=== PATIENT | male | born 1945 | race Caucasian/White ===

== ENCOUNTER 2024-05-14 18:15 | Inpatient (IN) | payer MEDICARE, SELFPAY ==
[2024-05-14] VITALS (8 sets, daily range): BP systolic 105–145; BP diastolic 55–82; BMI 28.9
--- NOTE | 2024-05-14 12:04 | ED.PDOC.TRB ---
ED Provider Triage
-
Patient seen by provider in Triage?: Seen in Triage
Attestation: A medical screening examination has been initiated by a qualified medical provider. Based on the assessment performed at this time, it has been determined that an emergent medical condition may exist and the patient has been informed
that further medical evaluation and possible additional diagnostic testing may be needed.
HPI: 79-year-old male presents to the emergency department for evaluation of diffuse leg swelling and fatigue. He attributes the fatigue to not eating or drinking as again he is concerned that anything he drinks will go to his legs. Swelling is
been ongoing for the past 1 to 2 weeks. No history of cardiac or liver disease. Admits that he does not routinely seek medical care.
GENERAL: Alert , in no apparent distress, appears generally pale versus jaundiced
EYE: No visual abnormalities.
NECK: Trachea midline
ENT: No visible abnormalities.
LUNGS: No acute respiratory distress
NEUROLOGICAL: Alert and oriented
SKIN: Skin intact. No visible changes.
MUSCULOSKELETAL: Moving extremities normally, diffuse edema bilateral lower extremities
PSYCH: Normal and appropriate interaction.
Suspect hepatic versus cardiogenic edema, higher index of suspicion for hepatic due to either jaundice or severe pallor that is noted. Check EKG, cardiac labs, will add direct bilirubin and CPK.
This is a medical evaluation conducted in person to initiate diagnostic evaluation and provide initial therapeutics. Please see further documentation by the treating clinician.
[2024-05-14 12:17] LABS: % Basophils 0.2 % (0-2); % Immature Granulocytes 0.3 % (0-0.5); % Lymphocytes 5.8 % (20.5-51.1); % Monocytes 9.3 % (1.7-9.3); % Neutrophils 84.4 % (42.2-75.2); Absolute Lymphocytes 0.7 10^3/uL (1.2-3.4); Absolute Monocytes 1.2 10^3/uL (0.1-0.6); Absolute Neutrophils 10.9 10^3/uL (1.4-6.5); Hematocrit 40.8 % (39.0-52.0); Hemoglobin 13.5 g/dL (13.0-18.0); Mean Corp Hgb Conc. 33.1 g/dL (33.0-37.0); Mean Corpuscular Hgb 28.2 pg (27.0-31.0); Mean Corpuscular Volume 85.2 fL (80.0-94.0); Mean Platelet Volume 9.8 fL (7.4-10.4); Nucleated Red Blood Cells % 0.2 % (-); Platelet Count 246 10^3/uL (130-400); Red Blood Cell Count 4.79 10^6/uL (4.70-6.10); Red Cell Dist. Width 14.4 % (11.5-14.5); White Blood Cell Count 12.9 10^3/uL (4.8-10.8)
[2024-05-14 12:29] LABS: ALT (SGPT) 289 U/L (0-50); AST (SGOT) 232 U/L (17-59); Albumin 3.9 g/dl (3.5-5.0); Alkaline Phosphatase 78 U/L (38-126); Blood Urea Nitrogen 56 mg/dl (9-20); Calcium 9.9 mg/dl (8.4-10.2); Carbon Dioxide 23 mmol/L (22-30); Chloride 98 mmol/L (98-107); Glucose 114 mg/dl (70-99); Potassium 5.6 mmol/L (3.5-5.1); Sodium 135 mmol/L (135-145); Total Bilirubin 2.6 mg/dl (0.2-1.3); Total Protein 6.7 g/dl (6.3-8.2); eGFR > 60.00
[2024-05-14 12:41] LABS: NT-proBNP > 27000 pg/ml; Troponin I < 0.012 ng/ml
[2024-05-14 13:15] LABS: Creatine Phosphokinase 73 U/L (55-170); Direct Bilirubin 0.9 mg/dl (0.0-0.4)
[2024-05-14 14:28] LABS: INR 1.77; PT 20.5 Sec (11.4-14.6)
--- NOTE | 2024-05-14 15:33 | ED.GENMED ---
History of Present Illness
General
Chief Complaint: Swelling
Source: patient
Exam Limitations: none
Time Seen by Provider: 05/14/24 15:08
Nursing documentation reviewed up to this point in time: agreed with
History of Present Illness
History of Present Illness:
79-year-old male presents emergency room complaining of leg swelling, bug bites. He has noticed he cannot put his shoes on. He also does get somewhat short of breath when talking. He denies seeing the bugs biting him.
Past History
Past History
ED Past Medical History: None (Has not seen a physician in 17 years)
ED Past Surgical History: Other (Cataracts)
Social History
Tobacco: Non-smoker
Alcohol: None
Drug: None
Living: alone
Review of Systems
Review of Systems
Allergies reviewed?: Yes
All Other Systems: Not applicable
Constitutional: Reports weight gain and fatigue
EENT: Reports no symptoms
Respiratory: Reports trouble breathing
Cardiac: Reports no symptoms; Denies chest pain
ABD/GI: Reports no symptoms
: Reports no symptoms
Musculoskeletal: Reports edema
Skin: Reports rash
Neurological: Reports no symptoms
Endocrine: Reports no symptoms
Hematologic/Lymphatic: Reports no symptoms
Psychiatric: Reports no symptoms
Phy Exam
Physical Exam
Physical Exam:
Physical Exam
General: Afebrile
Neck: supple. no meningeal signs. normal posterior pharynx
Heart: s1/s2 regular rate and rhythm, no murmur. equal radial
pulses.
HEENT: Pupils equal round reactive to light, EOMI
Lungs: Mild rales bilaterally
Abdomen: normal bowel sounds. not tender. no CVAT
Neuro: alert and oriented. no focal neurological deficits cranial nerves II through XII intact
Skin: Papular rash on all 4 extremities and trunk
Psychiatric: well kept. interactive and cooperative
Extremities: Bilateral lower extremity edema to thighs. no calf tenderness. negative homans. good distal pulses
Scores
Heart Failure Risk
Heart Failure Risk Score: Yes
History of Stroke or TIA: No
History of intubation for respiratory distress: No
Heart rate on ED arrival >/= 110: No
SaO2 <90% on arrival on room air: No
HR >/=110 during 3min walk test (or too ill to perform test): Yes
ECG has acute ischemic changes: No
Urea >/=12mmol/L (BUN 33.6mg/dL): Yes
Serum CO2>/=35mmol/L: No
Troponin I or T elevated to MS Level (0.4mg/dL): No
NT-proBNP >/=5,000ng/L (5,000pg/ml): Yes
HF Risk Score: 4
Admission Status: HIGH RISK 26.1% Consider SNF treatment or admission to hospital
Course
Orders/Labs/Results
Orders:
Orders
05/14/24 11:57
ECG [Electrocardiogram (*1)] Urgent
Reason for Study: Other
Other Reason for Exam: swelling
EKG- Treatment ONCE
05/14/24 12:02
Complete Blood Count/With Diff Urgent
Comprehensive Metabolic Panel Urgent
Creatine Phosphokinase Urgent
Comment: ADD ON
Direct Bilirubin Urgent
Comment: ADD ON
NT-proBNP Urgent
Troponin I Urgent
CR Chest - 2 Views Urgent
Comment:
Reason For Exam: leg edema
05/14/24 12:07
Add On- LAB Urgent
Tests Added?: direct bilirubin, CPK
05/14/24 13:59
Prothrombin Time Urgent
05/14/24 15:37
Furosemide [Lasix] 40 mg IV NOW STA
Abnormal Lab Results
05/14/24 05/14/24
12:02 13:59
WBC 12.9 H 10^3/uL
(4.8-10.8)
Absolute Neuts (auto) 10.9 H 10^3/uL
(1.4-6.5)
Absolute Lymphs (auto) 0.7 L 10^3/uL
(1.2-3.4)
Absolute Monos (auto) 1.2 H 10^3/uL
(0.1-0.6)
Neutrophils % 84.4 H %
(42.2-75.2)
Lymphocytes % 5.8 L %
(20.5-51.1)
PT 20.5 H Sec
(11.4-14.6)
Potassium 5.6 H mmol/L
(3.5-5.1)
BUN 56 H mg/dl
(9-20)
Glucose 114 H mg/dl
(70-99)
Total Bilirubin 2.6 H mg/dl
(0.2-1.3)
Direct Bilirubin 0.9 H mg/dl
(0.0-0.4)
AST 232 H U/L
(17-59)
ALT 289 H U/L
(0-50)
05/14/24 12:02
05/14/24 12:02
Vital Signs
Initial and Last Documented VS:
Initial Vital Signs
Temp Pulse Resp BP Pulse Ox
98.0 F 107 18 144/82 95
05/14/24 11:49 05/14/24 11:49 05/14/24 11:49 05/14/24 11:49 05/14/24 11:49
Last Documented Vital Signs
Temp Pulse Resp BP Pulse Ox
98.0 F 94 22 144/82 95
05/14/24 11:49 05/14/24 14:45 05/14/24 14:45 05/14/24 11:49 05/14/24 11:49
MDM/Problems Addressed
Differential Diagnosis Includes:
Bedbugs, CHF, hyperkalemia, pneumonia., Cellulitis
MDM/Problems Addressed:
79-year-old male with new onset CHF exacerbation. Hyperkalemia. Papular rash suspicious for bedbugs.
Chronic conditions affecting care: Other (Has not seen primary care in over 17 years)
*Radiology
Radiology exam reviewed: radiology read reviewed (Chest x-ray shows CHF)
*Pulse Oximetry
Patient hypoxic: no
*EKG
Interpreted by ED Provider?: Yes
EKG Intrepretation Date: 05/14/24
EKG Intrepretation Time: 12:06
Interpretation: abnormal
Comparison EKG: no comparison EKG present
Heart Rate: 105
Rate: tachycardiac
Rhythm: sinus tachycardia
Ottosen: normal axis
Interval: normal interval
QRS Pattern: right bundle branch block and other (LAFB)
Ischemia: non-specific ST changes
*Scout Leaser Interpretation
Rate: tachycardiac
Interpretation: abnormal
Heart Rate: 105
Rhythm: sinus tachycardia
*Critical Care Note
Total Time (30-74mins, 75-104mins- exclusive of procedures): Not Applicable
Data Reviewed
Further Testing Considered But Not Given:
CT chest not indicated
Patient Management
Social determinants of health affecting care: Living situation and Poor outpatient follow-up
Discussion with other providers: Hospitalist
Escalation/DeEscalation of care consider admission/obs:
Admit indicated
ED Attending Note
-
Portions of this chart may have been created with voice recognition software.� Occasional wrong word or��sound alike� substitutions may have occurred due to the inherent limitations of voice recognition software.
Discharge Plan
Departure
Patient Disposition: Admit
Date of Disposition: 05/14/24
Time of Disposition: 15:37
Admit to: Telemetry
Presentation/result/management discussed w/ accepting MD/DO: Hospitalist
Patient with high blood pressure during this ER visit?: Yes
Condition: Fair
Discharge Problem:
Acute exacerbation of CHF (congestive heart failure), Acute hyperkalemia, Bug bites
Referrals:
NONE,* [Family Provider] -
Interventions
Interventions:
*Risk Screen - Suicide Last Done: 05/14/24 14:09
*General Assessment Last Done: 05/14/24 14:09
*Neglect/Abuse Screening Last Done: 05/14/24 14:09
ED- Cardiac Assessment Last Done: 05/14/24 14:09
ED- Pulmonary Assessment Last Done: 05/14/24 14:09
ED-Skin Assessment Last Done: 05/14/24 14:09
Discharge Date and Time
Print Language: CHINESE
[2024-05-14] MEDS: LASIX 40 MG IV (15:51)
--- NOTE | 2024-05-14 16:44 | HPS.HSE ---
Addendum entered and electronically signed by Felix Gaytan MD 05/14/24 21:49:
I saw and examined the patient.
The EXERCISE PLANNER or PA's note was reviewed and I agree with the note.
Comment:
79M�Former ETOH use disorder, no significant PMHX a/w�
new onset�acute CHF, acute transaminitis/hyperbilirubinemia, Rash to trunk, back, arms, legs on Rt side of the body and Rt Extremities while he was cutting a yellow coker flower he believes he was scraped up. Noted Hyperkalemia.
- IV Lasix. and f/u repeat K.
- ECHO in AM.
[facility] card onsult. ID consult.
IP TLM.
Original Note:
Family Physician
-
Family Physician: * NONE
Chief Complaint
-
Leg edema extending to abdomen with fatigue, also rash to trunk abdomen back arms and legs
History of Present Illness
79-year-old male who lives alone complaining of diffuse leg swelling along with fatigue for the past 2 weeks. He is afraid to eat and drink as he feels his legs will swell worse. He reports swelling to his abdomen. He states approximate 2 weeks
ago he was outside trimming a yellow flower coker where he became scraped on his arms, legs, trunk, abdomen and back. He also reports he has been picking at these scabbed areas he denies fever, chills, tick bites, headache, sore throat, chest pain,
palpitations, shortness of breath, cough, nausea, vomiting, diarrhea, urinary symptoms. He states he used to drink daily 2-3 beers or several cocktails for approximate 10 to 15 years. At age 33 he denies any history of hepatitis. He denies any
NSAID use, Aleve, rare aspirin.
He reports he does not routinely seek medical care and the last time needed was age 61 for bilateral cataract extraction.
Medical History
Past Medical History
Past Medical History: Reports Other
Additional Past Medical History:
Former alcohol abuse drink 2-3 beers or 2-3 cocktails daily x 10 to 15 years started age 33
Past Surgical History: Reports Other (Bilateral cataract extraction age 61)
Social History
Tobacco: Non-smoker
Alcohol: Former (Former alcohol abuse drink 2-3 beers or 2-3 cocktails daily x 10 to 15 years started age 33)
Drug: Marijuana, Cocaine, Narcotics and IVDA
Personal: Single
Living: Alone
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
Family History
Family History: Other (Mother history CHF, HTN 92 father age 91 unsure patient has 2 brothers 1 sister living unsure medical problems)
Allergies / Home Medications
Allergies reflects when Allergies were last updated in [employer].
Home Medications with original date entered in [employer]
Allergy/Medication List:
Allergies
Allergy/AdvReac Type Severity Reaction Status Date / Time
No Known Allergies Allergy Unverified 05/14/24 11:56
Home Medications
No Meds [No Current Medications] 05/14/24
Review of Systems
-
History Source: Patient
A 12 point ROS was completed and negative except as noted: Yes
Constitutional: Reports Weight Gain; Denies Fever or Chills
EENT: Denies Sore Throat or Runny Nose
Respiratory: Reports Trouble Breathing (DELUCA, orthopnea); Denies Cough
Cardiac: Denies Chest Pain, Diaphoresis, Palpitations or Syncope
Abdomen/GI: Reports Abdominal Pain (Generalized distention); Denies Nausea, Vomiting, Diarrhea, Constipated, Bloody Stools or Black Stools
: Denies Dysuria, Frequency, Flank Pain, Incontinence, Difficulty Voiding, Urgency or Bleeding
Musculoskeletal: Reports Edema (+2-3 edema from legs up to abdomen); Denies Joint Pain
Skin: Reports Rash (Linear scratches along with macular scarred areas to trunk, abdomen, arms and legs patient reports from scratching and picking); Denies Itching
Neurological: Denies Dizzy, Headache or Weakness
Endocrine: Reports No Symptoms
Hematologic/Lymphatic: Reports No Symptoms
Psych: Reports Calm
Physical Exam
Vital Signs
Vital Signs
Temp Pulse Resp BP Pulse Ox
98.0 F 94 22 138/72 95
05/14/24 11:49 05/14/24 14:45 05/14/24 14:45 05/14/24 15:51 05/14/24 11:49
Physical Exam
General: Conversant; No Pain, Fever or Chills
HEENT: NormoCephalic, Anicteric, Moist mucous membranes, PERRLA, [place] Conjunctivae, No Ptosis, Pharyngeal Erythema and Neck Nontender
Respiratory: Other (Diminished at bases); No Wheezes or Rales
Cardiac: S1/S2, Regular Rhythm, Peripheral Edema (+2-3 edema from legs to thighs to abdomen) and JVD; No Murmur, Rub or Gallop
Breast: Deferred by me
GI: Soft, Non Distended, Normal Bowel Sounds, Distended (Secondary to CHF) and Other (Hepatomegaly on exam negative splenomegaly)
Genito-urinary: Deferred by me
Musculoskeletal: No Clubbing, No Cyanosis, Edema, Left Lower Extremity (+2 to 3 feet to abdomen) and Edema, Right Lower Extremity (+2 to 3 feet to abdomen); No Edema, Left Upper Extremity or Edema, Right Upper Extremity
Skin: Warm, Dry, Rash (Linear scratches along with macular scarred areas to trunk, abdomen, arms and legs patient reports from scratching and picking) and Jaundice (Mild to upper face, neck, upper arms)
Neuro: AO x 3, No Motor Deficits, Nonfocal/grossly intact, Cranial Nerves Intact and No Sensory Deficits; No Slurred Speech, Facial Droop or Tremors
Psych: Calm
Laboratory Results
-
05/14/24 12:02
05/14/24 12:02
Laboratory Results
PT 20.5 Sec (11.4-14.6) H 05/14/24 13:59
INR 1.77 05/14/24 13:59
Total Bilirubin 2.6 mg/dl (0.2-1.3) H 05/14/24 12:02
AST 232 U/L (17-59) H 05/14/24 12:02
ALT 289 U/L (0-50) H 05/14/24 12:02
Alkaline Phosphatase 78 U/L (38-126) 05/14/24 12:02
Troponin I < 0.012 ng/ml 05/14/24 12:02
Impression/Plan
-
Impression/plan:
Admit to telemetry
#Acute CHF
BNP greater than 27,000
I/O, daily weights
-IV Lasix 40 mg given in ER
-Continue IV Lasix 40 mg twice daily
-Consult [facility] cardiology
-2D echo
CXR: Mild CHF
#Acute transaminitis/hyperbilirubinemia/jaundice
AST 232, ALT 289, alk phos 78
T. bili 2.6/direct bili 0.9, INR 1.77
-Check ultrasound abdomen/liver
#Rash to trunk, back, arms, legs
-Patient reports was cutting a yellow coker flower he believes he was scraped up from this 2 weeks ago
-Consult ID
DVT prophylaxis
Subcu heparin
Full code
[2024-05-14] MEDS: HEPARIN 5000 UNITS SC (20:58)
[2024-05-14 22:10] LABS: Blood Urea Nitrogen 57 mg/dl (9-20); Calcium 9.6 mg/dl (8.4-10.2); Carbon Dioxide 22 mmol/L (22-30); Chloride 98 mmol/L (98-107); Estimated Creatinine Clearance 49 ml/min; Glucose 98 mg/dl (70-99); Potassium 5.3 mmol/L (3.5-5.1); Sodium 132 mmol/L (135-145); eGFR > 60.00
--- NOTE | 2024-05-14 22:42 | PTCARENOTE ---
Patient arrived on unit, ambulated to bed w/o assistance. Admission completed, nursing shift assessment completed, see for details. Patient with rash over b/l arms and legs and on trunk (anterior and posterior), stated from trimming [place]izabeth
bushes. Does not bother him at this time. Medications given as per OCT. Plan of care discussed, patient's questions answered. Patient resting in bed, call todd in reach.
[2024-05-14] MEDS: LASIX IV (23:05)
[2024-05-15] VITALS (8 sets, daily range): BP systolic 100–120; BP diastolic 46–65; PULSE 51; O2SAT 94; BMI 28.8
--- NOTE | 2024-05-15 03:04 | DOWNTIME ---
There was a [employer] Client [employer] Downtime on 05/15/2024 from 0100 to 05/15/2024 at 0300. Downtime documentation of patient's care, including medication administrations, has been reconciled in the electronic record per guidelines. Refer to the
patient's paper chart under the miscellaneous tab to see printed paper medication records and downtime forms.
[2024-05-15 07:33] LABS: % Basophils 0.1 % (0-2); % Immature Granulocytes 0.3 % (0-0.5); % Lymphocytes 9.5 % (20.5-51.1); % Monocytes 10.7 % (1.7-9.3); % Neutrophils 79.4 % (42.2-75.2); Absolute Lymphocytes 1.1 10^3/uL (1.2-3.4); Absolute Monocytes 1.3 10^3/uL (0.1-0.6); Absolute Neutrophils 9.5 10^3/uL (1.4-6.5); Hematocrit 39.5 % (39.0-52.0); Hemoglobin 12.9 g/dL (13.0-18.0); Mean Corp Hgb Conc. 32.7 g/dL (33.0-37.0); Mean Corpuscular Hgb 28.5 pg (27.0-31.0); Mean Corpuscular Volume 87.4 fL (80.0-94.0); Mean Platelet Volume 10.4 fL (7.4-10.4); Nucleated Red Blood Cells % 0.2 % (-); Platelet Count 201 10^3/uL (130-400); Red Blood Cell Count 4.52 10^6/uL (4.70-6.10); Red Cell Dist. Width 14.5 % (11.5-14.5); White Blood Cell Count 11.9 10^3/uL (4.8-10.8)
[2024-05-15] MEDS: LASIX 40 MG IV ×2 (08:12→15:52)
[2024-05-15] MEDS: FLUSH (NSS) 1 FLUSH IV ×2 (08:12→15:53)
[2024-05-15] MEDS: HEPARIN 5000 UNITS SC ×2 (08:12→19:48)
[2024-05-15 08:22] LABS: ALT (SGPT) 272 U/L (0-50); AST (SGOT) 207 U/L (17-59); Albumin 3.8 g/dl (3.5-5.0); Alkaline Phosphatase 72 U/L (38-126); Blood Urea Nitrogen 60 mg/dl (9-20); Calcium 9.7 mg/dl (8.4-10.2); Carbon Dioxide 25 mmol/L (22-30); Chloride 97 mmol/L (98-107); Estimated Creatinine Clearance 42 ml/min; Glucose 77 mg/dl (70-99); HDL Cholesterol 18 mg/dl; LDL Cholesterol, Calculated 88 mg/dl; Magnesium 2.3 mg/dl (1.6-2.3); Potassium 5.4 mmol/L (3.5-5.1); Sodium 136 mmol/L (135-145); Total Bilirubin 2.7 mg/dl (0.2-1.3); Total Cholesterol 123 mg/dl (50-199); Total Protein 6.7 g/dl (6.3-8.2); Triglyceride 89 mg/dl (10-149); Very Low Density Lipoprotein 17 mg/dl (0-30); eGFR 55.19
--- NOTE | 2024-05-15 09:24 | CON.CAR ---
Consultation
Consultation Request
Date/Time Consultation Requested: 05/15/24, 7am
Date/Time Consultation Performed: 05/15/24, 8am
Requesting Provider: Segundo
Performing Provider: Andrew
Reason for Consultation: SOB
Medical History
-
Chief Complaint: SOB, edema
History of Present Illness:
79 yo male with no significant medical history, but also no recent medical care (approx 16yrs) is admitted with progressive SOB and edema. There is no chest pain, dizziness, syncope, palps. He thinks has been going on for weeks, maybe more.
Past Medical History
Past Medical History: None
Past Surgical History: None
Social History
Tobacco: Non-Smoker
Family History
Family History: Other (mother with h/o HF, details unknown)
Allergies / Home Medications
Allergy/AdvReac Type Severity Reaction Status Date / Time
No Known Allergies Allergy Unverified 05/14/24 11:56
�Medication �Instructions �Recorded �Confirmed �Type
No Meds [No Current Medications] 05/14/24 05/14/24 History
Review of Systems
-
All other systems: Negative unless noted
Respiratory: Trouble Breathing
Musculoskeletal: Edema
Skin: Rash
Physical Exam
Vital Signs
Temp Pulse Resp BP Pulse Ox
97.3 F 90 18 115/52 99
05/15/24 06:57 05/15/24 08:12 05/15/24 06:57 05/15/24 08:12 05/15/24 08:10
Lab Results
05/15/24 06:20
05/15/24 06:20
Troponin I < 0.012 ng/ml 05/14/24 12:02
Vbs-J-Xihynbbjlzb Pept > 04231 pg/ml 05/14/24 12:02
Physical Exam
General: Well Developed, Well Nourished and No Apparent Distress
HEENT: Normocephalic and Anicteric
Respiratory: Clear and Non Labored Respirations
Cardiac: S1/S2 (normal), Regular Rhythm, Murmur (III/ systolic at RUSB), Peripheral Edema (2+ LE edema) and JVD (present)
GI: Soft, Non Tender and Non Distended
Musculoskeletal: No Clubbing, No Cyanosis and Edema (2+ LE edema)
Skin: Rash
Neuro: AO x 3
Psych: Calm
Impression / Plan
-
79 yo male with no significant medical history, but also no recent medical care (approx 16yrs) is admitted with progressive SOB and edema.
# SOB and edema: suspect acute HF, type unknown
-severe, requiring hospitalization and close monitoring of labs and tele for IV diuresis
-given murmur on exam, may be in setting of aortic stenosis
-echo today
-continue IV lasix
# Heart murmur
-suspect
-echo
# Rhythm
-sinus with frequent PVC's, bigeminy
-echo
# Bifascicular block
-noted on EKG
-echo
# Abnl LFT
-per hospitalist team
Data Reviewed
-
EKG: Tracing Personally Visualized and interpreted (ST, bifascicular block) and Other (Tele: SR, PVC's, bigeminy)
Labs: Labs Reviewed by me
--- NOTE | 2024-05-15 10:01 | CON.ID ---
Consultation
-
Date/Time Consultation Requested: 05/14/24 22:40
Date/Time Consultation Performed: 05/15/24 10:01
Requesting Provider: Grady glover
Performing Provider: shledon sanders
Reason for Consultation: rash
Chief Complaint / Past History
Chief Complaint
Leg edema extending to abdomen with fatigue, also rash to trunk abdomen back arms and legs
History of Present Illness
Mr Roach is an 79 year old male without significant past medical history also not routinely seeking medical care who presented here 05/14 for fatigue and diffuse swelling x2 weeks. Patient relates onset of symptoms to trimming a coker outside and
scrapping his arms/legs/trunk;reports he was physically pushing himself into the [employer] coker in order to trim it and get scrapped up. He subsequently picked at these areas. No known tick bites. No fevers, chills, headache, sore throat, chest
pain, palpitaions, shortnes of breath, cough, nausea, vomiting, diarrhea or dysuria. Denies any history of hepatitis to me
Since arrival here he has been afebrile, bp stable, wbc 12.9, hgb 13.5 (now 12.9), plt 246, L shift is noted, eos were not present, cr 1.1, t bili on arrival 2.6 with 0.9 d bili, ast 232, alt 289, alk phos 78, ck 73, [place]np [id number], lyme serology sent,
lyme pcr was ordered, abd US: ascites, no cirrhosis, CXR: chf. Currently not on antibiotics, ID is consulted for assistance with management.
Past History
Additional Past Medical History:
not seeking medical care
Additional Past Surgical History:
cataract extraction
Allergy History:
No Known Allergies Allergy (Unverified 05/14/24 11:56)
Medications Reviewed: Yes
Social History
Tobacco: Non-Smoker
Alcohol: Former (remote history of etoh use)
Drug: Former User (Marijuana, Cocaine, Narcotics and IVDA)
Personal: Single
Family History
Family History: Other (CHF mom)
Review of Systems
Review of Systems
General: Negative Fever or Chills
All systems: All other systems were reviewed and were negative
Vital Signs
Temp Pulse Resp BP Pulse Ox
97.3 F 90 18 115/52 99
05/15/24 06:57 05/15/24 08:12 05/15/24 06:57 05/15/24 08:12 05/15/24 08:10
Physical Exam
Physical Exam
Constitutional: No Acute Distress and Chronically Ill
Cardiovascular: Regular Rate and S1/S2; Negative Murmur or Rub
Pulmonary: Clear and Symmetric; Negative Wheezes, Rales or Rhonchi
Gastrointestinal: Soft, Non Tender, Non Distended and Normal Bowel Sounds
Skin: Warm and Dry; Negative Rash or Jaundice
Lab / Diagnostic Study Results
05/15/24 06:20
05/15/24 06:20
Abs Immat Gran (auto) 0.0 10^3/uL (0-0.05) 05/15/24 06:20
Absolute Neuts (auto) 9.5 10^3/uL (1.4-6.5) H 05/15/24 06:20
Absolute Lymphs (auto) 1.1 10^3/uL (1.2-3.4) L 05/15/24 06:20
Absolute Monos (auto) 1.3 10^3/uL (0.1-0.6) H 05/15/24 06:20
Absolute Basos (auto) 0.0 10^3/uL (0-0.2) 05/15/24 06:20
Immature Gran % 0.3 % (0-0.5) 05/15/24 06:20
Neutrophils % 79.4 % (42.2-75.2) H 05/15/24 06:20
Lymphocytes % 9.5 % (20.5-51.1) L 05/15/24 06:20
Monocytes % 10.7 % (1.7-9.3) H 05/15/24 06:20
Eosinophils % 0.0 % (0-6) 05/15/24 06:20
Basophils % 0.1 % (0-2) 05/15/24 06:20
PT 20.5 Sec (11.4-14.6) H 05/14/24 13:59
INR 1.77 05/14/24 13:59
Assessment / Plan
Acute Transaminitis
Elevated Tbili
- abd US without obstruction or cirrhosis, anasarca is noted
- check for viral hepatitis: A/B/C
- minimal, transient hyponatremia and plt normal
- acute lyme serologies sent, history is somewhat suggestive of a tick born infection
- lyme PCR should only be done on joint fluid, has very low sensitivity on the serum - discontinued
- babesia smear is ordered - reasonable consideration though no documented fevers and not anemic
- trial of doxycycline
[2024-05-15] MEDS: VIBRAMYCIN 100 MG PO ×2 (12:42→19:49)
--- NOTE | 2024-05-15 12:44 | W.PN.HOSP.TC ---
Today's Communication/Plan
-
Continue IV diuretics and follow-up echo
Continue on telemetry
Start empiric doxycycline, follow-up Lyme and Babesia testing
Trend daily CBC and temperature curve
Trend BMP and daily LFTs
Assessment / Plan
Assessment / Plan
#Acute decompensated CHF, unspecified EF
#Cardiac murmur, likely aortic stenosis
-Suspect NICM and valvular etiology per exam, negative troponin on arrival
-On exam he does have a crescendo decrescendo murmur across precordium
-Valve examines fairly well with audible S2, nondelayed carotid upstroke
-He does have significant pitting edema and bibasilar crackles on exam
-Was started on IV Lasix regimen, echocardiogram pending
-Cardiology is following, warm and wet phenotype
Plan
-Continue with IV Lasix 40 mg twice daily, monitor I's/O's and weight, trend BMP
-Start dietary restrictions with 4 g sodium, no added salt and 60 ounce fluid restriction
-Follow-up echocardiogram and plan for GDMT accordingly
-Monitor on telemetry
#Cardiac ectopy
-monitoring engineer showed significant PVC burden
-No evidence of underlying malignant arrhythmias at this time
-Consider starting low-dose beta-deion regardless of EF
#Rash -- right sided extremities and torso, no pruritus; no target lesions
#Acute transaminitis
#Elevated T. bili
-Differential diagnoses include viral hepatitis, tickborne illness, parasitic disease
-He does have history of IV drug use and documentation, viral serologies sent
-Was recently outdoors trimming a coker when he noticed rash afterwards, Lyme serology and Babesia blood smear pending
-Liver ultrasound yesterday showed mild liver ascites, normal contour without evidence of cirrhosis or fatty infiltration
-ID following, starting doxycycline empirically
Plan
-Continue with doxycycline regimen
-Follow-up on hepatitis viral serology
-Follow-up on Lyme and Babesia testing
-Monitor LFTs daily
-Monitor rash clinically
-Consider GI consult
DVT prophylaxis: Heparin
Diet: Sodium and fluid restricted
CODE STATUS: Full code
Anticipated Discharge: > 48 hours
Subjective/Interval History
-
Date of Service: May 15, 2024
Seen and examined at the bedside. No acute events overnight. AFVSS this morning.
States he has not seen a physician in 16 to 20 years. Was cutting branches in a coker near his home, yellow in color, afterwards he noticed a rash that is mostly over the right extremities and torso.
He denies any chest pain, shortness of breath, fevers or chills, GI complaints, urinary issues, abnormal bleeding or bruising, paresthesias or weakness.
Objective Data
-
Labs:
Laboratory Results
05/15/24
06:20
WBC 11.9 H
Hgb 12.9 L
Hct 39.5
Plt Count 201
Sodium 136
Potassium 5.4 H
Chloride 97 L
Carbon Dioxide 25
BUN 60 H
Creatinine 1.3
Glucose 77
Calcium 9.7
Total Bilirubin 2.7 H
AST 207 H
ALT 272 H
Alkaline Phosphatase 72
Vital Signs:
Vital Signs
Temp Pulse Resp BP Pulse Ox
97.8 F 51 22 107/51 94
05/15/24 12:13 05/15/24 12:13 05/15/24 12:13 05/15/24 12:13 05/15/24 12:13
I&O
05/14/24 05/15/24 05/16/24
06:59 06:59 06:59
Output Total 700 / 700
Balance -700 / -700
Review of Systems
-
History Source: Patient
All other systems: Reviewed and negative
Physical Exam
-
General: Well Nourished, No Apparent Distress and Comfortable
HEENT: Normocephalic, Atraumatic, Moist Mucous Membranes and Anicteric
Respiratory: Rales (Bibasilar) and Non Labored Respirations; Negative Wheezes, Rhonchi or Accessory Resp Muscle Use
Cardiac: Regular Rhythm (Extra beats/PVCs), S1/S2, Murmur (3/6 crescendo decrescendo ANTONIA across precordium), JVD and Gallop (S4 positive); Negative Rub
GI: Soft, Nontender, Nondistended and Normal Bowel Sounds
Musculoskeletal: No Clubbing, No Cyanosis and Other (3+ bilateral pitting edema to the lower extremity)
Skin: Warm, Dry, Normal Turgor and Other (Peripheral extremities are warm and well-perfused); Negative Rash or Jaundice
Neuro: AO x 3, Nonfocal/Grossly Intact and Central Nerve's Intact
Data Reviewed
-
Medical Tests (Nuc Med, Echo etc): Discussed with Physician and Discussed with Patient
Labs: Labs Reviewed by me, Discussed with Physician and Discussed with Patient
[2024-05-15] MEDS: TOPROL XL 25 MG PO ×2 (15:04→19:49)
[2024-05-15] MEDS: LOW STRENGTH ASPIRIN 324 MG PO (15:04)
--- NOTE | 2024-05-15 15:12 | PTCARENOTE ---
Pt AAO x3, sl anxious/forgetful at times. COLLIER well, ambulatory in room/to BR; no /o weakness/dizziness. VSS. Telemetry:NSR with PVC's. On room air- pulseox 96%, no c/o SOB. Abd large, soft, javier PO; takes mostly liquids on meal trays. Pt aware
of NPO past midnight 05/16 for cardiac cath. Voids large amts clear deepika urine in urinal. Resting in chair at present, no c/o. Will continue to monitor.
--- NOTE | 2024-05-15 16:41 | CM ---
Alert awake oriented patient who lives alone in a 2 story home with 3 step to enter and 12 steps to bed and bathroom. He is independent in all activities of daily living.
No VN hx /No SNF hx
No adaptive devices
Pharmacy [facility]ene[facility]
PCP pt has none . PCP list given [facility] and [facility] [phone]
PLAN Home no anticipated needs
[2024-05-16] VITALS (13 sets, daily range): BP systolic 93–120; BP diastolic 53–82; BMI 28.7
[2024-05-16 06:50] LABS: % Basophils 0.2 % (0-2); % Immature Granulocytes 0.4 % (0-0.5); % Monocytes 9.9 % (1.7-9.3); % Neutrophils 80.5 % (42.2-75.2); Absolute Immature Granulocytes 0.1 10^3/uL (0-0.05); Absolute Lymphocytes 1.1 10^3/uL (1.2-3.4); Absolute Monocytes 1.2 10^3/uL (0.1-0.6); Absolute Neutrophils 9.6 10^3/uL (1.4-6.5); Hematocrit 40.5 % (39.0-52.0); Hemoglobin 13.4 g/dL (13.0-18.0); Mean Corp Hgb Conc. 33.1 g/dL (33.0-37.0); Mean Corpuscular Hgb 28.9 pg (27.0-31.0); Mean Corpuscular Volume 87.3 fL (80.0-94.0); Mean Platelet Volume 10.2 fL (7.4-10.4); Nucleated Red Blood Cells % 0.6 % (-); Platelet Count 201 10^3/uL (130-400); Red Blood Cell Count 4.64 10^6/uL (4.70-6.10); Red Cell Dist. Width 14.5 % (11.5-14.5); White Blood Cell Count 11.9 10^3/uL (4.8-10.8)
[2024-05-16 07:02] LABS: INR 1.97; PT 22.6 Sec (11.4-14.6)
[2024-05-16 07:39] LABS: ALT (SGPT) 288 U/L (0-50); AST (SGOT) 253 U/L (17-59); Albumin 3.6 g/dl (3.5-5.0); Alkaline Phosphatase 72 U/L (38-126); Blood Urea Nitrogen 70 mg/dl (9-20); Calcium 9.6 mg/dl (8.4-10.2); Carbon Dioxide 22 mmol/L (22-30); Chloride 97 mmol/L (98-107); Direct Bilirubin 1.1 mg/dl (0.0-0.4); Estimated Creatinine Clearance 39 ml/min; Glucose 84 mg/dl (70-99); Magnesium 2.2 mg/dl (1.6-2.3); Potassium 5.3 mmol/L (3.5-5.1); Sodium 136 mmol/L (135-145); Total Bilirubin 2.8 mg/dl (0.2-1.3); Total Protein 6.5 g/dl (6.3-8.2); eGFR 50.49
[2024-05-16] MEDS: HEPARIN 5000 UNITS SC ×2 (08:08→20:31)
[2024-05-16] MEDS: TOPROL XL 25 MG PO (08:09)
[2024-05-16] MEDS: LASIX 40 MG IV ×2 (08:09→18:38)
[2024-05-16] MEDS: VIBRAMYCIN 100 MG PO ×2 (08:09→20:33)
[2024-05-16] MEDS: LOW STRENGTH ASPIRIN 81 MG PO (08:09)
--- NOTE | 2024-05-16 11:32 | W.PN.HOSP.TC ---
Today's Communication/Plan
-
Continue with IV Lasix
Coronary angiography today
Titrate GDMT as hemodynamics allow
Plan for TAVR
Continue doxycycline and trend LFTs
Follow-up Lyme serology
Assessment / Plan
Assessment / Plan
#Acute decompensated HFrEF
#Severe aortic stenosis
#Severe pulmonary hypertension with TR
#PVCs
-TTE yesterday showed EF 30% with global hypokinesis, severe aortic stenosis with high gradient and JUDSON 0.8
-Suspect NICM with degree of valvular stenosis though cannot rule out ischemic disease, limited history
-Will start on onto IV Lasix 40 mg twice daily regiment upon arrival to the hospital
-Volume status is improving, leg edema better than yesterday; suspect I's/O's not accurate
-Started on beta-deion for GDMT and reduction of PVC burden
-Cardiology is following, warm and wet phenotype
Plan
-Continue with IV Lasix 40 mg twice daily, monitor I's/O's and weight, trend BMP
-Continue with metoprolol succinate 25 mg daily with goal HR <75
-Will add additional GDMT such as ARB as hemodynamics allow
-Start dietary restrictions with 4 g sodium, no added salt and 60 ounce fluid restriction
-Plan for TAVR
-Monitor on telemetry
#Rash -- right sided extremities and torso, no pruritus; no target lesions
#Acute transaminitis
#Elevated T. bili
-Differential diagnoses include viral hepatitis, tickborne illness, parasitic disease; also possible LFTs elevated from congestive hepatopathy
-He does have history of IV drug use and documentation, viral hepatitis serologies sent though results are still pending
-Was recently outdoors trimming a coker when he noticed rash afterwards, Lyme serology and Babesia blood smear pending
-Liver ultrasound yesterday showed mild liver ascites, normal contour without evidence of cirrhosis or fatty infiltration
-Peripheral smear without signs of Babesia; LFTs are relatively stable and mildly elevated as of now
-ID following, starting doxycycline empirically
Plan
-Continue with doxycycline regimen
-Follow-up on hepatitis viral serology
-Follow-up on Lyme serology
-Monitor LFTs daily
-Monitor rash clinically
#Hyperkalemia
-Mild, stable with potassium near 5.4
-Currently on IV diuretics, expect this will improve
-Trend daily BMP as above
#Elevated serum creatinine
-No previous records, difficult to ascertain if this is an HUE versus CKD
-Suspect that he does have a degree of chronic disease, has not seen doctors in years
-Will continue to trend BMP and avoid unnecessary nephrotoxins as possible
DVT prophylaxis: Heparin
Diet: Sodium and fluid restricted
CODE STATUS: Full code
Anticipated Discharge: > 48 hours
Subjective/Interval History
-
Date of Service: May 16, 2024
Seen and examined while sitting in the chair this morning. No acute events overnight. AFVSS this morning
He states he feels fairly well, swelling in legs is better. Rash not significantly changed from yesterday. Scheduled for heart catheterization
He denies any chest pain, shortness of breath, fevers or chills, nausea, vomiting, diarrhea, constipation, urinary issues, abnormal bleeding or bruising, paresthesias or weakness.
Objective Data
-
Labs:
Laboratory Results
05/16/24
06:17
WBC 11.9 H
Hgb 13.4
Hct 40.5
Plt Count 201
PT 22.6 H
INR 1.97
Sodium 136
Potassium 5.3 H
Chloride 97 L
Carbon Dioxide 22
BUN 70 H
Creatinine 1.4 H
Glucose 84
Calcium 9.6
Total Bilirubin 2.8 H
AST 253 H
ALT 288 H
Alkaline Phosphatase 72
Vital Signs:
Vital Signs
Temp Pulse Resp BP Pulse Ox
97.5 F 79 16 94/56 100
05/16/24 11:05 05/16/24 11:05 05/16/24 11:05 05/16/24 11:05 05/16/24 11:05
I&O
05/15/24 05/16/24 05/17/24
06:59 06:59 06:59
Intake Total 660 / 660
Output Total 700 / 700 900 / 900
Balance -700 / -700 -240 / -240
Review of Systems
-
History Source: Patient
All other systems: Reviewed and negative
Physical Exam
-
General: Well Nourished, No Apparent Distress, Comfortable and Other (Very pleasant)
HEENT: Normocephalic, Atraumatic, Moist Mucous Membranes and Anicteric
Respiratory: Non Labored Respirations and Decreased Breath Sounds (Bases); Negative Wheezes, Rales, Rhonchi or Accessory Resp Muscle Use
Cardiac: Regular Rhythm, S1/S2, Murmur and JVD; Negative Rub or Gallop
GI: Soft, Nontender, Nondistended and Normal Bowel Sounds
Musculoskeletal: No Clubbing, No Cyanosis and Other (2+ bilateral lower extremity edema)
Skin: Warm, Dry and Normal Turgor; Negative Rash or Jaundice
Neuro: AO x 3, Nonfocal/Grossly Intact and Central Nerve's Intact
Data Reviewed
-
Medical Tests (Nuc Med, Echo etc): Report Reviewed by me and Discussed with Patient
Labs: Labs Reviewed by me and Discussed with Patient
[2024-05-16 14:09] LABS: Hepatitis B Surface Antigen Negative (Negative)
[2024-05-16 14:28] LABS: Hepatitis B Core Ab, Total Negative (Negative); Hepatitis B Surface Antibody Negative; Hepatitis C Antibody Negative (Negative)
[2024-05-16 15:16] LABS: Hepatitis A Antibody, Total Negative (Negative)
--- NOTE | 2024-05-16 16:41 | W.PN.ID1 ---
Date of Service
Date of Service: May 16, 2024
Today's Communication
- trial of doxycycline
- agree with moving forward with cardiac cath, no further optimization needed from ID perspective
Assessment / Plan
Acute Transaminitis
Elevated Tbili
- abd US without obstruction or cirrhosis, anasarca is noted
- check for viral hepatitis: A/B/C negative
- minimal, transient hyponatremia and plt normal
- acute lyme serologies sent, history is somewhat suggestive of a tick born infection
- babesia smear negative
- trial of doxycycline
- agree with moving forward with cardiac cath, no further optimization needed from ID perspective
Chief Complaint
-: Other (rash, transaminitis)
Subjective / Review of Systems
afebrile
no new complaints
Vital Signs / Physical Exam
Vital Signs
Vital Signs
Temp Pulse Resp BP Pulse Ox
97.4 F 68 16 115/57 98
05/16/24 15:25 05/16/24 15:25 05/16/24 15:25 05/16/24 15:25 05/16/24 15:25
Physical Exam
Constitutional: No Acute Distress
Cardiovascular: Regular Rate and S1/S2; Negative Murmur or Rub
Pulmonary: Clear and Symmetric; Negative Wheezes or Rales
Gastrointestinal: Soft, Non Tender, Non Distended and Normal Bowel Sounds
Skin: Warm, Dry and Rash (generalized excoriations, no erythema, warmth or swelling); Negative Jaundice
Objective Data
Lab Data
Lab Results
05/16/24 06:17
05/16/24 06:17
PT 22.6 Sec (11.4-14.6) H 05/16/24 06:17
INR 1.97 05/16/24 06:17
Estimated Creat Clear 39 ml/min 05/16/24 06:17
Total Bilirubin 2.8 mg/dl (0.2-1.3) H 05/16/24 06:17
AST 253 U/L (17-59) H 05/16/24 06:17
ALT 288 U/L (0-50) H 05/16/24 06:17
Alkaline Phosphatase 72 U/L (38-126) 05/16/24 06:17
Most recent labs reviewed.
Micro Results:
05/15/24 13:37 Blood Parasites Smear - Final
Blood/Venous
--- NOTE | 2024-05-16 18:31 | ITS.CL.CATH ---
[employer] - Catheterization
Cardiac Catheterization
Procedure Report:
CARDIAC CATHETERIZATION REPORT
Date of Procedure: 05/16/24
Referring: Dr. Chato Morales
Indication: severe aortic stenosis, acute systolic heart failure
PROCEDURE:
1. Right heart catheterization.
2. Left heart catheterization
3. Coronary angiography
ACCESS:
6 [place] right radial artery
5 [place] right antecubital vein
CATHETERS:
1. 5 [place] balloon wedge
2. 6 [place] Lv dual lumen catheter
3. 6 [place] JL3.5
4. 6 [place] JR4
HEMODYNAMIC DATA
RA 23 mmHg
RV 73/15 (EDP 23) mmHg
PA 72/39 (mean 51) mmHg
PCWP 33 mmHg
CO/CI 3.3/1.7 L/min/m2
SVR 1619 dsc*-5
PVR 5.5 Wood units
LV 208/21 (EDP 40) mmHg
AO 124/63 (mean 89) mmHg
CORONARY ANGIOGRAPHY
Dominance: right
LM: normal
LAD: gives rise to a moderate caliber high rising D1, large D2, and small D3 before wrapping around the apex. There are mild luminal irregularities.
LCx: gives rise to a large OM1 and small OM2. There are mild luminal irregularities.
RCA: gives rise to a large RDPA and two large RPL branches. There are mild luminal irregularities.
Closure Device: TR band
Radiation dose (mGy): 370.71
DAP (cm2.Gy): 36.4101
Fluoroscopy time (minutes): 5.9
CONCLUSIONS:
1. 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
2. Non-obstructive coronary artery disease in a right dominant system.
RECOMMENDATIONS:
1. Expectant management after cardiac catheterization via right approach
2. Guideline directed medical therapy for non-ischemic cardiomyopathy
3. Work for aortic valve replacement (TAVR vs. SAVR) noting concomitant severe TR
Signed: Amadeo Clement MD, PhD
--- NOTE | 2024-05-16 19:42 | PTCARENOTE ---
Patient received from [employer]orer [employer] at approximately 638pm. Right radial arterial site with air compression band device intact. No active bleeding. Bruising noted under radial device. 8 mls of air remaining in device as per laborer [employer] handoff. Hand
slightly cool to touch. Radial pulse present. Right brachial site with dressing intact and clean/no bleeding noted. Patient instructed to not push off bed with right arm/hand. Patient verbalizes understanding of teaching. Vital signs stable.
[2024-05-16] MEDS: TOPROL XL PO (20:31)
[2024-05-17 03:05] VITALS: BP 95/64
[2024-05-17 06:00] VITALS: BMI 28.3
[2024-05-17 07:22] VITALS: BP 108/62
[2024-05-17 07:29] LABS: % Basophils 0.1 % (0-2); % Immature Granulocytes 0.4 % (0-0.5); % Lymphocytes 8.3 % (20.5-51.1); % Monocytes 12.1 % (1.7-9.3); % Neutrophils 79.1 % (42.2-75.2); Absolute Immature Granulocytes 0.1 10^3/uL (0-0.05); Absolute Monocytes 1.4 10^3/uL (0.1-0.6); Absolute Neutrophils 9.3 10^3/uL (1.4-6.5); Hematocrit 40.1 % (39.0-52.0); Hemoglobin 12.7 g/dL (13.0-18.0); Mean Corp Hgb Conc. 31.7 g/dL (33.0-37.0); Mean Corpuscular Hgb 27.2 pg (27.0-31.0); Mean Corpuscular Volume 85.9 fL (80.0-94.0); Mean Platelet Volume 10.8 fL (7.4-10.4); Nucleated Red Blood Cells % 0.5 % (-); Platelet Count 203 10^3/uL (130-400); Red Blood Cell Count 4.67 10^6/uL (4.70-6.10); Red Cell Dist. Width 14.6 % (11.5-14.5); White Blood Cell Count 11.8 10^3/uL (4.8-10.8)
--- NOTE | 2024-05-17 07:54 | W.PN.CD ---
Today's Communication / Plan
-
continue diuresis
le nyasia wraps
Impression / Plan
-
79 yo male with no significant medical history, but also no recent medical care (approx 16yrs) is admitted with progressive SOB and edema.
# Acute HF,reduced EF and dilated RV:
-NICMY, ? due to severe
-normal coronaries
-Continue IV lasix and diuresis as tolerated, may be limited by low CI in the setting of structural obstruction of severe as, will need intensive monitoring of labs and bp
-GDMT limited by bp now, will focus on diuresis, continue bb
#Severe :
-will need TAVR evaluation--Team aware
#Severe TR:
-RV enlargement
-reassess with diuresis
#PVC's, bigeminy
-continue bb
# Bifascicular block
# Abnl LFT
-Suspect congestion given degree of volume overload, improving with diuresis, continue to monitor
Subjective:
he is just bothered by his le swelling, no sob, lh or cp.
Cath: 05/16/24
HEMODYNAMIC DATA
RA 23 mmHg
RV 73/15 (EDP 23) mmHg
PA 72/39 (mean 51) mmHg
PCWP 33 mmHg
CO/CI 3.3/1.7 L/min/m2
SVR 1619 dsc*-5
PVR 5.5 Wood units
LV 208/21 (EDP 40) mmHg
AO 124/63 (mean 89) mmHg
CORONARY ANGIOGRAPHY
Dominance: right
LM: normal
LAD: gives rise to a moderate caliber high rising D1, large D2, and small D3 before wrapping around the apex. There are mild luminal irregularities.
LCx: gives rise to a large OM1 and small OM2. There are mild luminal irregularities.
RCA: gives rise to a large RDPA and two large RPL branches. There are mild luminal irregularities.
CONCLUSIONS:
1. 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
2. Non-obstructive coronary artery disease in a right dominant system.
TTE 05/15/24: CONCLUSIONS
Moderately reduced left ventricular systolic function. Left ventricular
ejection fraction is 30%.
Global hypokinesis.
Mild/moderate mitral regurgitation. Mild mitral stenosis.
Severe aortic stenosis. Peak/mean gradients across the aortic valve are 60/38
mmHg, and increase to 172/102 mmHg post PVC.
Using an LVOT diameter of 2.0 cm the aortic valve by the Continuity equation is
calculated at 0.8 cm2. Mild/moderate eccentric aortic regurgitation.
Mildly enlarged right ventricular size. Normal right ventricular systolic
function.
Severe tricuspid regurgitation. Severely elevated PASP. Estimated pulmonary
artery pressure of 77 mmHg assuming a right atrial pressure of 15 mmHg.
Ectatic proximal ascending aorta measures 3.9 cm.
Physical Exam
Vital Signs/Labs
Vital Signs
Temp Pulse Resp BP Pulse Ox
97.5 F 79 19 95/64 96
05/17/24 03:05 05/17/24 03:05 05/17/24 03:05 05/17/24 03:05 05/17/24 03:05
05/16/24 05/17/24 05/18/24
06:59 06:59 06:59
Actual Weight 83.036 kg 81.817 kg
05/17/24 06:21
PT 22.6 Sec (11.4-14.6) H 05/16/24 06:17
INR 1.97 05/16/24 06:17
Magnesium 2.2 mg/dl (1.6-2.3) 05/16/24 06:17
Triglycerides 89 mg/dl (10-149) 05/15/24 06:20
LDL Cholesterol, Calc 88 mg/dl 05/15/24 06:20
VLDL Cholesterol, Calc 17 mg/dl (0-30) 05/15/24 06:20
HDL Cholesterol 18 mg/dl 05/15/24 06:20
05/14/24
12:02
Ihc-M-Znafnqyzlhu Pept > 27630
LAB Results
05/14/24
12:02
Troponin I < 0.012
Physical Exam
Constitutional: No acute distress
Cardiovascular: Rhythm & rate is regular, Pedal edema present (3+ pitting in the legs up to abdomen b/l), JVD present (prominant v wave) and Systolic murmur present (harsh systolic murmur in RUSB, 2/6. )
Respiratory: Respiratory effort normal, Lungs clear to auscul., Wheeze Absent, Crackles Absent and Rhonchi Absent
Neuro/Psych: AO x 3
Data Reviewed
-
Date of Service: May 17, 2024
Medical Decision Making: Review of Case with other Provider (Dr Raymond continue diuresis)
EKG: Other (sinus with pvcs in bigeminy)
[2024-05-17 07:56] LABS: ALT (SGPT) 272 U/L (0-50); AST (SGOT) 175 U/L (17-59); Albumin 3.7 g/dl (3.5-5.0); Alkaline Phosphatase 69 U/L (38-126); Blood Urea Nitrogen 78 mg/dl (9-20); Calcium 9.3 mg/dl (8.4-10.2); Carbon Dioxide 24 mmol/L (22-30); Chloride 97 mmol/L (98-107); Estimated Creatinine Clearance 36 ml/min; Glucose 97 mg/dl (70-99); Potassium 5.8 mmol/L (3.5-5.1); Sodium 139 mmol/L (135-145); Total Bilirubin 2.2 mg/dl (0.2-1.3); Total Protein 6.7 g/dl (6.3-8.2); eGFR 46.48
[2024-05-17] MEDS: LASIX 40 MG IV ×2 (08:40→15:52)
[2024-05-17] MEDS: LOW STRENGTH ASPIRIN 81 MG PO (08:41)
[2024-05-17] MEDS: HEPARIN 5000 UNITS SC ×2 (08:41→20:51)
[2024-05-17] MEDS: TOPROL XL 25 MG PO (08:41)
[2024-05-17] MEDS: VIBRAMYCIN 100 MG PO ×2 (08:45→20:51)
--- NOTE | 2024-05-17 11:19 | PN.CDI ---
CDI
- -
CDI:
Physician Documentation Request
Admit Date: 05/14/24 18:15
Dear Doctor Segundo,
Please review the following and provide your response in the progress notes.
Clinical Indicators:
- 05/16 PN 'difficult to ascertain if this is an HUE versus CKD'
Laboratory Tests
05/14/24 05/16/24 05/17/24
21:48 06:17 06:21
Creatinine 1.1 1.4 H 1.5 H
eGFR > 60.00 50.49 46.48
Please clarify which of the following accurately represents the patient's renal status:
HUE on CKD 2
HUE on CKD - unknown stage
Other
Criteria for HUE*
1 Increase in serum creatinine by > or = to 0.3 mg/dL (> or = to 26.5 micromol/L) within 48 hours, OR
2 Increase in serum creatinine to > or = to 1.5 times baseline, which is known or presumed to have occurred within 7 days, OR
3 Urine volume < 0.5 nL/kg/hour for six hours
Stages of Chronic Kidney Disease*
Level Description GFR
G1 Normal or High >90
G2 Mildly decreased 60-89
G3a Mildly to moderately decreased 45-59
G3b Moderately to severely decreased 30-44
G4 Severely decreased 15-29
G5 Kidney failure <15
Use of terms such as suspected, likely, concern for, or probable (associated with a specific diagnosis that is being evaluated, monitored, or treated as if it exists) are acceptable and can be coded in the inpatient setting, when documented at the
time of discharge.
Thank you,
Nicole Lam RN
CDI Specialist
Please use your independent medical judgment in providing your response.
*Source: Kidney Disease: Improving Global Outcomes (KDIGO) 2012
[2024-05-17 11:27] VITALS: BP 116/53
--- NOTE | 2024-05-17 11:40 | W.PN.HOSP.TC ---
Today's Communication/Plan
-
Continue with IV Lasix, trend BMP and I's and O's
Fluid, potassium, sodium restricted diet
Repeat BMP in the afternoon consider temporizing potassium
Plan for TAVR
Continue doxycycline, trend LFTs
Assessment / Plan
Assessment / Plan
#Acute decompensated HFrEF
#Severe aortic stenosis
#Severe pulmonary hypertension with TR
#PVCs
-TTE yesterday showed EF 30% with global hypokinesis, severe aortic stenosis with high gradient and JUDSON 0.8
-Suspect NICM with degree of valvular stenosis though cannot rule out ischemic disease, limited history
-Volume status is improving on Lasix regimen, leg edema better than yesterday; suspect I's/O's not accurate
-Started on beta-deion for GDMT and reduction of PVC burden
-Cardiology is following, warm and wet phenotype
Plan
-Continue with IV Lasix 40 mg twice daily, monitor I's/O's and weight, trend BMP
-Continue with metoprolol succinate 25 mg daily with goal HR <75; additional GDMT as possible
-Start dietary restrictions with 4 g sodium, no added salt and 60 ounce fluid restriction
-Plan for TAVR likely as outpatient
-Monitor on telemetry
#Rash -- right sided extremities and torso, no pruritus; no target lesions
#Acute transaminitis
#Elevated T. bili
-Differential diagnoses include tickborne illness versus congestive hepatopathy
-He does have history of IV drug use and documentation, viral hepatitis serologies sent though results are still pending
-Was recently outdoors trimming a coker when he noticed rash afterwards, Lyme serology and Babesia blood smear pending
-Liver ultrasound yesterday showed mild liver ascites, normal contour without evidence of cirrhosis or fatty infiltration
-Peripheral smear without signs of Babesia; LFTs are relatively improving with IV diuresis and
-ID following, rash seems to be improving
Plan
-Continue with doxycycline regimen
-Follow-up on Lyme serology
-Monitor LFTs daily
-Monitor rash clinically
#Hyperkalemia
-Mild, stable with potassium near 5.8 this morning
-No ECG changes, no symptoms; has been consistently >5
-Trend daily BMP as above
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
-No previous records, unclear what his true creatinine baseline is
-Suspect this is type I cardiorenal syndrome with acute heart failure; on diuretics as above
-Will continue to trend BMP and avoid unnecessary nephrotoxins as possible
DVT prophylaxis: Heparin
Diet: Sodium and fluid restricted
CODE STATUS: Full code
Anticipated Discharge: > 48 hours
Subjective/Interval History
-
Date of Service: May 17, 2024
Seen and examined at the bedside. No acute events overnight. AFVSS this morning, SBP in the low 100s at time of my evaluation
Yesterday he had left and right heart catheter that showed no clinically significant coronary obstructions. Did show evidence of biventricular heart failure, significant pulmonary hypertension related to severe tricuspid regurgitation.
He denies any acute complaints. Leg swelling and rash seem to be improving. Denies chest pain, shortness of breath, fevers or chills, abdomen pain, GI upset, urinary issue, abnormal bleeding or bruising, paresthesias or weakness.
Objective Data
-
Labs:
Laboratory Results
05/17/24 05/17/24
06:21 14:27
WBC 11.8 H
Hgb 12.7 L
Hct 40.1
Plt Count 203
Sodium 139 Pending
Potassium 5.8 H Pending
Chloride 97 L Pending
Carbon Dioxide 24 Pending
BUN 78 H Pending
Creatinine 1.5 H Pending
Glucose 97 Pending
Calcium 9.3 Pending
Total Bilirubin 2.2 H
AST 175 H
ALT 272 H
Alkaline Phosphatase 69
Vital Signs:
Vital Signs
Temp Pulse Resp BP Pulse Ox
98 F 79 20 116/53 93
05/17/24 11:27 05/17/24 11:27 05/17/24 11:27 05/17/24 11:27 05/17/24 11:27
I&O
05/16/24 05/17/24 05/18/24
06:59 06:59 06:59
Intake Total 660 / 660 240 / 240
Output Total 900 / 900 1800 / 1800
Balance -240 / -240 -1560 / -1560
Review of Systems
-
History Source: Patient
All other systems: Reviewed and negative
Physical Exam
-
General: Well Nourished, No Apparent Distress, Comfortable and Conversant
HEENT: Normocephalic, Atraumatic, Moist Mucous Membranes and Anicteric; Negative Good Dentition
Respiratory: Clear to Auscultation and Non Labored Respirations; Negative Wheezes, Rales or Rhonchi
Cardiac: Regular Rhythm, S1/S2, Murmur (3/6 late peaking crescendo decrescendo ANTONIA), JVD and Other (PVCs); Negative Rub or Gallop
GI: Soft, Nontender, Nondistended and Normal Bowel Sounds
Musculoskeletal: No Clubbing, No Cyanosis and Other (2+ bilateral lower extremity)
Skin: Warm, Dry, Rash (Erythematous, excoriated rash over extremities and torso, improving slightly) and Normal Turgor; Negative Jaundice
Neuro: AO x 3, Nonfocal/Grossly Intact and Central Nerve's Intact
Data Reviewed
-
Labs: Labs Reviewed by me, Discussed with Physician and Discussed with Patient
--- NOTE | 2024-05-17 13:21 | CONSULT.STRU ---
Addendum entered and electronically signed by KWAN Victor 05/22/24 13:37:
Procedure Type:�Isolated AVR
PERIOPERATIVE OUTCOME ESTIMATE %
Operative Mortality 5.75%
Morbidity & Mortality 18.8%
Stroke 1.64%
Renal Failure 3.17%
Reoperation 6.32%
Prolonged Ventilation 11.4%
Deep Sternal Wound Infection 0.058%
Long Hospital Stay (>14 days) 7.63%
Short Hospital Stay (<6 days)* 25.2%
Original Note:
Consultation
-
Date/Time Consultation Requested: 05/17/2024
Date/Time Consultation Performed: 05/17/2024
Requesting Provider: Dr. Amadeo Clement
Performing Provider: KWAN Victor
Reason for Consultation: Aortic Stenosis/ TAVR evaluation
Patient History
Physicians
Family Physician: none
Outpatient Machinist Class B: none
Primary Machinist Class B: Dr. Clement
History of Present Illness
Patient is a 79yo male who denies any past medical history but also has not been to a doctor in over 16 years. He states he was trimming some bushes and then noticed some bites on his chest followed by significant LE edema. At the recommendation of
his neighbor he presented to the emergency room. He denies chest pain, palpitations, PND, orthopnea. He takes no medications or OTC supplements. He lives alone and feels overall he has been in good health. He denies fatigue or
lightheadness/dizziness. If is relatively active. He has not received dental care in years and have several teeth that have broken off with roots still in place. His echocardiogram is notable for EF of 30%, AV PG/M/38 but noted to rise to
172/102 post PVC. Patient is noted to be having frequent PVCs. Mild-moderate AI, Mild to moderate MR, mild mitral stenosis, severe TR with PAP 77mmHg. Cardiac cath done yesterday. Severely elevated biventricular filling pressures, severe mixed
pre- and post-capillary pulmonary hypertension, and severely reduced cardiac output. Non-obstructive coronary artery disease in a right dominant system.
,
Reviewed the pathophysiology of aortic stenosis with the patient and his sister. Explained the treatment options of SAVR and TAVR. Explained the TAVR evaluation process including follow up BMP, CT TAVR scan, CT surgery consult and Heart Team
discussion. Provided with script for BMP next week, script and appointment for CT TAVR, Consult appointment with Dr. Hardwick and a copy of the TAVR education booklet with contact information. Allowed for and answered questions.
Past Medical History
Denies any past medical history, has not seen a doctor in at least 16 years.
Past Surgical History
Past Surgical History: Other (Bilateral Cataract Surgery at 62yo)
Dental History
No recent dental care, multiple broken teeth and roots per patient. Made aware he needs to see a dentist as soon as possible to be evaluated.
Family History
Mother: at Age (92)
Father: at Age (90)
Social History
Alcohol: None
Drug: None
Tobacco: Non-Smoker
Personal: Single
Living: Alone
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
Allergies
Allergy/AdvReac Type Severity Reaction Status Date / Time
No Known Allergies Allergy Unverified 05/14/24 11:56
Home Medications
�Medication �Instructions �Recorded �Confirmed �Type
No Meds [No Current Medications] 05/14/24 05/14/24 History
Review of Systems
-
History Source: Patient and Family
General: Reports No Symptoms; Denies Weight Gain, Weight Loss or Fatigue
HEENT: Reports No Symptoms
Respiratory: Reports No Symptoms; Denies DELUCA or Cough
Cardiac: Reports Edema (only recently, prior to this admission)
Abdomen/GI: Reports No Symptoms; Denies Abdominal Pain, Reflux, Indigestion, Nausea or Vomiting
: Reports No Symptoms; Denies Dysuria, Urgency or Hematuria
Musculoskeletal: Reports No Symptoms
Skin: Reports No Symptoms
Neurological: Reports No Symptoms; Denies CVA, TIA, Headaches, Syncope or Dizzy
Vascular: Reports No Symptoms
Physical Exam
Vital Signs
Temp 98 F 05/17/24 11:27
Temp route: Oral 05/17/24 11:27
Pulse 79 05/17/24 11:27
Rhythm: Normal sinus rhythm 05/16/24 19:55
With- Bundle Branch Block Confi, PVC's Monomorphic, PVC's Bigeminy 05/17/24 07:35
Resp Rate 20 05/17/24 11:27
Blood pressure 116/53 05/17/24 11:27
Blood pressure extremity used: Left upper arm 05/17/24 11:27
Position: Sitting 05/17/24 11:27
MAP (cuff-Sukh Monitor) 84 05/14/24 19:04
SaO2 93 05/17/24 11:27
Oxygen Mode of Delivery Room air 05/17/24 11:27
Pulse Ox at Rest 94 05/15/24 14:14
Acceptable pain level during hospitalization? 0 05/14/24 11:54
Can the patient verbally communicate their pain? Yes 05/17/24 07:35
Pain scale ratin 05/17/24 07:35
Actual Weight 81.817 kg 05/17/24 06:00
Body Mass Index (BMI) 28.3 05/17/24 06:00
Sitting- Blood Pressure 107/64 05/15/24 14:14
Sitting- Pulse 51 05/15/24 14:14
Labs
05/17/24 06:21
PT 22.6 Sec (11.4-14.6) H 05/16/24 06:17
Troponin I < 0.012 ng/ml 05/14/24 12:02
Ccm-D-Zznmeilxwhn Pept > 13778 pg/ml 05/14/24 12:02
Diagnostic Studies
Cardiac Catheterization 05/16/2024:
HEMODYNAMIC DATA
RA 23 mmHg
RV 73/15 (EDP 23) mmHg
PA 72/39 (mean 51) mmHg
PCWP 33 mmHg
CO/CI 3.3/1.7 L/min/m2
SVR 1619 dsc*-5
PVR 5.5 Wood units
LV 208/21 (EDP 40) mmHg
AO 124/63 (mean 89) mmHg
CORONARY ANGIOGRAPHY
Dominance: right
LM: normal
LAD: gives rise to a moderate caliber high rising D1, large D2, and small D3 before wrapping around the apex. There are mild luminal irregularities.
LCx: gives rise to a large OM1 and small OM2. There are mild luminal irregularities.
RCA: gives rise to a large RDPA and two large RPL branches. There are mild luminal irregularities.
Closure Device: TR band
Radiation dose (mGy): 370.71
DAP (cm2.Gy): 36.4101
Fluoroscopy time (minutes): 5.9
CONCLUSIONS:
1. 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
2. Non-obstructive coronary artery disease in a right dominant system.
Echocardiogram 05/15/2024:
CONCLUSIONS
Rhythm is sinus with PVC's in bigeminy.
Moderately reduced left ventricular systolic function. Left ventricular
ejection fraction is 30%.
Global hypokinesis.
Mild/moderate mitral regurgitation. Mild mitral stenosis.
Severe aortic stenosis. Peak/mean gradients across the aortic valve are 60/38
mmHg, and increase to 172/102 mmHg post PVC.
Using an LVOT diameter of 2.0 cm the aortic valve by the Continuity equation is
calculated at 0.8 cm2. Mild/moderate eccentric aortic regurgitation.
Mildly enlarged right ventricular size. Normal right ventricular systolic
function.
Severe tricuspid regurgitation. Severely elevated PASP. Estimated pulmonary
artery pressure of 77 mmHg assuming a right atrial pressure of 15 mmHg.
Ectatic proximal ascending aorta measures 3.9 cm.
No prior study available for comparison.
Indications:
CHF
Rhythm: PVCs
Portable Study:
Technical Quality: Fair
Contrast:
BP: 113 / 55
PROCEDURE
A complete Transthoracic Echocardiogram was performed utilizing two-dimensional
evaluation with color flow and spectral Doppler analysis.
FINDINGS
Left Ventricle
Left ventricle is mildly dilated. Mild concentric left ventricular hypertrophy.
Moderately reduced left ventricular systolic function. Left ventricular
ejection fraction is 30%. Global hypokinesis. Diastolic function indeterminate.
Right Ventricle
Mildly enlarged right ventricular size. Normal right ventricular systolic
function.
Left Atrium
Moderately dilated left atrium. Indexed LA volume is moderately abnormal (42-48
mL/m2).
Right Atrium
Severely dilated right atrium.
Mitral Valve
Thickened mitral valve leaflets. Mitral annular calcification. Mild/moderate
mitral regurgitation. Mild mitral stenosis. Mean gradient 4 mmHg,
Aortic Valve
Severely calcified aortic valve with restricted leaflet motion. Severe aortic
stenosis. Peak/mean gradients across the aortic valve are 60/38 mmHg, and
increase to 172/102 mmHg post PVC. Using an LVOT diameter of 2.0 cm the aortic
valve by the Continuity equation is calculated at 0.8 cm2. Mild/moderate
eccentric aortic regurgitation.
Tricuspid Valve
Tricuspid valve normal. Severe tricuspid regurgitation. Estimated pulmonary
artery pressure of 77 mmHg assuming a right atrial pressure of 15 mmHg.
Severely elevated PASP.
Pulmonic Valve
Pulmonic valve normal. Moderate pulmonic regurgitation.
Pericardium\\Pleura
Trivial pericardial effusion.
Aorta
The aortic root is normal in caliber. Ectatic proximal ascending aorta measures
3.9 cm. The aortic arch is normal in caliber.
Other Finding
The IVC is dilated and does not collapse. Interatrial septum is intact with no
evidence of shunting by color flow Doppler.
MEASUREMENTS (Male / Female) Normal Values
2D ECHO
LV Diastolic Diameter PLAX 6.2 cm 4.2 - 5.9 / 3.9 - 5.3 cm
LV Systolic Diameter PLAX 5.0 cm
IVS Diastolic Thickness 1.4 cm 0.6 - 1.0 / 0.6 - 0.9 cm
LVPW Diastolic Thickness 1.4 cm 0.6 - 1.0 / 0.6 - 0.9 cm
LV Relative Wall Thickness 0.5
LVOT Diameter 2.0 cm
LA Systolic Diameter LX 5.0 cm 3.0 - 4.0 / 2.7 - 3.8 cm
LV Ejection Fraction MOD BP 34.9 % >= 55 %
LV Stroke Volume MOD BP 52.4 cm3
LV Cardiac Index MOD BP 1780.1 cm3/min
LV Stroke Volume MOD 4C 72.2 cm3
LV Stroke Volume 4C AL 76.4 cm3
LV Stroke Volume MOD 2C 27.0 cm3
LV Stroke Volume 2C AL 32.9 cm3
LA Area 4C View 26.7 cm2 <= 20 cm2
LA Length 4C 6.9 cm
LA Volume 89.8 cm3 18 - 58 / 22 - 52 cm3
LA Volume Index 42.5 cm3/m2 16 - 34 cm3/m2
RV Diastolic Basal Diameter 2.5 cm 2.0 - 2.8 cm
RV Diastolic Mid Diameter 4.0 cm 2.7 - 3.3 cm
Ascending Aorta Diameter 3.9 cm
Aorta at Sinuses Diameter 3.3 cm
M-MODE
AV Cusp Separation MM 0.3 cm
DOPPLER
AV Peak Velocity 656.0 cm/s
AV Peak Gradient 172.1 mmHg
AV Mean Gradient 102.0 mmHg
AV Velocity Time Integral 89.4 cm
AI Peak Velocity 341.0 cm/s
AI Peak Gradient 46.5 mmHg
AI Pressure Half Time 234.0 ms
LVOT Peak Velocity 68.0 cm/s
LVOT Peak Gradient 1.8 mmHg
LVOT Velocity Time Integral 15.9 cm
LVOT Stroke Volume 50.0 cm3
LVOT Stroke Volume Index 25.0 ml/m2 empty
LVOT Cardiac Index 1696.9 cm3/min\\m2
AV Area Cont Eq vti 0.6 cm2
AV Area Cont Eq pk 0.3 cm2
MV Peak Velocity 136.0 cm/s
MV Peak Gradient 7.4 mmHg
MV Mean Velocity 93.1 cm/s
MV Mean Gradient 4.0 mmHg
MV Area PHT 5.2 cm2
Mitral E Point Velocity 133.0 cm/s
LV E' Lateral Velocity 5.4 cm/s
Mitral E to LV E' Lateral Ratio 24.4
LV E' Septal Velocity 4.3 cm/s
Mitral E to LV E' Septal Ratio 30.6
TR Peak Velocity 393.0 cm/s
TR Peak Gradient 61.8 mmHg
Exam
General: Well Developed, No Apparent Distress and Comfortable
HEENT: Normocephalic and Moist Mucous Membranes
Neck: Trachea Midline
Respiratory: Clear; Negative Wheezes, Crackles, Rhonchi or Accessory Muscle Use
Cardiac: S1/S2, Regular Rhythm and Murmur (Grade III/ systolic)
GI: Soft, Non Tender, Non Distended and Normal Bowel Sounds
Rectal: Deferred by Provider
Skin: Warm and Dry
Neuro: AO x 3 and Nonfocal/Grossly Intact
Extremities: Lower Level Edema (+3-4 pitting edema bilateral lower extremities up to groin)
Psych: Calm
Assessment / Plan
-
Severe Aortic stenosis:
����������� Continue evaluation for TAVR. For now scheduled for OP evaluation but will re-evaluate as needed
����������� BMP 05/24 at [facility] if discharged
����������� CT TAVR scan 06/03/2024 at 0930 at - pending labs
����������� CT surgery consult with Dr. Hardwick 06/11/2024
����������� Heart team discussion at [facility]
Needs dental clearance and expect extensive dental work given broken teeth and lack of dental care
Acute HF,reduced EF and dilated RV:
Possibly due to severe
normal coronaries
Continue IV lasix and diuresis as tolerated - directed by cardiology
Daily weights
Low sodium diet
Data Reviewed
-
EKG: Report Reviewed by me (bifascicular block, High risk for need PPM s/p TAVR)
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
Echo: Report Reviewed by me and Discussed with Physician
Labs: Labs Reviewed by me
Old Records: Reviewed (hospital notes prior to today's consult)
Total Time Spent with Patient (in minutes): 40
[2024-05-17 15:21] VITALS: BP 107/54
--- NOTE | 2024-05-17 17:00 | CM ---
Cardiology involved . Pt for a TAVR.
Remains on IV Lasix.
PCP information given to pt.He has no PCP at this time .
PLAN Home with possible out pt cardiac follow up
[2024-05-17 17:34] LABS: Blood Urea Nitrogen 71 mg/dl (9-20); Calcium 9.4 mg/dl (8.4-10.2); Carbon Dioxide 26 mmol/L (22-30); Chloride 96 mmol/L (98-107); Estimated Creatinine Clearance 39 ml/min; Glucose 114 mg/dl (70-99); Potassium 3.9 mmol/L (3.5-5.1); Sodium 138 mmol/L (135-145); eGFR 50.49
[2024-05-17 19:24] VITALS: BP 101/61
[2024-05-17] MEDS: TOPROL XL PO (22:14)
[2024-05-17 23:31] VITALS: BP 96/61
[2024-05-18 03:19] VITALS: BP 97/64
[2024-05-18 05:49] LABS: % Basophils 0.1 % (0-2); % Immature Granulocytes 0.4 % (0-0.5); % Lymphocytes 6.2 % (20.5-51.1); % Monocytes 9.6 % (1.7-9.3); % Neutrophils 83.7 % (42.2-75.2); Absolute Immature Granulocytes 0.1 10^3/uL (0-0.05); Absolute Lymphocytes 0.7 10^3/uL (1.2-3.4); Absolute Monocytes 1.1 10^3/uL (0.1-0.6); Absolute Neutrophils 9.6 10^3/uL (1.4-6.5); Hematocrit 35.3 % (39.0-52.0); Hemoglobin 11.6 g/dL (13.0-18.0); Mean Corp Hgb Conc. 32.9 g/dL (33.0-37.0); Mean Corpuscular Hgb 27.1 pg (27.0-31.0); Mean Corpuscular Volume 82.5 fL (80.0-94.0); Mean Platelet Volume 10.1 fL (7.4-10.4); Nucleated Red Blood Cells % 0 % (-); Platelet Count 173 10^3/uL (130-400); Red Blood Cell Count 4.28 10^6/uL (4.70-6.10); Red Cell Dist. Width 14.5 % (11.5-14.5); White Blood Cell Count 11.4 10^3/uL (4.8-10.8)
[2024-05-18 06:13] VITALS: BMI 27.7
[2024-05-18 06:16] LABS: ALT (SGPT) 212 U/L (0-50); AST (SGOT) 109 U/L (17-59); Albumin 3.5 g/dl (3.5-5.0); Alkaline Phosphatase 68 U/L (38-126); Blood Urea Nitrogen 70 mg/dl (9-20); Calcium 8.8 mg/dl (8.4-10.2); Carbon Dioxide 33 mmol/L (22-30); Chloride 93 mmol/L (98-107); Estimated Creatinine Clearance 42 ml/min; Glucose 82 mg/dl (70-99); Magnesium 1.9 mg/dl (1.6-2.3); Potassium 3.3 mmol/L (3.5-5.1); Sodium 139 mmol/L (135-145); Total Bilirubin 2.2 mg/dl (0.2-1.3); Total Protein 6.4 g/dl (6.3-8.2); eGFR 55.19
[2024-05-18 08:21] VITALS: BP 97/65
[2024-05-18] MEDS: VIBRAMYCIN 100 MG PO ×2 (08:48→20:59)
[2024-05-18] MEDS: TOPROL XL 25 MG PO (08:48)
[2024-05-18] MEDS: LOW STRENGTH ASPIRIN 81 MG PO (08:48)
[2024-05-18] MEDS: LASIX 40 MG IV ×2 (08:49→17:42)
[2024-05-18] MEDS: HEPARIN 5000 UNITS SC ×2 (08:50→20:59)
[2024-05-18] MEDS: KCL ELIXIR 40 MEQ PO ×2 (09:28→20:59)
--- NOTE | 2024-05-18 10:55 | W.PN.HOSP.TC ---
Today's Communication/Plan
-
Continue IV Lasix and trend BMP/I's and O's
TAVR planning
GDMT as hemodynamics allow
Assessment / Plan
Assessment / Plan
#Acute decompensated HFrEF
#Severe aortic stenosis
#Severe pulmonary hypertension with TR
#PVCs
-TTE yesterday showed EF 30% with global hypokinesis, severe aortic stenosis with high gradient and JUDSON 0.8
-Suspect NICM with degree of valvular stenosis though cannot rule out ischemic disease, limited history
-Volume status is improving on Lasix regimen, leg edema better than yesterday; suspect I's/O's not accurate
-Started on beta-deion for GDMT and reduction of PVC burden; limited by borderline hypotension
-Outpatient TAVR workup: BMP 05/24, CT TAVR 06/03, CT surgery eval 06/11, dental clearance prior to TAVR
-Renal function starting to improve after multiple days of IV Lasix
-Cardiology is following, warm and wet phenotype
Plan
-Continue with IV Lasix 40 mg twice daily, monitor I's/O's and weight, trend BMP
-Continue with metoprolol succinate 25 mg daily with goal HR <75; additional GDMT as possible
-Start dietary restrictions with 4 g sodium, no added salt and 60 ounce fluid restriction
-Plan for TAVR as outpatient with further workup as above
-Monitor on telemetry
#Rash -- right sided extremities and torso, no pruritus; no target lesions
#Acute transaminitis
#Elevated T. bili
-Differential diagnoses include tickborne illness versus congestive hepatopathy
-He does have history of IV drug use and documentation, viral hepatitis serologies sent though results are still pending
-Was recently outdoors trimming a coker when he noticed rash afterwards, Lyme serology and Babesia blood smear pending
-Liver ultrasound yesterday showed mild liver ascites, normal contour without evidence of cirrhosis or fatty infiltration
-Peripheral smear without signs of Babesia; LFTs are relatively improving with IV diuresis and
-ID following, rash seems to be improving, Lyme serology still pending
Plan
-Continue with doxycycline regimen
-Follow-up on Lyme serology
-Monitor LFTs daily
-Monitor rash clinically
#Hypokalemia
-Secondary to aggressive IV diuresis, potassium this morning was 3.3
-Ordered potassium chloride elixir 40 mill equivalents x 2 for
-Continue to monitor repeat BMP
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
-No previous records, unclear what his true creatinine baseline is
-Suspect this is type I cardiorenal syndrome with acute heart failure; on diuretics as above
-Renal function starting to improve now with IV diuresis
-Trend daily BMP as above
DVT prophylaxis: Heparin
Diet: Sodium and fluid restricted
CODE STATUS: Full code
Anticipated Discharge: > 48 hours
Subjective/Interval History
-
Date of Service: May 18, 2024
Seen and examined at the bedside. No acute events overnight. AFVSS this morning.
Renal function started to improve following multiple days of IV Lasix, suspect further improvement with more Lasix. Per CT surgery has additional TAVR workup as an outpatient will require the following:
-Repeat BMP on 05/24
-CT TAVR study 06/03 at 9:30 AM at [facility]
-CT surgery consult with Dr. Hardwick on 06/11/2024
-Will need dental clearance prior to TAVR
He denies any acute complaints including chest pain, shortness of breath, fevers or chills, GI upset, urinary issues, abnormal bleeding or bruising, paresthesias or weakness.
Objective Data
-
Labs:
Laboratory Results
05/18/24
05:15
WBC 11.4 H
Hgb 11.6 L
Hct 35.3 L
Plt Count 173
Sodium 139
Potassium 3.3 L
Chloride 93 L
Carbon Dioxide 33 H
BUN 70 H
Creatinine 1.3
Glucose 82
Calcium 8.8
Total Bilirubin 2.2 H
AST 109 H
ALT 212 H
Alkaline Phosphatase 68
Vital Signs:
Vital Signs
Temp Pulse Resp BP Pulse Ox
97.5 F 80 18 97/65 96
05/18/24 08:21 05/18/24 08:49 05/18/24 08:21 05/18/24 08:49 05/18/24 08:21
I&O
05/17/24 05/18/24 05/19/24
06:59 06:59 06:59
Intake Total 240 / 240 360 / 360
Output Total 1800 / 1800 2675 / 2675
Balance -1560 / -1560 -2315 / -2315
Review of Systems
-
History Source: Patient
All other systems: Reviewed and negative
Physical Exam
-
General: Well Nourished, No Apparent Distress and Comfortable
HEENT: Normocephalic, Atraumatic, Moist Mucous Membranes and Anicteric; Negative Good Dentition (Poor dentition)
Respiratory: Clear to Auscultation and Non Labored Respirations; Negative Wheezes, Rales, Rhonchi or Accessory Resp Muscle Use
Cardiac: Regular Rhythm, S1/S2, Murmur (3/6, late peaking crescendo decrescendo ANTONIA), JVD and Other (Nondelayed carotid upstroke); Negative Rub or Gallop
GI: Soft, Nontender, Nondistended and Normal Bowel Sounds
Musculoskeletal: No Clubbing, No Cyanosis, Normal Gait & Station and Other (2+ pitting edema to lower extremities)
Skin: Warm, Dry, Rash (Excoriated, erythematous punctate lesions over extremities and torso; improving) and Normal Turgor; Negative Jaundice
Neuro: AO x 3, Nonfocal/Grossly Intact and Central Nerve's Intact
Data Reviewed
-
Labs: Labs Reviewed by me and Discussed with Patient
[2024-05-18 11:28] VITALS: BP 100/59
--- NOTE | 2024-05-18 11:45 | W.PN.ID1 ---
Date of Service
Date of Service: May 18, 2024
Today's Communication
See below
Assessment / Plan
Acute Transaminitis -suspect hepatic congestion from severe CHF
Elevated Tbili
- abd US without obstruction or cirrhosis, anasarca is noted
- check for viral hepatitis: A/B/C negative
- minimal, transient hyponatremia and plt normal
- acute lyme serologies sent, history is somewhat suggestive of a tick born infection
- babesia smear negative
- trial of doxycycline (d4)
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
Severe and TR: AVR evaluation in progress
Chief Complaint
-: Other (rash, transaminitis)
Subjective / Review of Systems
No acute complaints today.
Vital Signs / Physical Exam
Vital Signs
Vital Signs
Temp Pulse Resp BP Pulse Ox
99.1 F 85 18 100/59 95
05/18/24 11:28 05/18/24 11:28 05/18/24 11:28 05/18/24 11:28 05/18/24 11:28
Physical Exam
Constitutional: No Acute Distress and Comfortable
Cardiovascular: Regular Rate and S1/S2; Negative Murmur or Rub
Pulmonary: Clear and Symmetric; Negative Wheezes or Rales
Gastrointestinal: Soft, Non Tender and Non Distended
Extremities: Edema (BLE 3+)
Skin: Rash (generalized excoriations, no erythema, warmth or swelling); Negative Jaundice
Neurological: AO x 3
Objective Data
Lab Data
Lab Results
05/18/24 05:15
05/18/24 05:15
PT 22.6 Sec (11.4-14.6) H 05/16/24 06:17
INR 1.97 05/16/24 06:17
Estimated Creat Clear 42 ml/min 05/18/24 05:15
Total Bilirubin 2.2 mg/dl (0.2-1.3) H 05/18/24 05:15
AST 109 U/L (17-59) H 05/18/24 05:15
ALT 212 U/L (0-50) H 05/18/24 05:15
Alkaline Phosphatase 68 U/L (38-126) 05/18/24 05:15
Most recent labs reviewed.
Micro Results:
05/15/24 13:37 Blood Parasites Smear - Final
Blood/Venous
--- NOTE | 2024-05-18 15:00 | W.PN.CD ---
Today's Communication / Plan
-
continue IV lasix
increase Toprol XL to 50mg bid
Impression / Plan
-
79 yo male with no significant medical history, but also no recent medical care (approx 16yrs) is admitted with progressive SOB and edema.
# Acute HF, reduced EF and dilated RV:
-NICMY, ? due to severe
-normal coronaries
-Continue IV lasix and diuresis as tolerated, may be limited by low CI in the setting of structural obstruction of severe as, will need intensive monitoring of labs and bp
-GDMT limited by BP now, will focus on diuresis
-Toprol XL 50mg bid may be max tolerated
#Severe :
-undergoing TAVR evaluation
#Severe TR:
-RV enlargement
-reassess with diuresis
#PVC's, bigeminy, brief SVT
-continue Toprol XL
# Bifascicular block
-stable
# Abnl LFT
-Suspect congestion given degree of volume overload, improving with diuresis, continue to monitor
Subjective:
SOB better. Edema slowly improving
Cath: 05/16/24
HEMODYNAMIC DATA
RA 23 mmHg
RV 73/15 (EDP 23) mmHg
PA 72/39 (mean 51) mmHg
PCWP 33 mmHg
CO/CI 3.3/1.7 L/min/m2
SVR 1619 dsc*-5
PVR 5.5 Wood units
LV 208/21 (EDP 40) mmHg
AO 124/63 (mean 89) mmHg
CORONARY ANGIOGRAPHY
Dominance: right
LM: normal
LAD: gives rise to a moderate caliber high rising D1, large D2, and small D3 before wrapping around the apex. There are mild luminal irregularities.
LCx: gives rise to a large OM1 and small OM2. There are mild luminal irregularities.
RCA: gives rise to a large RDPA and two large RPL branches. There are mild luminal irregularities.
CONCLUSIONS:
1. 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
2. Non-obstructive coronary artery disease in a right dominant system.
TTE 05/15/24: CONCLUSIONS
Moderately reduced left ventricular systolic function. Left ventricular
ejection fraction is 30%.
Global hypokinesis.
Mild/moderate mitral regurgitation. Mild mitral stenosis.
Severe aortic stenosis. Peak/mean gradients across the aortic valve are 60/38
mmHg, and increase to 172/102 mmHg post PVC.
Using an LVOT diameter of 2.0 cm the aortic valve by the Continuity equation is
calculated at 0.8 cm2. Mild/moderate eccentric aortic regurgitation.
Mildly enlarged right ventricular size. Normal right ventricular systolic
function.
Severe tricuspid regurgitation. Severely elevated PASP. Estimated pulmonary
artery pressure of 77 mmHg assuming a right atrial pressure of 15 mmHg.
Ectatic proximal ascending aorta measures 3.9 cm.
Physical Exam
Vital Signs/Labs
Vital Signs
Temp Pulse Resp BP Pulse Ox
99.1 F 85 18 100/59 95
05/18/24 11:28 05/18/24 11:28 05/18/24 11:28 05/18/24 11:28 05/18/24 14:33
05/17/24 05/18/24 05/19/24
06:59 06:59 06:59
Actual Weight 81.817 kg 80.087 kg
05/18/24 05:15
05/18/24 05:15
PT 22.6 Sec (11.4-14.6) H 05/16/24 06:17
INR 1.97 05/16/24 06:17
Magnesium 1.9 mg/dl (1.6-2.3) 05/18/24 05:15
Triglycerides 89 mg/dl (10-149) 05/15/24 06:20
LDL Cholesterol, Calc 88 mg/dl 05/15/24 06:20
VLDL Cholesterol, Calc 17 mg/dl (0-30) 05/15/24 06:20
HDL Cholesterol 18 mg/dl 05/15/24 06:20
05/14/24
12:02
Obj-Q-Oibuditxllv Pept > 14212
Physical Exam
Constitutional: No acute distress
EENT: Moist mucous membranes
Cardiovascular: Rhythm & rate is regular, Pedal edema present, JVD present and Systolic murmur present
Respiratory: Respiratory effort normal and Lungs clear to auscul.
Neuro/Psych: AO x 3
Data Reviewed
-
Date of Service: May 18, 2024
EKG: Other (Tele: NSR 80s-90s, PVC's, brief SVT)
Labs: Labs Reviewed by me
[2024-05-18 16:42] VITALS: BP 98/64
[2024-05-18 19:32] VITALS: BP 116/65
[2024-05-18] MEDS: TOPROL XL 50 MG PO (20:59)
[2024-05-18 23:30] VITALS: BP 109/58
[2024-05-19 04:44] VITALS: BMI 27.6
[2024-05-19 05:27] LABS: % Basophils 0.1 % (0-2); % Immature Granulocytes 0.5 % (0-0.5); % Lymphocytes 2.6 % (20.5-51.1); % Neutrophils 84.8 % (42.2-75.2); Absolute Immature Granulocytes 0.1 10^3/uL (0-0.05); Absolute Lymphocytes 0.2 10^3/uL (1.2-3.4); Absolute Monocytes 1.1 10^3/uL (0.1-0.6); Absolute Neutrophils 7.8 10^3/uL (1.4-6.5); Hematocrit 35.5 % (39.0-52.0); Hemoglobin 12.1 g/dL (13.0-18.0); Mean Corp Hgb Conc. 34.1 g/dL (33.0-37.0); Mean Corpuscular Hgb 28.5 pg (27.0-31.0); Mean Corpuscular Volume 83.5 fL (80.0-94.0); Mean Platelet Volume 9.5 fL (7.4-10.4); Nucleated Red Blood Cells % 0 % (-); Platelet Count 131 10^3/uL (130-400); Red Blood Cell Count 4.25 10^6/uL (4.70-6.10); Red Cell Dist. Width 14.5 % (11.5-14.5); White Blood Cell Count 9.2 10^3/uL (4.8-10.8)
[2024-05-19 05:56] LABS: ALT (SGPT) 170 U/L (0-50); AST (SGOT) 114 U/L (17-59); Albumin 3.6 g/dl (3.5-5.0); Alkaline Phosphatase 65 U/L (38-126); Blood Urea Nitrogen 57 mg/dl (9-20); Calcium 8.9 mg/dl (8.4-10.2); Carbon Dioxide 32 mmol/L (22-30); Chloride 96 mmol/L (98-107); Direct Bilirubin 1.1 mg/dl (0.0-0.4); Estimated Creatinine Clearance 54 ml/min; Glucose 109 mg/dl (70-99); Magnesium 1.7 mg/dl (1.6-2.3); Potassium 4.3 mmol/L (3.5-5.1); Sodium 138 mmol/L (135-145); Total Bilirubin 2.2 mg/dl (0.2-1.3); Total Protein 6.4 g/dl (6.3-8.2); eGFR > 60.00
[2024-05-19 07:00] VITALS: BP 99/68
[2024-05-19] MEDS: VIBRAMYCIN 100 MG PO ×2 (08:18→21:13)
[2024-05-19] MEDS: HEPARIN 5000 UNITS SC ×2 (08:19→21:12)
[2024-05-19] MEDS: LASIX 40 MG IV ×2 (08:19→15:34)
[2024-05-19] MEDS: TOPROL XL 50 MG PO ×2 (08:19→21:12)
[2024-05-19] MEDS: LOW STRENGTH ASPIRIN 81 MG PO (08:19)
[2024-05-19 11:00] VITALS: BP 84/53
--- NOTE | 2024-05-19 11:06 | W.PN.HOSP.TC ---
Today's Communication/Plan
-
Continue IV Lasix 40 mg twice daily, I's/O's, dietary restrictions
Continue with empiric doxycycline, day 5
Trend daily BMP and LFTs
Assessment / Plan
Assessment / Plan
#Acute decompensated HFrEF
#Severe aortic stenosis
#Severe pulmonary hypertension with TR
#PVCs
-TTE yesterday showed EF 30% with global hypokinesis, severe aortic stenosis with high gradient and JUDSON 0.8
-Suspect NICM with degree of valvular stenosis though cannot rule out ischemic disease, limited history
-Volume status is improving on Lasix regimen, leg edema better than yesterday; suspect I's/O's not accurate
-Started on beta-deion for GDMT and reduction of PVC burden; limited by borderline hypotension
-Outpatient TAVR workup: BMP 05/24, CT TAVR 06/03, CT surgery eval 06/11, dental clearance prior to TAVR
-Renal function starting to improve after multiple days of IV Lasix
-Cardiology is following, warm and wet phenotype
Plan
-Continue with IV Lasix 40 mg twice daily, monitor I's/O's and weight, trend BMP
-Continue with metoprolol succinate 50 mg daily with goal HR <75; additional GDMT as possible
-Start dietary restrictions with 4 g sodium, no added salt and 60 ounce fluid restriction
-Plan for TAVR as outpatient with further workup as above
-Monitor on telemetry
#Rash -- right sided extremities and torso, no pruritus; no target lesions
#Acute transaminitis
#Elevated T. bili
-Differential diagnoses include tickborne illness versus congestive hepatopathy
-He does have history of IV drug use and documentation, viral hepatitis serologies sent though results are still pending
-Was recently outdoors trimming a coker when he noticed rash afterwards, Lyme serology and Babesia blood smear pending
-Liver ultrasound yesterday showed mild liver ascites, normal contour without evidence of cirrhosis or fatty infiltration
-Peripheral smear without signs of Babesia; LFTs are relatively improving with IV diuresis and
-ID following, rash seems to be improving, Lyme serology still pending
Plan
-Continue with doxycycline regimen
-Follow-up on Lyme serology
-Monitor LFTs daily
-Monitor rash clinically
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
-No previous records, unclear what his true creatinine baseline is
-Suspect this is type I cardiorenal syndrome with acute heart failure; on diuretics as above
-Renal function starting to improve now with IV diuresis
-Trend daily BMP as above
DVT prophylaxis: Heparin
Diet: Sodium and fluid restricted
CODE STATUS: Full code
Anticipated Discharge: > 48 hours
Subjective/Interval History
-
Date of Service: May 19, 2024
Seen and examined at the bedside. No acute events overnight. AFVSS this morning.
He was ambulating around the room upon my evaluation. States he is feeling well. Renal function continued to improve on IV diuretics. Rash is stable to improving
He denies new acute complaints including chest pain, shortness of breath, lightheadedness, GI upset, urinary issue, abnormal bleeding or bruising, paresthesias or weakness.
Objective Data
-
Labs:
Laboratory Results
05/19/24
05:11
WBC 9.2
Hgb 12.1 L
Hct 35.5 L
Plt Count 131 D
Sodium 138
Potassium 4.3 D
Chloride 96 L
Carbon Dioxide 32 H
BUN 57 H
Creatinine 1.0
Glucose 109 H
Calcium 8.9
Total Bilirubin 2.2 H
AST 114 H
ALT 170 H
Alkaline Phosphatase 65
Vital Signs:
Vital Signs
Temp Pulse Resp BP Pulse Ox
98.1 F 74 16 99/68 97
05/19/24 07:00 05/19/24 07:00 05/19/24 07:00 05/19/24 07:00 05/19/24 08:10
I&O
05/18/24 05/19/24 05/20/24
06:59 06:59 06:59
Intake Total 360 / 360 900 / 900
Output Total 2675 / 2675 1000 / 1000
Balance -2315 / -2315 -100 / -100
Review of Systems
-
History Source: Patient
All other systems: Reviewed and negative
Physical Exam
-
General: Well Nourished, No Apparent Distress and Comfortable
HEENT: Normocephalic, Atraumatic, Moist Mucous Membranes and Anicteric
Respiratory: Clear to Auscultation and Non Labored Respirations; Negative Wheezes, Rales or Rhonchi
Cardiac: Regular Rhythm, S1/S2, Murmur and JVD; Negative Rub or Gallop
GI: Soft, Nontender, Nondistended and Normal Bowel Sounds
Musculoskeletal: No Clubbing, No Cyanosis and Other (2+ lower extremity edema bilaterally)
Skin: Warm, Dry and Normal Turgor; Negative Rash or Jaundice
Neuro: AO x 3, Nonfocal/Grossly Intact and Central Nerve's Intact
Psych: Calm
Data Reviewed
-
Labs: Labs Reviewed by me and Discussed with Patient
--- NOTE | 2024-05-19 11:23 | CM ---
Patient seen at bedside, patient stated he does not want VN and plan is for him to go home. Patient with no concerns at this time. CM will continue to follow for discharge planning needs.
Plan; home with no needs vs home with VN pending patient acceptance
--- NOTE | 2024-05-19 12:31 | PTCARENOTE ---
Noon BP 84/53. Patient sitting on side of bed, asymptomatic. Dr Morales and Dr Raymond made aware. No new orders given. Will continue to monitor.
[2024-05-19 13:48] VITALS: BP 83/55
[2024-05-19 15:00] VITALS: BP 99/57
--- NOTE | 2024-05-19 17:21 | W.PN.CD ---
Today's Communication / Plan
-
continue IV lasix, and assess to transition to PO lasix tomorrow
Impression / Plan
-
79 yo male with no significant medical history, but also no recent medical care (approx 16yrs) is admitted with progressive SOB and edema.
# Acute HF, reduced EF and dilated RV:
-NICMY, ? due to severe
-normal coronaries
-Continue IV lasix and diuresis as tolerated, may be limited by low CI in the setting of structural obstruction of severe , will need intensive monitoring of labs and bp
-GDMT limited by BP now, will focus on diuresis
-Toprol XL 50mg bid may be max tolerated
#Severe :
-undergoing TAVR evaluation
#Severe TR:
-RV enlargement
-reassess with diuresis
#PVC's, bigeminy, brief SVT
-continue Toprol XL
# Bifascicular block
-stable
# Abnl LFT
-Suspect congestion given degree of volume overload, improving with diuresis, continue to monitor
Subjective:
SOB better. Edema slowly improving
Cath: 05/16/24
HEMODYNAMIC DATA
RA 23 mmHg
RV 73/15 (EDP 23) mmHg
PA 72/39 (mean 51) mmHg
PCWP 33 mmHg
CO/CI 3.3/1.7 L/min/m2
SVR 1619 dsc*-5
PVR 5.5 Wood units
LV 208/21 (EDP 40) mmHg
AO 124/63 (mean 89) mmHg
CORONARY ANGIOGRAPHY
Dominance: right
LM: normal
LAD: gives rise to a moderate caliber high rising D1, large D2, and small D3 before wrapping around the apex. There are mild luminal irregularities.
LCx: gives rise to a large OM1 and small OM2. There are mild luminal irregularities.
RCA: gives rise to a large RDPA and two large RPL branches. There are mild luminal irregularities.
CONCLUSIONS:
1. 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
2. Non-obstructive coronary artery disease in a right dominant system.
TTE 05/15/24: CONCLUSIONS
Moderately reduced left ventricular systolic function. Left ventricular
ejection fraction is 30%.
Global hypokinesis.
Mild/moderate mitral regurgitation. Mild mitral stenosis.
Severe aortic stenosis. Peak/mean gradients across the aortic valve are 60/38
mmHg, and increase to 172/102 mmHg post PVC.
Using an LVOT diameter of 2.0 cm the aortic valve by the Continuity equation is
calculated at 0.8 cm2. Mild/moderate eccentric aortic regurgitation.
Mildly enlarged right ventricular size. Normal right ventricular systolic
function.
Severe tricuspid regurgitation. Severely elevated PASP. Estimated pulmonary
artery pressure of 77 mmHg assuming a right atrial pressure of 15 mmHg.
Ectatic proximal ascending aorta measures 3.9 cm.
Physical Exam
Vital Signs/Labs
Vital Signs
Temp Pulse Resp BP Pulse Ox
98.6 F 62 16 99/57 96
05/19/24 15:00 05/19/24 15:00 05/19/24 15:00 05/19/24 15:00 05/19/24 15:00
05/18/24 05/19/24 05/20/24
06:59 06:59 06:59
Actual Weight 80.087 kg 79.889 kg
05/19/24 05:11
05/19/24 05:11
PT 22.6 Sec (11.4-14.6) H 05/16/24 06:17
INR 1.97 05/16/24 06:17
Magnesium 1.7 mg/dl (1.6-2.3) 05/19/24 05:11
Triglycerides 89 mg/dl (10-149) 05/15/24 06:20
LDL Cholesterol, Calc 88 mg/dl 05/15/24 06:20
VLDL Cholesterol, Calc 17 mg/dl (0-30) 05/15/24 06:20
HDL Cholesterol 18 mg/dl 05/15/24 06:20
05/14/24
12:02
[id number] Pept > [id number]
Physical Exam
Constitutional: No acute distress and Comfortable
EENT: Moist mucous membranes
Cardiovascular: Rhythm & rate is regular, Pedal edema present, JVD present and Systolic murmur present
Respiratory: Respiratory effort normal and Lungs clear to auscul.
Neuro/Psych: AO x 3
Data Reviewed
-
Date of Service: May 19, 2024
EKG: Other (Tele: NSR 60s-70s, PVC's)
Labs: Labs Reviewed by me
[2024-05-19 19:17] VITALS: BP 99/53
[2024-05-19 23:30] VITALS: BP 77/51
[2024-05-20] VITALS (8 sets, daily range): BP systolic 85–101; BP diastolic 49–79; PULSE 71; O2SAT 95; BMI 27.5
--- NOTE | 2024-05-20 08:03 | W.PN.CD ---
Today's Communication / Plan
-
Hold metoprolol this morning.
Reduce daily metoprolol to 25 mg.
Give furosemide this morning and monitor response.
Continue TAVR evaluation.
Impression / Plan
-
Impression/Plan: 79 yo male with no recent medical care (approx 16yrs) is admitted with HFrEF and rash/transaminitis concerning for a tick-borne illness.
#Acute, non-ischemic biventricular HFrEF
-Improving but relative hypotension. Likely due to severe/critical aortic valve stenosis.
-Hold morning metoprolol and decrease daily metoprolol to 25 mg.
-Continue IV lasix and diuresis as tolerated, may be limited by low CI in the setting of fixed structural obstruction of severe , will need intensive monitoring of labs and bp.
-GDMT limited by BP. Still visibly volume overloaded. Will focus on diuresis. We will give furosemide this morning and monitor.
#Severe :
-New diagnosis but chronic.
-Undergoing TAVR evaluation.
-Ideally, this will be concluded as an outpatient after he is compensated from HFrEF.
-Consider inpatient evaluation/TAVR if compensation is simply not possible due to hypotension.
#Severe TR:
-New diagnosis.
-RV enlargement likely leading to functional TR.
-Reassess with diuresis.
#PVC's, bigeminy, brief SVT
-New diagnosis.
-Continue metoprolol as above.
#Bifascicular block
-New diagnosis, but stable.
#Transaminitis
-New diagnosis.
-Hep A/B/C negative.
-Suspect congestion given degree of volume overload.
-Improving with diuresis.
-ID involved. Tick borne titers pending (lyme, babesia smear negative). Empiric course of doxycycline.
Subjective/Interval History:
Metoprolol increased yesterday to 50 mg BID.
Mildly hypotensive yesterday around noon (84/53), again overnight (77/51 @ 23:30) which continued this morning, now stabilized.
Weight down to 79.65 kg (from 83.66 kg).
SaO2 92% on room air.
WBC has normalized.
INR 1.97 (in the absence of VKA).
BUN/Cr falling with diuresis.
DATA:
Cath: 05/16/24
HEMODYNAMIC DATA
RA 23 mmHg
RV 73/15 (EDP 23) mmHg
PA 72/39 (mean 51) mmHg
PCWP 33 mmHg
CO/CI 3.3/1.7 L/min/m2
SVR 1619 dsc*-5
PVR 5.5 Wood units
LV 208/21 (EDP 40) mmHg
AO 124/63 (mean 89) mmHg
CORONARY ANGIOGRAPHY
Dominance: right
LM: normal
LAD: gives rise to a moderate caliber high rising D1, large D2, and small D3 before wrapping around the apex. There are mild luminal irregularities.
LCx: gives rise to a large OM1 and small OM2. There are mild luminal irregularities.
RCA: gives rise to a large RDPA and two large RPL branches. There are mild luminal irregularities.
CONCLUSIONS:
1. 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
2. Non-obstructive coronary artery disease in a right dominant system.
TTE, 05/15/24:
CONCLUSIONS
Moderately reduced left ventricular systolic function. Left ventricular
ejection fraction is 30%.
Global hypokinesis.
Mild/moderate mitral regurgitation. Mild mitral stenosis.
Severe aortic stenosis. Peak/mean gradients across the aortic valve are 60/38
mmHg, and increase to 172/102 mmHg post PVC.
Using an LVOT diameter of 2.0 cm the aortic valve by the Continuity equation is
calculated at 0.8 cm2. Mild/moderate eccentric aortic regurgitation.
Mildly enlarged right ventricular size. Normal right ventricular systolic
function.
Severe tricuspid regurgitation. Severely elevated PASP. Estimated pulmonary
artery pressure of 77 mmHg assuming a right atrial pressure of 15 mmHg.
Ectatic proximal ascending aorta measures 3.9 cm.
Physical Exam
Vital Signs/Labs
Vital Signs
Temp Pulse Resp BP Pulse Ox
37.1 C 67 22 87/49 92
05/20/24 03:00 05/20/24 03:00 05/20/24 03:00 05/20/24 03:00 05/20/24 03:00
05/18/24 05/19/24 05/20/24
11:59 11:59 11:59
Actual Weight 80.087 kg 79.889 kg 79.651 kg
PT 22.6 Sec (11.4-14.6) H 05/16/24 06:17
INR 1.97 05/16/24 06:17
Magnesium 1.7 mg/dl (1.6-2.3) 05/19/24 05:11
Triglycerides 89 mg/dl (10-149) 05/15/24 06:20
LDL Cholesterol, Calc 88 mg/dl 05/15/24 06:20
VLDL Cholesterol, Calc 17 mg/dl (0-30) 05/15/24 06:20
HDL Cholesterol 18 mg/dl 05/15/24 06:20
05/14/24
12:02
[id number] Pept > [id number]
Physical Exam
Constitutional: No acute distress and Comfortable
EENT: Anicteric and Moist mucous membranes
Cardiovascular: Rhythm & rate is regular, Diastolic murmur absent, Pedal edema present, JVD present and Systolic murmur present
Respiratory: Respiratory effort normal, Lungs clear to auscul., Wheeze Absent, Crackles Absent and Rhonchi Absent
GI: Soft, Distention absent, Flat, Non tender and Normal bowel sounds
Neuro/Psych: AO x 3
Other: Cath Site (Right radial access site is C/D/I.)
Data Reviewed
-
Date of Service: May 20, 2024
Medical Decision Making: Reviewed Test Results, Independent Historian Assessment and Test Interpretation
EKG: Tracing Personally Visualized and interpreted and Report Reviewed by me
Echo: Tracing Personally Visualized and interpreted and Report Reviewed by me
X-Ray/CT/US/MRI/NUC/PET: Image Personally Visualized and interpreted and Report Reviewed by me
Medical Tests (PFT, Pathology etc): Image Personally Visualized and interpreted and Report Reviewed by me
Labs: Labs Reviewed by me
Old Records: Reviewed
[2024-05-20] MEDS: TOPROL XL PO (08:36)
[2024-05-20] MEDS: LASIX IV (08:36)
--- NOTE | 2024-05-20 08:37 | PTCARENOTE ---
BP 92/51 with hypotension noted previously as well. D/W Dr. Mills. Hold BB and Diuretic this AM
[2024-05-20] MEDS: LOW STRENGTH ASPIRIN 81 MG PO (08:39)
[2024-05-20] MEDS: VIBRAMYCIN 100 MG PO (08:39)
[2024-05-20] MEDS: HEPARIN 5000 UNITS SC (08:39)
--- NOTE | 2024-05-20 09:20 | PTCARENOTE ---
clarification from Dr. Mills: only hold toprolol this AM
[2024-05-20] MEDS: LASIX 40 MG IV ×2 (09:21→16:24)
[2024-05-20 09:33] LABS: ALT (SGPT) 149 U/L (0-50); AST (SGOT) 117 U/L (17-59); Albumin 3.4 g/dl (3.5-5.0); Alkaline Phosphatase 65 U/L (38-126); Blood Urea Nitrogen 64 mg/dl (9-20); Calcium 9.2 mg/dl (8.4-10.2); Carbon Dioxide 22 mmol/L (22-30); Chloride 94 mmol/L (98-107); Estimated Creatinine Clearance 45 ml/min; Glucose 98 mg/dl (70-99); Magnesium 1.8 mg/dl (1.6-2.3); Potassium 3.9 mmol/L (3.5-5.1); Sodium 135 mmol/L (135-145); Total Bilirubin 1.8 mg/dl (0.2-1.3); Total Protein 6.2 g/dl (6.3-8.2); eGFR > 60.00
[2024-05-20 09:43] LABS: Hematocrit 37.8 % (39.0-52.0); Hemoglobin 12.2 g/dL (13.0-18.0); Mean Corp Hgb Conc. 32.3 g/dL (33.0-37.0); Mean Corpuscular Hgb 27.1 pg (27.0-31.0); Mean Corpuscular Volume 83.8 fL (80.0-94.0); Mean Platelet Volume 11.1 fL (7.4-10.4); Platelet Count 157 10^3/uL (130-400); Red Blood Cell Count 4.51 10^6/uL (4.70-6.10); White Blood Cell Count 7.9 10^3/uL (4.8-10.8)
[2024-05-20 09:47] LABS: Lymphocytes 7 % (20-51); Monocytes 13 % (2-9); Normal RBC Morphology No; Nucleated Red Blood Cells 2 (-); Platelets Checked Yes; Segmented Neutrophils 80 % (42-75); Total Cells Counted 100
--- NOTE | 2024-05-20 10:06 | W.PN.ID1 ---
Date of Service
Date of Service: May 20, 2024
Today's Communication
- doxycycline stopped
- if lyme serologies were positive would interpret as likely previous infection
ID service will no longer actively follow this patient please recall for further questions
Assessment / Plan
Acute Transaminitis -suspect hepatic congestion from severe CHF
Elevated Tbili
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
Severe and TR: AVR evaluation in progress
- alternative diagnosis (hepatic congestion) more likely than tick born infection
- doxycycline stopped
- if lyme serologies were positive would interpret as likely previous infection
ID service will no longer actively follow this patient please recall for further questions
Chief Complaint
-: Other (rash, transaminitis)
Subjective / Review of Systems
remains afebrile
mildly hypotensive today
Vital Signs / Physical Exam
Vital Signs
Vital Signs
Temp Pulse Resp BP Pulse Ox
98.6 F 65 18 92/51 97
05/20/24 07:35 05/20/24 07:35 05/20/24 07:35 05/20/24 07:35 05/20/24 08:29
Physical Exam
Constitutional: No Acute Distress and Chronically Ill
Cardiovascular: Regular Rate and S1/S2; Negative Murmur or Rub
Pulmonary: Clear and Symmetric; Negative Wheezes or Rales
Gastrointestinal: Soft, Non Tender, Non Distended and Normal Bowel Sounds
Skin: Warm and Dry; Negative Jaundice
Neurological: Awake
Objective Data
Lab Data
Lab Results
05/20/24 06:10
05/20/24 06:10
PT 22.6 Sec (11.4-14.6) H 05/16/24 06:17
INR 1.97 05/16/24 06:17
Estimated Creat Clear 45 ml/min 05/20/24 06:10
Total Bilirubin 1.8 mg/dl (0.2-1.3) H 05/20/24 06:10
AST 117 U/L (17-59) H 05/20/24 06:10
ALT 149 U/L (0-50) H 05/20/24 06:10
Alkaline Phosphatase 65 U/L (38-126) 05/20/24 06:10
Most recent labs reviewed.
Micro Results:
05/15/24 13:37 Blood Parasites Smear - Final
Blood/Venous
--- NOTE | 2024-05-20 11:01 | CM ---
Cardiology involved evaluating pt for TAVR.
Lasix IV maintained.
Given PCP list and Wellness MD in [place].
PLAN Home with possible out pt Cardiac rehab
--- NOTE | 2024-05-20 14:23 | W.PN.HOSP.TC ---
Today's Communication/Plan
-
iv diuresis
monitor daily weights, Is&Os, bmp
DC doxy
TAVR planning depending on fluid status with diuresis
Assessment / Plan
Assessment / Plan
#Acute decompensated HFrEF
#Severe aortic stenosis
#Severe pulmonary hypertension with TR
#PVCs
-TTE yesterday showed EF 30% with global hypokinesis, severe aortic stenosis with high gradient and JUDSON 0.8
-Suspect NICM with degree of valvular stenosis though cannot rule out ischemic disease, limited history
-Volume status is improving on Lasix regimen; Cont iv Lasix
-Started on beta-deion for GDMT, holding today due to bradycardia; reduce to 25mg daily
-Outpatient TAVR workup: BMP 05/24, CT TAVR 06/03, CT surgery eval 06/11, dental clearance prior to TAVR
-Cardiology is following
-Start dietary restrictions with 2 g sodium, no added salt and 60 ounce fluid restriction
-Plan for TAVR as outpatient with further workup as above
-Monitor on telemetry
#Severe TR
#Severe
-undergoing TAVR evaluation
--Consider inpatient evaluation/TAVR if compensation is simply not possible due to hypotension.
-Monitor with diureis
#PVC's, bigeminy, brief SVT
#Bifascicular block
-Continue metoprolol as above.
#Ascites around the liver
##Acute transaminitis
#Elevated T. bili
-suspect 2/2 to hepatic congestion
-monitor with diuresis
#Rash -- right sided extremities and torso, no pruritus; no target lesions
-less likely tick borne illness
-dc doxy
-if lyme serologies were positive would interpret as likely previous infection
#CKD 2
--monitor with diuresis
DVT prophylaxis: Heparin
Diet: Sodium and fluid restricted
CODE STATUS: Full code
Anticipated Discharge: 24 - 48 hours
Subjective/Interval History
-
Date of Service: May 20, 2024
No acute events overnight, close to euvolemia
Objective Data
-
Labs:
Laboratory Results
05/20/24
06:10
WBC 7.9
Hgb 12.2 L
Hct 37.8 L
Plt Count 157
Sodium 135
Potassium 3.9
Chloride 94 L
Carbon Dioxide 22
BUN 64 H
Creatinine 1.2
Glucose 98
Calcium 9.2
Total Bilirubin 1.8 H
AST 117 H
ALT 149 H
Alkaline Phosphatase 65
Vital Signs:
Vital Signs
Temp Pulse Resp BP Pulse Ox
97.7 F 63 18 96/50 95
05/20/24 11:27 05/20/24 11:27 05/20/24 11:27 05/20/24 11:27 05/20/24 11:27
I&O
05/19/24 05/20/24 05/21/24
06:59 06:59 06:59
Intake Total 900 / 900 2250 / 2250
Output Total 1000 / 1000 300 / 300
Balance -100 / -100 1950 / 1950
Review of Systems
-
History Source: Patient
All other systems: Not reviewed unless documented
Data Reviewed
-
Diagnostic Radiology: Image personally visualized and interpreted and Report Reviewed by me
Ultrasound: Image personally visualized and interpreted
Labs: Labs Reviewed by me and Discussed with Patient
[2024-05-20 15:35] LABS: Lyme Antibody Screen, EIA Negative (Negative)
[2024-05-20] MEDS: HEPARIN SC ×2 (20:02→20:12)
[2024-05-21] VITALS (7 sets, daily range): BP systolic 88–124; BP diastolic 52–70; PULSE 81; BMI 27.4
--- NOTE | 2024-05-21 07:59 | W.PN.CD ---
Today's Communication / Plan
-
continue diuresis
may need to reconsider timing of TAVR
Impression / Plan
-
Impression/Plan: 79 yo male with no recent medical care (approx 16yrs) is admitted with HFrEF and rash/transaminitis concerning for a tick-borne illness.
#Acute, non-ischemic biventricular HFrEF
-Improving but relative hypotension. Likely due to severe/critical aortic valve stenosis.
-stopped metoprolol
-Continue IV lasix and diuresis as tolerated, may be limited by low CI in the setting of fixed structural obstruction of severe , will need intensive monitoring of labs and bp.
-GDMT limited by BP. Still visibly volume overloaded. Will focus on diuresis. We will give furosemide this morning and monitor.
#Severe :
-New diagnosis but chronic.
-Undergoing TAVR evaluation.
-Ideally, this will be concluded as an outpatient after he is compensated from HFrEF.
-This may need to be considered to be done in the op setting---I d/w Dr Mills
#Severe TR:
-New diagnosis.
-RV enlargement likely leading to functional TR.
-Reassess with diuresis.
#PVC's, bigeminy, brief SVT
-New diagnosis.
-asx monitor
#Bifascicular block
-New diagnosis, but stable.
#Transaminitis
-New diagnosis.
-Hep A/B/C negative.
-Suspect congestion given degree of volume overload.
-Improving with diuresis.
-ID involved. Tick borne titers pending (lyme, babesia smear negative). Empiric course of doxycycline.
Subjective/Interval History:
'legs still swollen all the way up' no cp or sob
DATA:
Cath: 05/16/24
HEMODYNAMIC DATA
RA 23 mmHg
RV 73/15 (EDP 23) mmHg
PA 72/39 (mean 51) mmHg
PCWP 33 mmHg
CO/CI 3.3/1.7 L/min/m2
SVR 1619 dsc*-5
PVR 5.5 Wood units
LV 208/21 (EDP 40) mmHg
AO 124/63 (mean 89) mmHg
CORONARY ANGIOGRAPHY
Dominance: right
LM: normal
LAD: gives rise to a moderate caliber high rising D1, large D2, and small D3 before wrapping around the apex. There are mild luminal irregularities.
LCx: gives rise to a large OM1 and small OM2. There are mild luminal irregularities.
RCA: gives rise to a large RDPA and two large RPL branches. There are mild luminal irregularities.
CONCLUSIONS:
1. 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
2. Non-obstructive coronary artery disease in a right dominant system.
TTE, 05/15/24:
CONCLUSIONS
Moderately reduced left ventricular systolic function. Left ventricular
ejection fraction is 30%.
Global hypokinesis.
Mild/moderate mitral regurgitation. Mild mitral stenosis.
Severe aortic stenosis. Peak/mean gradients across the aortic valve are 60/38
mmHg, and increase to 172/102 mmHg post PVC.
Using an LVOT diameter of 2.0 cm the aortic valve by the Continuity equation is
calculated at 0.8 cm2. Mild/moderate eccentric aortic regurgitation.
Mildly enlarged right ventricular size. Normal right ventricular systolic
function.
Severe tricuspid regurgitation. Severely elevated PASP. Estimated pulmonary
artery pressure of 77 mmHg assuming a right atrial pressure of 15 mmHg.
Ectatic proximal ascending aorta measures 3.9 cm.
Physical Exam
Vital Signs/Labs
Vital Signs
Temp Pulse Resp BP Pulse Ox
97.5 F 64 19 88/53 97
05/21/24 03:15 05/21/24 03:15 05/21/24 03:15 05/21/24 03:15 05/21/24 03:15
05/20/24 05/21/24 05/22/24
06:59 06:59 06:59
Actual Weight 79.651 kg 79.18 kg
PT 22.6 Sec (11.4-14.6) H 05/16/24 06:17
INR 1.97 05/16/24 06:17
Magnesium 1.8 mg/dl (1.6-2.3) 05/20/24 06:10
Triglycerides 89 mg/dl (10-149) 05/15/24 06:20
LDL Cholesterol, Calc 88 mg/dl 05/15/24 06:20
VLDL Cholesterol, Calc 17 mg/dl (0-30) 05/15/24 06:20
HDL Cholesterol 18 mg/dl 05/15/24 06:20
05/14/24
12:02
[id number] Pept > [id number]
Physical Exam
Constitutional: No acute distress
Cardiovascular: Rhythm & rate is regular, JVD pressure is normal, Pedal edema present (2+ pitting edema up to the thighs ) and Systolic murmur present (2/6 crescendo decrescendo in all areas)
Respiratory: Respiratory effort normal, Lungs clear to auscul., Wheeze Absent, Crackles Absent and Rhonchi Absent
Neuro/Psych: AO x 3
Data Reviewed
-
Date of Service: May 21, 2024
Medical Decision Making: Review of Case with other Provider (Dr Mills and Dr Borrego re possible reconsideration of timing of tavr)
[2024-05-21] MEDS: HEPARIN 5000 UNITS SC ×2 (08:04→21:17)
[2024-05-21] MEDS: LOW STRENGTH ASPIRIN 81 MG PO (08:05)
[2024-05-21] MEDS: LASIX 40 MG IV ×2 (08:05→15:11)
[2024-05-21 08:54] LABS: Hematocrit 38.9 % (39.0-52.0); Hemoglobin 12.5 g/dL (13.0-18.0); Mean Corp Hgb Conc. 32.1 g/dL (33.0-37.0); Mean Corpuscular Hgb 27.1 pg (27.0-31.0); Mean Corpuscular Volume 84.4 fL (80.0-94.0); Mean Platelet Volume 10.5 fL (7.4-10.4); Platelet Count 146 10^3/uL (130-400); Red Blood Cell Count 4.61 10^6/uL (4.70-6.10); Red Cell Dist. Width 15.1 % (11.5-14.5); White Blood Cell Count 8.7 10^3/uL (4.8-10.8)
[2024-05-21 09:19] LABS: ALT (SGPT) 142 U/L (0-50); AST (SGOT) 106 U/L (17-59); Albumin 3.5 g/dl (3.5-5.0); Alkaline Phosphatase 78 U/L (38-126); Blood Urea Nitrogen 73 mg/dl (9-20); Calcium 9.1 mg/dl (8.4-10.2); Carbon Dioxide 32 mmol/L (22-30); Chloride 93 mmol/L (98-107); Estimated Creatinine Clearance 45 ml/min; Glucose 90 mg/dl (70-99); Potassium 3.3 mmol/L (3.5-5.1); Sodium 139 mmol/L (135-145); Total Bilirubin 1.7 mg/dl (0.2-1.3); Total Protein 6.5 g/dl (6.3-8.2); eGFR > 60.00
[2024-05-21] MEDS: KCL ELIXIR 40 MEQ PO (11:40)
--- NOTE | 2024-05-21 14:12 | W.PN.HOSP.TC ---
Today's Communication/Plan
-
Continue IV diuresis as blood pressure permits
Inpatient planning for TAVR as severe aortic stenosis possibly prohibiting adequate diuresis
Assessment / Plan
Assessment / Plan
#Acute decompensated HFrEF
#Severe aortic stenosis
#Severe pulmonary hypertension with TR
#PVCs
-TTE yesterday showed EF 30% with global hypokinesis, severe aortic stenosis with high gradient and JUDSON 0.8
-Suspect NICM with degree of valvular stenosis though cannot rule out ischemic disease, limited history
-Volume status is improving on Lasix regimen; Cont iv Lasix
-Started on beta-deion for GDMT, stopping due to bradycardia/hypotension;
-Outpatient TAVR workup: BMP 05/24, CT TAVR 06/03, CT surgery eval 06/11, dental clearance prior to TAVR
-Cardiology is following
-Start dietary restrictions with 2 g sodium, no added salt and 60 ounce fluid restriction
-Plan for TAVR as severe aortic stenosis prohibiting adequate diuresis
-Monitor on telemetry
#Severe TR
#Severe
-undergoing TAVR evaluation
--Consider inpatient evaluation/TAVR due to valvular stenosis prohibiting adequate diuresis
-Monitor with diureis
#Hypokalemia
-monitor and replete
#PVC's, bigeminy, brief SVT
#Bifascicular block
-Continue metoprolol as above.
#Ascites around the liver
##Acute transaminitis
#Elevated T. bili
-suspect 2/2 to hepatic congestion
-monitor with diuresis
#Rash -- right sided extremities and torso, no pruritus; no target lesions
-less likely tick borne illness
-dc doxy
-if lyme serologies were positive would interpret as likely previous infection
#CKD 2
--monitor with diuresis
DVT prophylaxis: Heparin
Diet: Sodium and fluid restricted
CODE STATUS: Full code
Total time spent on today's encounter was 50 minutes which included time spent in counseling the patient/family regarding diagnosis and treatment plan as listed above, goals of care, and symptom management. Case was discussed with nursing staff,
specialists, and care coordinators/case management. All labs and imaging personally reviewed by me. Remainder the time spent in detailed review of previous records, lab data, imaging, and other medical provider documentation.
Anticipated Discharge: > 48 hours
Subjective/Interval History
-
Date of Service: May 21, 2024
no acute events
Objective Data
-
Labs:
Laboratory Results
05/21/24
08:14
WBC 8.7
Hgb 12.5 L
Hct 38.9 L
Plt Count 146
Sodium 139
Potassium 3.3 L
Chloride 93 L
Carbon Dioxide 32 H
BUN 73 H
Creatinine 1.2
Glucose 90
Calcium 9.1
Total Bilirubin 1.7 H
AST 106 H
ALT 142 H
Alkaline Phosphatase 78
Vital Signs:
Vital Signs
Temp Pulse Resp BP Pulse Ox
97.5 F 79 16 104/58 96
05/21/24 11:22 05/21/24 11:22 05/21/24 11:22 05/21/24 11:22 05/21/24 11:22
I&O
05/20/24 05/21/24 05/22/24
06:59 06:59 06:59
Intake Total 2250 / 2250 480 / 480
Output Total 300 / 300 1225 / 1225
Balance 1950 / 1950 -745 / -745
Review of Systems
-
History Source: Patient
All other systems: Not reviewed unless documented
Data Reviewed
-
Diagnostic Radiology: Image personally visualized and interpreted and Report Reviewed by me
Ultrasound: Image personally visualized and interpreted
Labs: Labs Reviewed by me and Discussed with Patient
--- NOTE | 2024-05-21 16:06 | CONSULT.CT ---
Consultation
-
Date/Time Consultation Requested: 05/21/24
Date/Time Consultation Performed: 05/21/24 1600
Requesting Provider: KWAN Victor
Performing Provider: Loren Cummins PA-C
Reason for Consultation: SAVR vs. TAVR eval
Patient History
Physicians
Family Physician: None
Outpatient Microsoft Office Instructor: None
Inpatient Microsoft Office Instructor: Dr. Marcos Morales MD.
History of Present Illness
Patient is an extremely pleasant 79-year-old male who denies any past medical history and has not been seen by In over 16 years. He states that the last time he was seen for medical care was at age 61 for cataract clearance.
Patient presents [facility]'s emergency department on 05/14/2024 with chief complaints of significant lower extremity edema. He states he was outside trimming bushes when he noticed a rash on his chest. After further examination the rash
was found to be present on his chest and back as well as his right arm and right leg. Patient went in the house to change his shoes when he noticed his lower extremity edema. After 1 to 2 days with continued lower extremity edema the patient
sought medical attention in the emergency department.
Due to lower extremity edema, cardiology consult was obtained. Further workup with echocardiogram revealed severe aortic valve stenosis, and severe tricuspid regurgitation, please see summary below. Subsequent cardiac catheterization revealed no
significant coronary artery disease. Patient was seen in consultation by the structural heart team and was being evaluated for TAVR workup. TAVR CT scan was completed. Patient is currently being evaluated by Dr. Debby Palm for dental clearance
due to poor dentition and several missing teeth.
CT surgery was consulted.
TTE 05/15/24: Andrew
EF 30% global hypokinesis
MV: mild-moderate MR, mild MS mg 4mmHg
AV: Severe , PG/MG 60/38 mmHg and increase to 172/102 post PVC. JUDSON 0.8, mild-moderate AI
TV: Severe TR, PAP 77 mmHg
PV: Moderate VT
Pericardium: trivial effusion
Cardiac Catheterization 05/16/24: Clement
LM: normal
LAD: mild LI
LCx. mild LI
RCA: Mild LI
CXR 05/14/24:
Elevated right hemidiaphragm
Abdominal US 2/2 transaminitis:
1). Bilateral pleural effusions
2). Small volume ascites around the liver
3). Bilateral renal cysts measuring up to 6 cm
Orthopantogram 05/21/24:
Limited study. Numerous missing mandibular teeth. No gross findings to suggest focal mandibular cortical bony destructive process.
EKG 05/14/24:
ST (105), RBBB, LAFB, Bifascicular block
TAVR CT 05/21/24:
Results pending
Past Medical History
Past Medical History: Other
History of b/l cataract surgery
Past Surgical History
Past Surgical History: Other (Bilateral cataracts 2005)
Dental History
Poor dentition, multiple missing teeth.
Patient has not seen a dentist in over 10 years.
Patient is currently being evaluated by [facility] inpatient dental Dr. Debby Palm for clearance
Family History
Mother: at Age (92) and Cause of (Complications with congestive heart failure)
Father: at Age (91) and Cause of (Unknown)
Social History
Alcohol: None
Drug: None
Tobacco: Non-Smoker
Personal: Single
Living: Alone
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
Allergies
Allergy/AdvReac Type Severity Reaction Status Date / Time
No Known Allergies Allergy Unverified 05/14/24 11:56
Home Medications
�Medication �Instructions �Recorded �Confirmed �Type
No Meds [No Current Medications] 05/14/24 05/14/24 History
Review of Systems
-
History Source: Patient
General: Reports Weight Gain; Denies Fever, Weight Loss, Fatigue, Night Sweats or Chills
HEENT: Denies Visual Changes, Dysphagia, Hoarseness or Sore Throat
Respiratory: Denies SOB, DELCUA, Cough, Asthma or PND
Cardiac: Reports Edema; Denies Chest Pain, CAD, Known Vascular Disease, Palpitations, Nausea, Vomiting or Diaphoresis
Abdomen/GI: Denies Abdominal Pain, Reflux, Indigestion, Nausea, Vomiting, BRBPR or Ulcers
: Denies Dysuria, Frequency, Incontinence or Hematuria
Musculoskeletal: Reports Edema; Denies Myalgias, Arthralgias or Joint Pain
Skin: Reports Rash (Diffuse rash present on right chest, back, and right upper and lower extremities); Denies Itching
Neurological: Denies CVA, TIA, Headaches, Syncope, Dizzy, Weakness or Seizures
Vascular: Denies Claudication
Physical Exam
Vital Signs
Temp 97.8 F 05/21/24 15:17
Temp route: Oral 05/21/24 15:17
Pulse 79 05/21/24 15:17
Rhythm: Normal sinus rhythm 05/21/24 07:30
With- Bundle Branch Block Confi, PVC's Monomorphic 05/21/24 07:30
Resp Rate 18 05/21/24 15:17
Blood pressure 100/58 05/21/24 15:17
Blood pressure extremity used: Right upper arm 05/21/24 15:17
Position: Sitting 05/21/24 15:17
MAP (cuff-Sukh Monitor) 84 05/14/24 19:04
SaO2 96 05/21/24 15:17
Oxygen Mode of Delivery Room air 05/21/24 15:17
Pulse Ox at Rest 95 05/20/24 09:20
Acceptable pain level during hospitalization? 0 05/14/24 11:54
Can the patient verbally communicate their pain? Yes 05/21/24 07:30
Pain scale ratin 05/18/24 07:35
Actual Weight 174 lb 9 oz 05/21/24 06:00
Body Mass Index (BMI) 27.4 05/21/24 06:00
Supine- Pulse 71 05/20/24 09:20
Sitting- Blood Pressure 107/64 05/15/24 14:14
Sitting- Pulse 51 05/15/24 14:14
Heart rate after activity 79 05/20/24 09:20
Blood pressure after activity 85/55 05/20/24 09:20
Oxygen Saturation with Activity 94 05/20/24 09:20
Labs
05/21/24 08:14
05/21/24 08:14
PT 22.6 Sec (11.4-14.6) H 05/16/24 06:17
Troponin I < 0.012 ng/ml 05/14/24 12:02
Obj-C-Nbyidktjuiv Pept > 23968 pg/ml 05/14/24 12:02
Diagnostic Studies
TTE 05/15/24: Andrew
EF 30% global hypokinesis
MV: mild-moderate MR, mild MS mg 4mmHg
AV: Severe , PG/MG 60/38 mmHg and increase to 172/102 post PVC. JUDSON 0.8, mild-moderate AI
TV: Severe TR, PAP 77 mmHg
PV: Moderate VT
Pericardium: trivial effusion
Cardiac Catheterization 05/16/24: Clement
LM: normal
LAD: mild LI
LCx. mild LI
RCA: Mild LI
CXR 05/14/24:
Elevated right hemidiaphragm
Abdominal US 2/2 transaminitis:
1). Bilateral pleural effusions
2). Small volume ascites around the liver
3). Bilateral renal cysts measuring up to 6 cm
Orthopantogram 05/21/24:
Limited study. Numerous missing mandibular teeth. No gross findings to suggest focal mandibular cortical bony destructive process.
EKG 05/14/24:
ST (105), RBBB, LAFB, Bifascicular block
TAVR CT 05/21/24:
Results pending
Exam
General: Well Developed, Well Nourished and No Apparent Distress
HEENT: Normocephalic, Moist Mucous Membranes, Atraumatic, PERRLA and EOMI
Neck: Trachea Midline; Negative Carotid Bruit
Respiratory: Clear; Negative Wheezes, Crackles, Rhonchi or Accessory Muscle Use
Cardiac: S1/S2, Regular Rhythm and Murmur (4-5/6 systolic ejection murmur heard loudest over the right second ICS and LSB); Negative Rub or Gallop
GI: Soft, Non Tender, Non Distended and Normal Bowel Sounds
Rectal: Deferred by Provider
Skin: Warm, Dry and Rash (Rash present over right chest and shoulder, throughout back, and upper and lower extremity. Nonpurulent or painful.)
Neuro: AO x 3, No Motor Deficits and CN X-XII Intact
Extremities: Lower Level Edema (B/L LE edema as well as pedal. at least 2-3+. Difficult to assess secondary to legs are wrapped in Harpal bandages); Negative Upper Level Edema
Psych: Calm
Assessment / Plan
-
Assessment:
79-year-old male with PMH significant for:
B/L cataract surgery
Poor dentition
Now found to have newly diagnosed:
Severe aortic valve stenosis
Severe tricuspid regurgitation
Acute HFrEF (30%, global hypokinesis)
B/L lower extremity edema
Transaminitis (TB:1.7 AST:106 ALT:142)
Plan:
Patient's case to be discussed with attending physician.
Continue TAVR workup.
Timing to be determined.
--- NOTE | 2024-05-21 17:27 | CON.SURG ---
Surgical Consultation
-
79 y.o M examined for dental clearance prior to having valve replacement surgery.
Exam: IOE and EOE WNL
Pt reports no active pain or discomfort in the mouth. He state he has not been to the dentist in about 16-17 years.
Examined SHARP image (reduced quality noted).
Noted the following issues upon clinical exam:
#20 broken tooth at gum line with RL.
# 29 Extensive decay from buccal
# 24 is missing a crown
# 14 extensive decay w PAP RL
#10, #7, #6 , Broken root tips
#8 and #9 have recurrent decay
#5 is severely broken with extensive decay from the buccal
#2/3 both have extensive deep recurrent decay, concerned that decay might affect the pulp in both these teeth.
--- Noted round opacity in pts R sinus, Consult w ENT is advised.
---- Advised ext of #4,6,7,10,14,20,29 prior to getting clearance (none restorable).
--- noted very deep decay on #2/3 concerned with how large decay is in both of these teeth, advise to consider ext prior to surgery.
-----#8/9--- should be addressed as soon as pt healths allows him to be seen in private practice.
---- Pt is advised to improve home care, POIG. Advised finding a dentist in private practice to address remaining dental needs such as restoring cavities, gum care and possibly fabrication of partials.
Debby Palm DDS
[2024-05-22] VITALS (7 sets, daily range): BP systolic 92–121; BP diastolic 53–70; PULSE 84; O2SAT 99; BMI 26.5
--- NOTE | 2024-05-22 07:13 | W.PN.CD ---
Today's Communication / Plan
-
Continue diuresis.
TAVR CTA.
Dentistry recommends extraction of several teeth.
Impression / Plan
-
Impression/Plan: 79 yo male with no recent medical care (approx 16yrs) is admitted with HFrEF and rash/transaminitis concerning for a tick-borne illness.
#Acute, non-ischemic biventricular HFrEF
-Improving but relative hypotension. Likely due to severe/critical aortic valve stenosis.
-Metoprolol stopped.
-Continue IV furosemide and diuresis as tolerated. This may be limited by low CI in the setting of fixed structural obstruction of severe , will need intensive monitoring of labs and bp.
-GDMT limited by BP. Still visibly volume overloaded. Will focus on diuresis. We may have to revisit TAVR timing.
-BP has stabilized off of metoprolol.
#Severe :
-New diagnosis but chronic.
-Undergoing TAVR evaluation.
-This may need to be considered to be done in the inpatient setting.
-Dentistry/ENT consult for tooth extraction.
-Urology consult for renal cyst/obstructive uropathy.
#Severe TR:
-New diagnosis.
-RV enlargement likely leading to functional TR.
-Reassess with diuresis.
#PVC's, bigeminy, brief SVT
-New diagnosis.
-Currently asymptomatic monitor.
#Bifascicular block
-New diagnosis, but stable.
#Transaminitis
-New diagnosis.
-Hep A/B/C negative.
-Suspect congestion given degree of volume overload.
-Improving with diuresis.
-ID involved. Tick borne titers negative. Empiric course of doxycycline has been discontinued.
Subjective/Interval History:
Weight down to 76.7 kg (from 79.18 <--83.7 at admission).
Blood pressures more stable over the course of yesterday and this morning.
SaO2 = 95% on RA.
DATA:
Orthopantogram, 05/21/2024:
FINDINGS and IMPRESSION:
Evaluation is overall limited as a result of some streak artifact.
There are numerous missing mandibular teeth.
There are no gross findings to suggest focal mandibular cortical bony destructive process.
CTA chest/abdomen/pelvis, 05/21/2024:
IMPRESSION:
Small to moderate right pleural effusion and tiny left pleural effusion with accompanying right lower lobe subsegmental atelectasis.
Approximate 2 cm right paratracheal mediastinal lymph node and some additional scattered subcentimeter mediastinal lymph nodes, nonspecific.
Coronary artery calcifications.
Small to moderate volume ascites in the abdomen and true pelvis.
Small bilateral simple renal cysts as well as additional subcentimeter low-attenuation right renal lesion too small to characterize.
No findings to suggest left-sided obstructive uropathy.
FINDINGS SUGGESTING MILD RIGHT-SIDED OBSTRUCTIVE UROPATHY at least in part possibly as a result of a large parapelvic right renal cyst.
Enlarged prostate gland impression upon the urinary bladder base.
Cath: 05/16/24
HEMODYNAMIC DATA
RA 23 mmHg
RV 73/15 (EDP 23) mmHg
PA 72/39 (mean 51) mmHg
PCWP 33 mmHg
CO/CI 3.3/1.7 L/min/m2
SVR 1619 dsc*-5
PVR 5.5 Wood units
LV 208/21 (EDP 40) mmHg
AO 124/63 (mean 89) mmHg
CORONARY ANGIOGRAPHY
Dominance: right
LM: normal
LAD: gives rise to a moderate caliber high rising D1, large D2, and small D3 before wrapping around the apex. There are mild luminal irregularities.
LCx: gives rise to a large OM1 and small OM2. There are mild luminal irregularities.
RCA: gives rise to a large RDPA and two large RPL branches. There are mild luminal irregularities.
CONCLUSIONS:
1. 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
2. Non-obstructive coronary artery disease in a right dominant system.
TTE, 05/15/24:
CONCLUSIONS
Moderately reduced left ventricular systolic function. Left ventricular
ejection fraction is 30%.
Global hypokinesis.
Mild/moderate mitral regurgitation. Mild mitral stenosis.
Severe aortic stenosis. Peak/mean gradients across the aortic valve are 60/38
mmHg, and increase to 172/102 mmHg post PVC.
Using an LVOT diameter of 2.0 cm the aortic valve by the Continuity equation is
calculated at 0.8 cm2. Mild/moderate eccentric aortic regurgitation.
Mildly enlarged right ventricular size. Normal right ventricular systolic
function.
Severe tricuspid regurgitation. Severely elevated PASP. Estimated pulmonary
artery pressure of 77 mmHg assuming a right atrial pressure of 15 mmHg.
Ectatic proximal ascending aorta measures 3.9 cm.
Physical Exam
Vital Signs/Labs
Vital Signs
Temp Pulse Resp BP Pulse Ox
36.6 C 82 20 104/68 97
05/22/24 03:08 05/22/24 03:08 05/22/24 03:08 05/22/24 03:08 05/22/24 03:08
05/20/24 05/21/24 05/22/24
11:59 11:59 11:59
Actual Weight 79.651 kg 79.18 kg 76.657 kg
PT 22.6 Sec (11.4-14.6) H 05/16/24 06:17
INR 1.97 05/16/24 06:17
Magnesium 1.8 mg/dl (1.6-2.3) 05/20/24 06:10
Triglycerides 89 mg/dl (10-149) 05/15/24 06:20
LDL Cholesterol, Calc 88 mg/dl 05/15/24 06:20
VLDL Cholesterol, Calc 17 mg/dl (0-30) 05/15/24 06:20
HDL Cholesterol 18 mg/dl 05/15/24 06:20
05/14/24
12:02
Rbe-K-Zfpugbkljmx Pept > [id number]
Physical Exam
Constitutional: No acute distress and Comfortable
EENT: Anicteric and Moist mucous membranes
Cardiovascular: Rhythm & rate is regular, Pedal edema is absent, JVD pressure is normal, Systolic murmur present and S1S2 is normal
Respiratory: Respiratory effort normal, Lungs clear to auscul., Wheeze Absent, Crackles Absent and Rhonchi Absent
GI: Soft, Distention absent, Flat, Non tender and Normal bowel sounds
Neuro/Psych: AO x 3
Data Reviewed
-
Date of Service: May 22, 2024
Medical Decision Making: Reviewed Test Results, Independent Historian Assessment and Test Interpretation
EKG: Tracing Personally Visualized and interpreted and Report Reviewed by me
Echo: Tracing Personally Visualized and interpreted and Report Reviewed by me
X-Ray/CT/US/MRI/NUC/PET: Image Personally Visualized and interpreted and Report Reviewed by me
Medical Tests (PFT, Pathology etc): Image Personally Visualized and interpreted and Report Reviewed by me
Labs: Labs Reviewed by me
Old Records: Reviewed
[2024-05-22 07:40] LABS: Hematocrit 35.7 % (39.0-52.0); Hemoglobin 11.3 g/dL (13.0-18.0); Mean Corp Hgb Conc. 31.7 g/dL (33.0-37.0); Mean Corpuscular Hgb 27.5 pg (27.0-31.0); Mean Corpuscular Volume 86.9 fL (80.0-94.0); Platelet Count 139 10^3/uL (130-400); Red Blood Cell Count 4.11 10^6/uL (4.70-6.10); Red Cell Dist. Width 15.1 % (11.5-14.5); White Blood Cell Count 9.6 10^3/uL (4.8-10.8)
[2024-05-22 08:21] LABS: ALT (SGPT) 112 U/L (0-50); AST (SGOT) 75 U/L (17-59); Albumin 3.4 g/dl (3.5-5.0); Alkaline Phosphatase 75 U/L (38-126); Blood Urea Nitrogen 67 mg/dl (9-20); Calcium 8.9 mg/dl (8.4-10.2); Carbon Dioxide 39 mmol/L (22-30); Chloride 95 mmol/L (98-107); Estimated Creatinine Clearance 60 ml/min; Glucose 91 mg/dl (70-99); Potassium 3.3 mmol/L (3.5-5.1); Sodium 145 mmol/L (135-145); Total Bilirubin 1.7 mg/dl (0.2-1.3); Total Protein 6.4 g/dl (6.3-8.2); eGFR > 60.00
[2024-05-22] MEDS: HEPARIN 5000 UNITS SC ×2 (09:36→09:38)
[2024-05-22] MEDS: LOW STRENGTH ASPIRIN 81 MG PO (09:36)
[2024-05-22] MEDS: LASIX 40 MG IV ×2 (09:37→16:03)
--- NOTE | 2024-05-22 14:45 | W.PN.HOSP.TC ---
Today's Communication/Plan
-
diuresis
TAVR planning
ENT, Urology consulted for clearance
Assessment / Plan
Assessment / Plan
#Acute decompensated HFrEF
#Severe aortic stenosis
#Severe pulmonary hypertension with TR
#PVCs
-TTE yesterday showed EF 30% with global hypokinesis, severe aortic stenosis with high gradient and JUDSON 0.8
-Suspect NICM with degree of valvular stenosis though cannot rule out ischemic disease, limited history
-Volume status is improving on Lasix regimen; Cont iv Lasix
-Started on beta-deion for GDMT, stopping due to bradycardia/hypotension;
-Outpatient TAVR workup: BMP 05/24, CT TAVR 06/03, CT surgery eval 06/11, dental clearance prior to TAVR
-Cardiology is following
-Start dietary restrictions with 2 g sodium, no added salt and 60 ounce fluid restriction
-Plan for TAVR as severe aortic stenosis prohibiting adequate diuresis
-Monitor on telemetry
-Tooth extraction as per dentistry
-CT surg consulted
#Obstructive uropathy on CT
-not seen on US
- ntd as per urology - can continue surgery planning
#Sinus opacity
-ENT consulted
#Severe TR
#Severe
-undergoing TAVR evaluation
--Consider inpatient evaluation/TAVR due to valvular stenosis prohibiting adequate diuresis
-Monitor with diuresis
#Hypokalemia
-monitor and replete
#PVC's, bigeminy, brief SVT
#Bifascicular block
-Continue metoprolol as above.
#Ascites around the liver
##Acute transaminitis
#Elevated T. bili
-suspect 2/2 to hepatic congestion
-monitor with diuresis
#Rash -- right sided extremities and torso, no pruritus; no target lesions
-less likely tick borne illness
-dc doxy
-if lyme serologies were positive would interpret as likely previous infection
#CKD 2
--monitor with diuresis
DVT prophylaxis: Heparin
Diet: Sodium and fluid restricted
CODE STATUS: Full code
Total time spent on today's encounter was 51 minutes which included time spent in counseling the patient/family regarding diagnosis and treatment plan as listed above, goals of care, and symptom management. Case was discussed with nursing staff,
specialists, and care coordinators/case management. All labs and imaging personally reviewed by me. Remainder the time spent in detailed review of previous records, lab data, imaging, and other medical provider documentation.
Anticipated Discharge: > 48 hours
Subjective/Interval History
-
Date of Service: May 22, 2024
no acute events; will need multiple teeth extraction
Objective Data
-
Labs:
Laboratory Results
05/22/24
07:03
WBC 9.6
Hgb 11.3 L
Hct 35.7 L
Plt Count 139
Sodium 145
Potassium 3.3 L
Chloride 95 L
Carbon Dioxide 39 H
BUN 67 H
Creatinine 0.9
Glucose 91
Calcium 8.9
Total Bilirubin 1.7 H
AST 75 H
ALT 112 H
Alkaline Phosphatase 75
Vital Signs:
Vital Signs
Temp Pulse Resp BP Pulse Ox
97.8 F 88 18 109/55 94
05/22/24 12:04 05/22/24 12:04 05/22/24 12:04 05/22/24 12:04 05/22/24 12:04
I&O
05/21/24 05/22/24 05/23/24
06:59 06:59 06:59
Intake Total 480 / 480 840 / 840
Output Total 1225 / 1225 2975 / 2975 650 / 650
Balance -745 / -745 -2135 / -2135 -650 / -650
Review of Systems
-
History Source: Patient
All other systems: Not reviewed unless documented
Physical Exam
-
General: Well Nourished, No Apparent Distress and Comfortable
HEENT: Normocephalic, Atraumatic, Moist Mucous Membranes and Anicteric
Respiratory: Clear to Auscultation and Non Labored Respirations; Negative Wheezes, Rales or Rhonchi
Cardiac: Regular Rhythm, S1/S2, Murmur and JVD; Negative Rub or Gallop
GI: Soft, Nontender, Nondistended and Normal Bowel Sounds
Musculoskeletal: No Clubbing, No Cyanosis and Other (2+ lower extremity edema bilaterally)
Skin: Warm, Dry and Normal Turgor; Negative Rash or Jaundice
Neuro: AO x 3, Nonfocal/Grossly Intact and Central Nerve's Intact
Psych: Calm
Data Reviewed
-
Diagnostic Radiology: Image personally visualized and interpreted and Report Reviewed by me
Ultrasound: Image personally visualized and interpreted
Labs: Labs Reviewed by me and Discussed with Patient
--- NOTE | 2024-05-22 15:48 | CM ---
Cardiology involved evaluating pt for TAVR.
Pt unsure if he will have TAVR this hospital stay.
Lasix IV maintained.
Given PCP list and Wellness MD in [place].
If TAVR transfer to IVU.
PLAN Home with possible out pt Cardiac rehab
[2024-05-22] MEDS: KCL ELIXIR 40 MEQ PO (16:03)
--- NOTE | 2024-05-22 17:49 | CON.MD ---
Consultation - Medical
-
Chief complaint: Questionable opacity in right maxillary sinus
History of present illness: This 79-year-old gentleman was recently diagnosed with an orthopantogram because of poor dentition. It was thought that the patient had a density in his right maxillary sinus. The patient has a history of nasal trauma
when he was younger. He breathes adequately out of his nose. He does not have any significant purulent drainage. He does not experience significant signs of symptoms. I was asked to see the patient regarding this questionable sinus density.
Past medical history:
Allergies: No known drug allergies
Home medications: No medications
Medical problems: Hepatic congestion, rash, hyperbilirubinemia, hyperkalemia, aortic stenosis, cardiac murmur, bifascicular block, transaminitis, heart failure with reduced ejection fraction, bug bites, acute hyperkalemia, congestive heart failure
Family history: Asked and is noncontributory for this problem
Social history: The patient is a former alcohol user he does not smoke.
Hospitalizations: The patient is currently hospitalized at [facility].
Review of systems: Negative for nasal congestion, negative for purulent drainage from nose, negative for facial pain,
Physical examination:
Head: Atraumatic and normocephalic
Eyes: Extraocular movements are intact, pupils are equal and reactive to light and accommodation
Nose: The patient has a deviated septum. Adequate visualization was not possible with a speculum
Oral cavity/oropharynx: Normal exam
Neck: Supple without adenopathy
Cranial nerves: II through XII are intact
Salivary glands: Normal to examination
Thyroid gland: Normal to exam
Skin: Normal examination
Nasal endoscopy: This was performed at the bedside. The patient tolerated well. He has significant deviation of the septum. He has some pale swelling consistent with possible mild allergies but a pretty good nasal airway and no evidence of
purulent drainage or polyps. Nasopharynx is clear.
Orthopantogram: This was evaluated the patient has definite asymmetry of his turbinates with poor visualization of the turbinates on the left side. The sinuses appear to be normal. No disease is seen.
Impression: The patient does not have evidence of sinus disease either on physical examination with a nasal endoscope or on his x-ray.
Plan: No further follow-up required.
[2024-05-23] VITALS (9 sets, daily range): BP systolic 80–118; BP diastolic 48–93; PULSE 91; BMI 25.3
--- NOTE | 2024-05-23 07:11 | W.PN.CD ---
Today's Communication / Plan
-
Continue diuresis.
Dental extractions tomorrow.
We will discuss in multidisciplinary meeting tomorrow.
As he becomes more euvolemic, we will transition to PO diuretics and attempt to add GDMT.
Impression / Plan
-
Impression/Plan: 79 yo male with no recent medical care (approx 16yrs) is admitted with HFrEF and rash/transaminitis concerning for a tick-borne illness.
#Acute, non-ischemic biventricular HFrEF
-Improving.
-Metoprolol stopped due to episodes of hypotension when combined with diuresis.
-Continue IV furosemide and diuresis.
-As he approaches euvolemia, we will transition to PO diuretics and attempt to add GDMT.
#Severe :
-New diagnosis but chronic.
-Undergoing inpatient TAVR evaluation.
-Dentistry planning for extractions tomorrow under local anesthesia.
-Incidental findings on CTA have been investigated (urology, ENT), no further workup indicated.
-Depending on his ability to stabilize, we will continue to evaluate for TAVR (inpatient vs. expedited outpatient).
#Severe TR:
-New diagnosis.
-RV enlargement likely leading to functional TR.
-Reassess after diuresis.
#PVC's, bigeminy, brief SVT
-New diagnosis.
-Currently asymptomatic monitor.
#Bifascicular block
-New diagnosis, but stable.
#Transaminitis
-Improving.
-Suspect congestion given degree of volume overload.
Subjective/Interval History:
Weight continues to fall, now down an additional 3.5 kg from yesterday (73.2 <-- 76.7), nearly 10 kg overall (admission weight 83.7 kg).
BP holding between 100-[address] systolic[address] scan/renal US reviewed. No further intervention required.
ENT evaluated for sinus abnormality on orthopantogram - no abnormality on fiberoptic scope.
Dentistry involved, tentatively planned for multiple extractions tomorrow under local anesthesia.
Labs pending.
DATA:
Orthopantogram, 05/21/2024:
FINDINGS and IMPRESSION:
Evaluation is overall limited as a result of some streak artifact.
There are numerous missing mandibular teeth.
There are no gross findings to suggest focal mandibular cortical bony destructive process.
CTA chest/abdomen/pelvis, 05/21/2024:
IMPRESSION:
Small to moderate right pleural effusion and tiny left pleural effusion with accompanying right lower lobe subsegmental atelectasis.
Approximate 2 cm right paratracheal mediastinal lymph node and some additional scattered subcentimeter mediastinal lymph nodes, nonspecific.
Coronary artery calcifications.
Small to moderate volume ascites in the abdomen and true pelvis.
Small bilateral simple renal cysts as well as additional subcentimeter low-attenuation right renal lesion too small to characterize.
No findings to suggest left-sided obstructive uropathy.
FINDINGS SUGGESTING MILD RIGHT-SIDED OBSTRUCTIVE UROPATHY at least in part possibly as a result of a large parapelvic right renal cyst.
Enlarged prostate gland impression upon the urinary bladder base.
Cath: 05/16/24
HEMODYNAMIC DATA
RA 23 mmHg
RV 73/15 (EDP 23) mmHg
PA 72/39 (mean 51) mmHg
PCWP 33 mmHg
CO/CI 3.3/1.7 L/min/m2
SVR 1619 dsc*-5
PVR 5.5 Wood units
LV 208/21 (EDP 40) mmHg
AO 124/63 (mean 89) mmHg
CORONARY ANGIOGRAPHY
Dominance: right
LM: normal
LAD: gives rise to a moderate caliber high rising D1, large D2, and small D3 before wrapping around the apex. There are mild luminal irregularities.
LCx: gives rise to a large OM1 and small OM2. There are mild luminal irregularities.
RCA: gives rise to a large RDPA and two large RPL branches. There are mild luminal irregularities.
CONCLUSIONS:
1. 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
2. Non-obstructive coronary artery disease in a right dominant system.
TTE, 05/15/24:
CONCLUSIONS
Moderately reduced left ventricular systolic function. Left ventricular
ejection fraction is 30%.
Global hypokinesis.
Mild/moderate mitral regurgitation. Mild mitral stenosis.
Severe aortic stenosis. Peak/mean gradients across the aortic valve are 60/38
mmHg, and increase to 172/102 mmHg post PVC.
Using an LVOT diameter of 2.0 cm the aortic valve by the Continuity equation is
calculated at 0.8 cm2. Mild/moderate eccentric aortic regurgitation.
Mildly enlarged right ventricular size. Normal right ventricular systolic
function.
Severe tricuspid regurgitation. Severely elevated PASP. Estimated pulmonary
artery pressure of 77 mmHg assuming a right atrial pressure of 15 mmHg.
Ectatic proximal ascending aorta measures 3.9 cm.
Physical Exam
Vital Signs/Labs
Vital Signs
Temp Pulse Resp BP Pulse Ox
36.8 C 93 16 101/66 94
05/23/24 06:55 05/23/24 06:55 05/23/24 06:55 05/23/24 06:55 05/23/24 06:55
05/21/24 05/22/24 05/23/24
11:59 11:59 11:59
Actual Weight 79.18 kg 76.657 kg 73.227 kg
PT 22.6 Sec (11.4-14.6) H 05/16/24 06:17
INR 1.97 05/16/24 06:17
Magnesium 1.8 mg/dl (1.6-2.3) 05/20/24 06:10
Triglycerides 89 mg/dl (10-149) 05/15/24 06:20
LDL Cholesterol, Calc 88 mg/dl 05/15/24 06:20
VLDL Cholesterol, Calc 17 mg/dl (0-30) 05/15/24 06:20
HDL Cholesterol 18 mg/dl 05/15/24 06:20
05/14/24
12:02
[id number] Pept > [id number]
Physical Exam
Constitutional: No acute distress and Comfortable
EENT: Anicteric and Moist mucous membranes
Cardiovascular: Rhythm & rate is regular, JVD pressure is normal, Pedal edema present (Confined to lower aspect of lower extremities.), Systolic murmur present and Other (S2 is absent.)
Respiratory: Respiratory effort normal, Lungs clear to auscul., Wheeze Absent, Crackles Absent and Rhonchi Absent
GI: Soft, Distention absent, Flat, Non tender and Normal bowel sounds
Neuro/Psych: AO x 3
Data Reviewed
-
Date of Service: May 23, 2024
Medical Decision Making: Reviewed Test Results, Independent Historian Assessment, Test Interpretation and Review of Case with other Provider
EKG: Tracing Personally Visualized and interpreted and Report Reviewed by me
Echo: Tracing Personally Visualized and interpreted and Report Reviewed by me
X-Ray/CT/US/MRI/NUC/PET: Image Personally Visualized and interpreted and Report Reviewed by me
Medical Tests (PFT, Pathology etc): Image Personally Visualized and interpreted and Report Reviewed by me
Labs: Labs Reviewed by me
[2024-05-23] MEDS: LASIX 40 MG IV ×2 (07:45→17:03)
[2024-05-23] MEDS: HEPARIN 5000 UNITS SC ×2 (07:45→20:31)
[2024-05-23] MEDS: LOW STRENGTH ASPIRIN 81 MG PO (07:45)
[2024-05-23 08:23] LABS: Hematocrit 31.4 % (39.0-52.0); Hemoglobin 9.9 g/dL (13.0-18.0); Mean Corp Hgb Conc. 31.5 g/dL (33.0-37.0); Mean Corpuscular Hgb 26.9 pg (27.0-31.0); Mean Corpuscular Volume 85.3 fL (80.0-94.0); Mean Platelet Volume 10.9 fL (7.4-10.4); Platelet Count 127 10^3/uL (130-400); Red Blood Cell Count 3.68 10^6/uL (4.70-6.10); Red Cell Dist. Width 15.2 % (11.5-14.5); White Blood Cell Count 7.3 10^3/uL (4.8-10.8)
[2024-05-23 09:15] LABS: ALT (SGPT) 88 U/L (0-50); AST (SGOT) 84 U/L (17-59); Albumin 3.3 g/dl (3.5-5.0); Alkaline Phosphatase 65 U/L (38-126); Blood Urea Nitrogen 60 mg/dl (9-20); Calcium 9.1 mg/dl (8.4-10.2); Carbon Dioxide 38 mmol/L (22-30); Chloride 95 mmol/L (98-107); Estimated Creatinine Clearance 60 ml/min; Glucose 99 mg/dl (70-99); Magnesium 1.6 mg/dl (1.6-2.3); Potassium 3.1 mmol/L (3.5-5.1); Sodium 144 mmol/L (135-145); Total Bilirubin 1.8 mg/dl (0.2-1.3); Total Protein 6.1 g/dl (6.3-8.2); eGFR > 60.00
[2024-05-23 09:29] LABS: LDH 345 U/L (120-246)
--- NOTE | 2024-05-23 14:10 | W.PN.UPDATE ---
Update Note
Progress Note Update
Called to bedside for new, rapid, irregular rhythm.
EKG shows new atrial fibrillation with rapid ventricular response.
The patient is entirely asymptomatic.
HR hovering around 130 bpm with occasional PVC's.
Given prior problems with hypotension but need for rate control, we will start amiodarone 150 mg IV x1 followed by a gtt at 1 mg/min.
If further rate control is needed, we will consider a digoxin load, but this is probably not sufficient as a single agent.
I will discuss anticoagulation with dentistry given pending teeth extractions.
Check BMP/Mg/PO4 given degree of diuresis.
--- NOTE | 2024-05-23 14:22 | W.PN.HOSP.TC ---
Today's Communication/Plan
-
iv diuresis
tavr planning
teeth extraction tomorrow
amio, monitor hr
monitor hgb- f/u haptoglobin, iron labs; may be related to severe ? Stool is brown. will need to be conscious of hgb levels once started anticoag started.
Assessment / Plan
Assessment / Plan
#Acute decompensated HFrEF
#Severe aortic stenosis
#Severe pulmonary hypertension with TR
#PVCs
-TTE yesterday showed EF 30% with global hypokinesis, severe aortic stenosis with high gradient and JUDSON 0.8
-Suspect NICM with degree of valvular stenosis though cannot rule out ischemic disease, limited history
-Volume status is improving on Lasix regimen; Cont iv Lasix
-Started on beta-deion for GDMT, stopping due to bradycardia/hypotension;
-Outpatient TAVR workup: BMP 05/24, CT TAVR 06/03, CT surgery eval 06/11, dental clearance prior to TAVR
-Cardiology is following
-Start dietary restrictions with 2 g sodium, no added salt and 60 ounce fluid restriction
-Plan for TAVR as severe aortic stenosis prohibiting adequate diuresis
-Monitor on telemetry
-Tooth extraction as per dentistry
-CT surg consulted
# New onset atrial fibrillation with RVR
-Started on amiodarone, amiodarone drip
� May need digoxin load
� Anticoagulation after confirming timing of teeth extraction
#Obstructive uropathy on CT
-not seen on US
- ntd as per urology - can continue surgery planning
#Sinus opacity
-ENT consulted
#Anemia, acute v acute on on chronic
-f/u iron labs, haptoglobin, ldh is high
-possibly due to sheer stress of stensos
-stool is brown
-will need to monitor hgb once anticoag started
#Severe TR
#Severe
-undergoing TAVR evaluation
--Consider inpatient evaluation/TAVR due to valvular stenosis prohibiting adequate diuresis
-Monitor with diuresis
#Hypokalemia
-monitor and replete
#PVC's, bigeminy, brief SVT
#Bifascicular block
-Continue metoprolol as above.
#Ascites around the liver
##Acute transaminitis
#Elevated T. bili
-suspect 2/2 to hepatic congestion
-monitor with diuresis
#Rash -- right sided extremities and torso, no pruritus; no target lesions
-less likely tick borne illness
-dc doxy
-if lyme serologies were positive would interpret as likely previous infection
#CKD 2
--monitor with diuresis
DVT prophylaxis: Heparin
Diet: Sodium and fluid restricted
CODE STATUS: Full code
Total time spent on today's encounter was 513minutes which included time spent in counseling the patient/family regarding diagnosis and treatment plan as listed above, goals of care, and symptom management. Case was discussed with nursing staff,
specialists, and care coordinators/case management. All labs and imaging personally reviewed by me. Remainder the time spent in detailed review of previous records, lab data, imaging, and other medical provider documentation.
Anticipated Discharge: > 48 hours
Subjective/Interval History
-
Date of Service: May 23, 2024
diuresis, went into afib.
Objective Data
-
Labs:
Laboratory Results
05/23/24 05/23/24
08:00 14:13
WBC 7.3
Hgb 9.9 L
Hct 31.4 L
Plt Count 127 L
Sodium 144 Pending
Potassium 3.1 L Pending
Chloride 95 L Pending
Carbon Dioxide 38 H Pending
BUN 60 H Pending
Creatinine 0.9 Pending
Glucose 99 Pending
Calcium 9.1 Pending
Total Bilirubin 1.8 H
AST 84 H
ALT 88 H
Alkaline Phosphatase 65
Vital Signs:
Vital Signs
Temp Pulse Resp BP Pulse Ox
97.5 F 131 18 92/62 99
05/23/24 12:04 05/23/24 13:36 05/23/24 13:36 05/23/24 13:36 05/23/24 13:36
I&O
05/22/24 05/23/24 05/24/24
06:59 06:59 06:59
Intake Total 840 / 840 840 / 840
Output Total 2975 / 2975 4750 / 4750 700 / 700
Balance -2135 / -2135 -3910 / -3910 -700 / -700
Review of Systems
-
History Source: Patient
All other systems: Not reviewed unless documented
Physical Exam
-
General: Well Nourished, No Apparent Distress and Comfortable
HEENT: Normocephalic, Atraumatic, Moist Mucous Membranes and Anicteric
Respiratory: Clear to Auscultation and Non Labored Respirations; Negative Wheezes, Rales or Rhonchi
Cardiac: Irregular Rhythm, Murmur and JVD; Negative Rub or Gallop
GI: Soft, Nontender, Nondistended and Normal Bowel Sounds
Musculoskeletal: No Clubbing, No Cyanosis and Other (2+ lower extremity edema bilaterally)
Skin: Warm, Dry and Normal Turgor; Negative Rash or Jaundice
Neuro: AO x 3, Nonfocal/Grossly Intact and Central Nerve's Intact
Psych: Calm
Data Reviewed
-
Diagnostic Radiology: Image personally visualized and interpreted and Report Reviewed by me
Ultrasound: Image personally visualized and interpreted
Labs: Labs Reviewed by me
[2024-05-23] MEDS: CORDARONE 103 MG IV (14:35)
[2024-05-23] MEDS: CORDARONE 518 MG IV (15:04)
[2024-05-23 15:06] LABS: Iron 60 ug/dl (49-181)
[2024-05-23] MEDS: KCL ELIXIR 40 MEQ PO ×2 (15:10→17:03)
[2024-05-23 15:15] LABS: Percent Saturation 17 % (20-50); Total Iron Binding Capacity 335 ug/dl (261-462)
--- NOTE | 2024-05-23 15:36 | PTCARENOTE ---
Patient noted to be in Afib with rate in 140s. Patient in chair resting at the time and no symptoms. EKG performed. Cardiology team notifed. BP 92/66. Cardizem bolus given followed by cardizem gtt at 1 mg/hour - 33.3 mls/hour. New peripheral IV line
placed in left forearm and cardizem gtt running via the newly placed line. BP remains within parameters with MAP 66 - 68. Patient converted back to baseline at this time. Patient HR 110 - Stach with BBB and PVCs. Patient remains asymptomatic.
Patient resting in bed at this time.
[2024-05-23 15:54] LABS: Blood Urea Nitrogen 59 mg/dl (9-20); Calcium 8.9 mg/dl (8.4-10.2); Carbon Dioxide 40 mmol/L (22-30); Chloride 94 mmol/L (98-107); Estimated Creatinine Clearance 60 ml/min; Glucose 179 mg/dl (70-99); Magnesium 1.6 mg/dl (1.6-2.3); Potassium 2.8 mmol/L (3.5-5.1); Sodium 143 mmol/L (135-145); eGFR > 60.00
[2024-05-23 16:01] LABS: Ferritin 85.9 ng/ml (17.9-464.0)
--- NOTE | 2024-05-23 17:15 | CM ---
Cardiology involved evaluating pt for TAVR.
Pt to have teeth removed
Continued diuretic with Lasix IV.
Given PCP list and Wellness MD in [place].
PLAN Home no anticipated
[2024-05-23 22:07] LABS: Blood Urea Nitrogen 61 mg/dl (9-20); Calcium 8.9 mg/dl (8.4-10.2); Carbon Dioxide 33 mmol/L (22-30); Chloride 94 mmol/L (98-107); Estimated Creatinine Clearance 54 ml/min; Glucose 162 mg/dl (70-99); Potassium 3.6 mmol/L (3.5-5.1); Sodium 141 mmol/L (135-145); eGFR > 60.00
[2024-05-24] VITALS (7 sets, daily range): BP systolic 84–104; BP diastolic 55–65; BMI 25.4
--- NOTE | 2024-05-24 06:07 | W.PN.UPDATE ---
Update Note
Progress Note Update
Amiodorone stopped due to hypotension. Pt NSR in 80s.
--- NOTE | 2024-05-24 06:25 | W.PN.UPDATE ---
Update Note
Progress Note Update
Amiodorone held overnight due to hypotension. He remained in SR with rate of 80s.
[2024-05-24 07:55] LABS: % Basophils 0.1 % (0-2); % Immature Granulocytes 1.3 % (0-0.5); % Monocytes 9.4 % (1.7-9.3); % Neutrophils 80.2 % (42.2-75.2); Absolute Immature Granulocytes 0.1 10^3/uL (0-0.05); Absolute Lymphocytes 0.6 10^3/uL (1.2-3.4); Absolute Monocytes 0.7 10^3/uL (0.1-0.6); Absolute Neutrophils 5.7 10^3/uL (1.4-6.5); Hemoglobin 8.3 g/dL (13.0-18.0); Mean Corp Hgb Conc. 31.9 g/dL (33.0-37.0); Mean Corpuscular Hgb 27.7 pg (27.0-31.0); Mean Corpuscular Volume 86.7 fL (80.0-94.0); Mean Platelet Volume 10.7 fL (7.4-10.4); Nucleated Red Blood Cells % 0 % (-); Platelet Count 113 10^3/uL (130-400); Red Cell Dist. Width 15.7 % (11.5-14.5); White Blood Cell Count 7.1 10^3/uL (4.8-10.8)
--- NOTE | 2024-05-24 08:06 | W.PN.CD ---
Today's Communication / Plan
-
Magnesium 2g IV.
Hold furosemide this morning.
Transition to PO furosemide after dental extractions.
Our goal is to discharge and bring back for outpatient TAVR (tentatively 06/05/2024), but we will see if he is able to maintain a perfusing pressure with diuretics.
Impression / Plan
-
Impression/Plan: 79 yo male with no recent medical care (approx 16yrs) is admitted with HFrEF and rash/transaminitis concerning for a tick-borne illness.
#Acute, non-ischemic biventricular HFrEF
-Improving.
-Metoprolol stopped due to episodes of hypotension when combined with diuresis.
-Hold diuretics this morning.
-Transition to PO furosemide 40 mg daily, probably tomorrow.
-Monitor BP/renal function and add GDMT as hemodynamics will allow.
-Magnesium 2 g IV now.
#Severe :
-New diagnosis but chronic.
-Undergoing inpatient TAVR evaluation.
-Dentistry planning for extractions today under local anesthesia.
-Incidental findings on CTA have been investigated (urology, ENT), no further workup indicated.
-Depending on his ability to stabilize, we will continue to evaluate for TAVR (inpatient vs. expedited outpatient).
#Severe TR:
-New diagnosis.
-RV enlargement likely leading to functional TR.
-Reassess after diuresis.
#Paroxysmal atrial fibrillation
-New diagnosis.
-Currently in NSR.
-Rate/rhythm control with amiodarone gtt as needed.
-CHADS2-Vasc = 3 (CHF, Age x2).
-Therapeutic anticoagulation on hold for dental.
-Question the need for skilled nursing AC given electrolyte disturbance/diuresis as a mechanism for short lived AF.
#Bifascicular block
-New diagnosis, but stable.
#Transaminitis
-Improving.
-Suspect congestion given degree of volume overload.
Subjective/Interval History:
The patient lapsed into atrial fibrillation yesterday.
Amiodarone gtt started for rate/rhythm control. Converted to NSR yesterday afternoon.
Anticoagulation held in light of teeth extraction later today.
Some relative hypotension overnight.
DATA:
Orthopantogram, 05/21/2024:
FINDINGS and IMPRESSION:
Evaluation is overall limited as a result of some streak artifact.
There are numerous missing mandibular teeth.
There are no gross findings to suggest focal mandibular cortical bony destructive process.
CTA chest/abdomen/pelvis, 05/21/2024:
IMPRESSION:
Small to moderate right pleural effusion and tiny left pleural effusion with accompanying right lower lobe subsegmental atelectasis.
Approximate 2 cm right paratracheal mediastinal lymph node and some additional scattered subcentimeter mediastinal lymph nodes, nonspecific.
Coronary artery calcifications.
Small to moderate volume ascites in the abdomen and true pelvis.
Small bilateral simple renal cysts as well as additional subcentimeter low-attenuation right renal lesion too small to characterize.
No findings to suggest left-sided obstructive uropathy.
FINDINGS SUGGESTING MILD RIGHT-SIDED OBSTRUCTIVE UROPATHY at least in part possibly as a result of a large parapelvic right renal cyst.
Enlarged prostate gland impression upon the urinary bladder base.
Cath: 05/16/24
HEMODYNAMIC DATA
RA 23 mmHg
RV 73/15 (EDP 23) mmHg
PA 72/39 (mean 51) mmHg
PCWP 33 mmHg
CO/CI 3.3/1.7 L/min/m2
SVR 1619 dsc*-5
PVR 5.5 Wood units
LV 208/21 (EDP 40) mmHg
AO 124/63 (mean 89) mmHg
CORONARY ANGIOGRAPHY
Dominance: right
LM: normal
LAD: gives rise to a moderate caliber high rising D1, large D2, and small D3 before wrapping around the apex. There are mild luminal irregularities.
LCx: gives rise to a large OM1 and small OM2. There are mild luminal irregularities.
RCA: gives rise to a large RDPA and two large RPL branches. There are mild luminal irregularities.
CONCLUSIONS:
1. 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
2. Non-obstructive coronary artery disease in a right dominant system.
TTE, 05/15/24:
CONCLUSIONS
Moderately reduced left ventricular systolic function. Left ventricular
ejection fraction is 30%.
Global hypokinesis.
Mild/moderate mitral regurgitation. Mild mitral stenosis.
Severe aortic stenosis. Peak/mean gradients across the aortic valve are 60/38
mmHg, and increase to 172/102 mmHg post PVC.
Using an LVOT diameter of 2.0 cm the aortic valve by the Continuity equation is
calculated at 0.8 cm2. Mild/moderate eccentric aortic regurgitation.
Mildly enlarged right ventricular size. Normal right ventricular systolic
function.
Severe tricuspid regurgitation. Severely elevated PASP. Estimated pulmonary
artery pressure of 77 mmHg assuming a right atrial pressure of 15 mmHg.
Ectatic proximal ascending aorta measures 3.9 cm.
Physical Exam
Vital Signs/Labs
Vital Signs
Temp Pulse Resp BP Pulse Ox
36.3 C 88 20 92/55 97
05/24/24 03:03 05/24/24 03:03 05/24/24 03:03 05/24/24 03:03 05/24/24 03:03
05/22/24 05/23/24 05/24/24
11:59 11:59 11:59
Actual Weight 76.657 kg 73.227 kg 73.624 kg
05/24/24 07:36
PT 22.6 Sec (11.4-14.6) H 05/16/24 06:17
INR 1.97 05/16/24 06:17
Magnesium 1.6 mg/dl (1.6-2.3) 05/23/24 15:19
Triglycerides 89 mg/dl (10-149) 05/15/24 06:20
LDL Cholesterol, Calc 88 mg/dl 05/15/24 06:20
VLDL Cholesterol, Calc 17 mg/dl (0-30) 05/15/24 06:20
HDL Cholesterol 18 mg/dl 05/15/24 06:20
05/14/24
12:02
Vwe-[id number]-Qmrcauhsqvv Pept > 22275
Physical Exam
Constitutional: No acute distress and Comfortable
EENT: Anicteric and Moist mucous membranes
Cardiovascular: Rhythm & rate is regular, Pedal edema present, JVD present and Systolic murmur present
Respiratory: Respiratory effort normal, Lungs clear to auscul., Wheeze Absent, Crackles Absent and Rhonchi Absent
GI: Soft, Distention absent, Flat, Non tender and Normal bowel sounds
Neuro/Psych: AO x 3
Data Reviewed
-
Date of Service: May 24, 2024
Medical Decision Making: Reviewed Test Results, Independent Historian Assessment and Test Interpretation
EKG: Tracing Personally Visualized and interpreted and Report Reviewed by me
Echo: Tracing Personally Visualized and interpreted and Report Reviewed by me
X-Ray/CT/US/MRI/NUC/PET: Image Personally Visualized and interpreted, Report Reviewed by me and Discussed with Physician
Medical Tests (PFT, Pathology etc): Image Personally Visualized and interpreted, Report Reviewed by me and Discussed with Physician
Labs: Labs Reviewed by me and Labs Ordered by me
Old Records: Reviewed
[2024-05-24] MEDS: LASIX IV (08:32)
[2024-05-24] MEDS: MAGNESIUM SULFATE 50 IV (08:33)
[2024-05-24] MEDS: HEPARIN SC (08:39)
[2024-05-24] MEDS: LOW STRENGTH ASPIRIN PO (08:39)
[2024-05-24 08:52] LABS: ALT (SGPT) 268 U/L (0-50); AST (SGOT) 501 U/L (17-59); Albumin 3.2 g/dl (3.5-5.0); Alkaline Phosphatase 63 U/L (38-126); Blood Urea Nitrogen 69 mg/dl (9-20); Carbon Dioxide 37 mmol/L (22-30); Chloride 95 mmol/L (98-107); Estimated Creatinine Clearance 54 ml/min; Glucose 117 mg/dl (70-99); Potassium 3.9 mmol/L (3.5-5.1); Sodium 144 mmol/L (135-145); Total Protein 6.1 g/dl (6.3-8.2); eGFR > 60.00
[2024-05-24 09:37] LABS: Reticulocyte Count 2.5 % (0.4-2.8)
[2024-05-24 11:05] LABS: ALT (SGPT) 272 U/L (0-50); AST (SGOT) 512 U/L (17-59); Albumin 3.2 g/dl (3.5-5.0); Alkaline Phosphatase 62 U/L (38-126); Direct Bilirubin 1.2 mg/dl (0.0-0.4); LDH 964 U/L (120-246)
[2024-05-24 13:24] LABS: Hemoglobin 8.6 g/dL (13.0-18.0)
--- NOTE | 2024-05-24 13:52 | W.PN.HOSP.TC ---
Today's Communication/Plan
-
anemia work up
hold on tooth extraction, monitoring hgb, platelets, lfts
hold diuresis for today
Assessment / Plan
Assessment / Plan
#Acute decompensated HFrEF
#Severe aortic stenosis
#Severe pulmonary hypertension with TR
#PVCs
-TTE yesterday showed EF 30% with global hypokinesis, severe aortic stenosis with high gradient and JUDSON 0.8
-Suspect NICM with degree of valvular stenosis though cannot rule out ischemic disease, limited history
-Volume status is improving on Lasix regimen; Hold IV lasix; Plan to transition to PO furosemide s/p dental extractions.
-Started on beta-deion for GDMT, stopping due to bradycardia/hypotension;
-Outpatient TAVR workup: BMP 05/24, CT TAVR 06/03, CT surgery eval 06/11, dental clearance prior to TAVR
-Cardiology is following
-Start dietary restrictions with 2 g sodium, no added salt and 60 ounce fluid restriction
-Plan for TAVR as severe aortic stenosis prohibiting adequate diuresis
-Monitor on telemetry
-Tooth extraction as per dentistry (Holding due to anemia,lfts)
-CT surg consulted
# New onset atrial fibrillation with RVR
-Started on amiodarone, held due to transaminitis
� May need digoxin load
� Anticoagulation after confirming timing of teeth extraction - holding now due to anemia
#Anemia, acute v acute on on chronic
#Thrombocytopenia
-f/u iron labs, haptoglobin, ldh is high
-F/u Jessica, fibrinogen, D-Dimer, HIT
-retic wnl
-starting IV Iron
-Stool occult although stool is brown
-will need to monitor hgb once anticoag started
-heme consulted
#Obstructive uropathy on CT
-not seen on US
- ntd as per urology - can continue surgery planning
#Sinus opacity
-ENT consulted
#Severe TR
#Severe
-undergoing TAVR evaluation
--Consider inpatient evaluation/TAVR due to valvular stenosis prohibiting adequate diuresis
-Monitor with diuresis
#Hypokalemia
-monitor and replete
#PVC's, bigeminy, brief SVT
#Bifascicular block
-Continue metoprolol as above.
#Ascites around the liver
##Acute transaminitis
#Elevated T. bili
-suspect 2/2 to hepatic congestion
-monitor with diuresis
#Rash -- right sided extremities and torso, no pruritus; no target lesions
-less likely tick borne illness
-dc doxy
-if lyme serologies were positive would interpret as likely previous infection
#CKD 2
--monitor with diuresis
DVT prophylaxis: Heparin
Diet: Sodium and fluid restricted
CODE STATUS: Full code
Total time spent on today's encounter was 55 minutes which included time spent in counseling the patient/family regarding diagnosis and treatment plan as listed above, goals of care, and symptom management. Case was discussed with nursing staff,
specialists, and care coordinators/case management. All labs and imaging personally reviewed by me. Remainder the time spent in detailed review of previous records, lab data, imaging, and other medical provider documentation.
Anticipated Discharge: > 48 hours
Subjective/Interval History
-
Date of Service: May 24, 2024
no acute events, hgb and platelets dropping, lft rising.
Objective Data
-
Labs:
Laboratory Results
05/24/24 05/24/24 05/24/24
07:35 07:35 07:35
WBC
Hgb
Hct
Plt Count
Sodium 144
Potassium 3.9
Chloride 95 L
Carbon Dioxide 37 H
BUN 69 H
Creatinine 1.0
Glucose 117 H
Calcium 9.0
Total Bilirubin 2.0 H 2.0 H
AST 501 H* 512 H*
ALT 268 H
Alkaline Phosphatase
05/24/24 05/24/24 05/24/24
07:35 07:35 07:36
WBC 7.1
Hgb 8.3 L
Hct 26.0 L
Plt Count 113 L
Sodium
Potassium
Chloride
Carbon Dioxide
BUN
Creatinine
Glucose
Calcium
Total Bilirubin
AST
ALT 272 H
Alkaline Phosphatase 63 62
05/24/24
13:16
WBC
Hgb 8.6 L
Hct
Plt Count
Sodium
Potassium
Chloride
Carbon Dioxide
BUN
Creatinine
Glucose
Calcium
Total Bilirubin
AST
ALT
Alkaline Phosphatase
Vital Signs:
Vital Signs
Temp Pulse Resp BP Pulse Ox
98.9 F 94 18 95/58 97
05/24/24 11:07 05/24/24 11:07 05/24/24 11:07 05/24/24 11:07 05/24/24 11:07
I&O
05/23/24 05/24/24 05/25/24
06:59 06:59 06:59
Intake Total 840 / 840 240 / 240
Output Total 4750 / 4750 1750 / 1750
Balance -3910 / -3910 -1510 / -1510
Review of Systems
-
History Source: Patient
All other systems: Not reviewed unless documented
Physical Exam
-
General: Well Nourished, No Apparent Distress and Comfortable
HEENT: Normocephalic, Atraumatic, Moist Mucous Membranes and Anicteric
Respiratory: Clear to Auscultation and Non Labored Respirations; Negative Wheezes, Rales or Rhonchi
Cardiac: Irregular Rhythm, Murmur and JVD; Negative Rub or Gallop
GI: Soft, Nontender, Nondistended and Normal Bowel Sounds
Musculoskeletal: No Clubbing, No Cyanosis and Other (2+ lower extremity edema bilaterally)
Skin: Warm, Dry and Normal Turgor; Negative Rash or Jaundice
Neuro: AO x 3, Nonfocal/Grossly Intact and Central Nerve's Intact
Psych: Calm
Data Reviewed
-
Diagnostic Radiology: Image personally visualized and interpreted and Report Reviewed by me
Ultrasound: Image personally visualized and interpreted
Labs: Labs Reviewed by me
--- NOTE | 2024-05-24 13:53 | CON.ONC ---
Impression
Impression
CHF
severe
anemia
thrombocytopenia
Plan
Plan
1. Anemia - The etiology of this patient's anemia is unclear. It may be multifactorial - anemia of inflammation/ chronic disease. His hemoglobin has drifted down to 8-9g/dl during hospitalization. Reticulocyte count is normal lending against severe
hemolysis. His LFTs are elevated; apparently concern earlier in hospitalization for lyme disease as a potential etiology. Inflammatory process could be impacting erythropoiesis. Iron studies reveal borderline iron deficiency. He may benefit from
iron supplementation. Would check stools for occult blood; given his history of ETOH use he is at increased risk for GI bleed. GI consult could be considered. Check B12/ folic acid levels, SPEP w/ immunofixation, serum free light chain analysis.
2. Thrombocytopenia - The patient's platelet count has also drifted down during hospitalization. He had been on antibiotics as well as several other medications which can impact thrombopoiesis. Heparin is on hold w/ planned dental procedure. A HIT
ab is pending. Will check B12 /folic acid levels as above and follow CBC
Will continue to follow with you.
Patient History
History of Present Illness
79y/o male seen in consultation today regarding anemia.
The patient is currently admitted to [facility] w/ heart failure in the setting of severe , awaiting TAVR next week. He also has paroxysmal atrial fibrillation on anticoagulation, w/ anticoagulation now on hold for dental extractions prior to
TAVT.
CBC on presentation 05/14 revealed total WBC 12,900, hemoglobin 13.5g/dl, and platelet count 246,000. Hemoglobin has slowly drifted down during hospitalization to 11.6g/dl on 05/18 and now 8.6g/dl today. Iron studies reveal borderline iron deficiency
w/ low iron % saturation of 17% and ferritin of 85. Reticulocyte count is normal, lending against significant hemolysis. He has developed rise in LFTs. Bilirubin is 2 today w/ increased direct component. LDH is increased.
Clinically, he is tired. He has some SOB on exertion. No chest pain. No abdominal pain. No blood in his stool or urine.
Past-Medical/Surgical History
PMH:
CHF
severe
SH: h/o ETOH use disorder, no tobacco
FH: non-contributory
Allergies: NKDA
Patient Medication
�Medication �Instructions �Recorded �Confirmed �Last Taken �Type
No Meds [No Current Medications] 05/14/24 05/14/24 Unknown History
Active Medications
Generic Name Dose Route Start Last Admin
Trade Name Freq PRN Reason Stop Dose Admin
Acetaminophen 650 mg 05/16/24 18:01
Acetaminophen 325 Mg Tablet PO 06/13/24 18:00
Q4HPRN PRN
mild pain
Aspirin 81 mg 05/16/24 08:00 05/24/24 08:39
Aspirin 81 Mg Chewable Tablet PO 06/13/24 07:59 Not Given
DAILY PAULINO
Furosemide 40 mg 05/14/24 22:00 05/24/24 08:32
Furosemide 40 Mg (10 Mg/Ml) 4 Ml Vial IV 06/11/24 21:59 Not Given
BID AT 0800,1600 PAULINO
Amiodarone HCl 900 mg/ 518 mls @ 0 mls/hr 05/23/24 14:15 05/23/24 15:04
Dextrose/Water IV 518 mls
PER PROTOCOL PAULINO Administration
Protocol
Per Protocol
Sodium Chloride 0 flush 05/14/24 20:00 05/15/24 15:53
Sodium Chloride 0.9% (Flush) Syringe IV 06/11/24 19:59 1 flush
PER PROTOCOL PAULINO Administration
Review of Systems
-
A ROS was performed w/ pertinent findings as per HPI.
Physical Exam
-
General: Well Developed and No Apparent Distress
HEENT: Negative Jaundice
Cardiology: Normal Sinus Rhythm and Other (systolic murmur)
Pulmonary: Clear
GI: Soft
Neurology: Non Focal
Labs
Lab Results
WBC 7.1 10^3/uL (4.8-10.8) 05/24/24 07:36
RBC 3.00 10^6/uL (4.70-6.10) L 05/24/24 07:36
Hgb 8.6 g/dL (13.0-18.0) L 05/24/24 13:16
Hct 26.0 % (39.0-52.0) L 05/24/24 07:36
MCV 86.7 fL (80.0-94.0) 05/24/24 07:36
MCH 27.7 pg (27.0-31.0) 05/24/24 07:36
MCHC 31.9 g/dL (33.0-37.0) L 05/24/24 07:36
RDW 15.7 % (11.5-14.5) H 05/24/24 07:36
Plt Count 113 10^3/uL (130-400) L 05/24/24 07:36
MPV 10.7 fL (7.4-10.4) H 05/24/24 07:36
Abs Immat Gran (auto) 0.1 10^3/uL (0-0.05) H 05/24/24 07:36
Absolute Neuts (auto) 5.7 10^3/uL (1.4-6.5) 05/24/24 07:36
Absolute Lymphs (auto) 0.6 10^3/uL (1.2-3.4) L 05/24/24 07:36
Absolute Monos (auto) 0.7 10^3/uL (0.1-0.6) H 05/24/24 07:36
Absolute Eos (auto) 0.0 10^3/uL (0-0.7) 05/24/24 07:36
Absolute Basos (auto) 0.0 10^3/uL (0-0.2) 05/24/24 07:36
Immature Gran % 1.3 % (0-0.5) H 05/24/24 07:36
Neutrophils % 80.2 % (42.2-75.2) H 05/24/24 07:36
Lymphocytes % 9.0 % (20.5-51.1) L 05/24/24 07:36
Monocytes % 9.4 % (1.7-9.3) H 05/24/24 07:36
Eosinophils % 0.0 % (0-6) 05/24/24 07:36
Basophils % 0.1 % (0-2) 05/24/24 07:36
Creatinine 1.0 mg/dL (0.7-1.3) 05/24/24 07:35
Vital Signs
Vital Signs
Temp Pulse Resp BP Pulse Ox
98.9 F 94 18 95/58 97
05/24/24 11:07 05/24/24 11:07 05/24/24 11:07 05/24/24 11:07 05/24/24 11:07
[2024-05-24] MEDS: FERRLECIT 110 MG IV (15:55)
[2024-05-24 16:01] LABS: INR 1.44; PT 17.4 Sec (11.4-14.6)
[2024-05-24 16:03] LABS: APTT 34.5 Sec (23.4-35.0); Fibrinogen 226 MG/DL (199-459)
[2024-05-24 16:05] LABS: D-Dimer 1.27 ug/mlFEU (0.00-0.50)
[2024-05-24 17:14] LABS: Folate > 20.0 ng/ml (2.76-20)
[2024-05-24 18:50] LABS: Vitamin B12 846 pg/ml (239-931)
[2024-05-25] VITALS (7 sets, daily range): BP systolic 90–96; BP diastolic 51–60; BMI 25.0
[2024-05-25 03:36] LABS: Haptoglobin 104 mg/dL (30-200)
[2024-05-25 08:16] LABS: ALT (SGPT) 552 U/L (0-50); AST (SGOT) 1123 U/L (17-59); Albumin 3.3 g/dl (3.5-5.0); Alkaline Phosphatase 64 U/L (38-126); Blood Urea Nitrogen 81 mg/dl (9-20); Carbon Dioxide 32 mmol/L (22-30); Chloride 95 mmol/L (98-107); Estimated Creatinine Clearance 45 ml/min; Glucose 114 mg/dl (70-99); Potassium 3.5 mmol/L (3.5-5.1); Sodium 142 mmol/L (135-145); Total Bilirubin 2.6 mg/dl (0.2-1.3); Total Protein 6.1 g/dl (6.3-8.2); eGFR > 60.00
--- NOTE | 2024-05-25 08:22 | PTCARENOTE ---
Dr. Borrego notified via TT of abnormal labs this am.
[2024-05-25] MEDS: LOW STRENGTH ASPIRIN 81 MG PO (08:37)
--- NOTE | 2024-05-25 09:24 | CON.GI ---
Addendum entered and electronically signed by Nat Bob MD 05/25/24 14:03:
I saw and examined the patient.
The ANDROID UI DEVELOPER's note was reviewed and I agree with the note.
Comment: This is a 79-year-old male who had really not seen a physician for the past 16 years or so presented to the ER on 05/14 with shortness of breath and lower extremity edema and was diagnosed with severe and TR and CHF and has been on
diuretics and also diagnosed with PAF and was on amiodarone and is undergoing TAVR inpatient workup. We were consulted for anemia with a gradual drop in hemoglobin from 13.5-8.3 with low iron saturation but normal ferritin level. He says that
yesterday he had a small episode of dark stool was OB positive. No prior history of GI bleed never had a colonoscopy or endoscopy in the past. He is also undergoing hematology evaluation and was ruled out for hemolysis. He was also noted to have
abnormal LFTs with acute rise in LFTs yesterday and today. He viral hepatitis serologies and Lyme was negative liver appeared normal on ultrasound on 05/14
Assessment and plan 1 normocytic anemia with a gradual drop in hemoglobin and 1 episode of melena with OB positive stool yesterday. Does have a significantly elevated BUN with normal creatinine which could be related to possible upper GI bleed but
also has been on diuresis possible dehydration and has had hypotension so Lasix was discontinued today. Will need eventual endoscopy and colonoscopy once optimized currently being treated for CHF and has been hypotensive. for TAVR evaluation per
cardiology. will get a CT to rule out possible neoplasm but most likely etiology of bleed could be peptic ulcer disease versus angioectasias given severe .
2 abnormal LFTs with significant transaminitis with acute rise yesterday and today most likely multifactoral from possible congestive hepatopathy and also low flow state with hypotension with probable component of shock liver and also amiodarone
possible Dili( although I think this is less likely) amiodarone has been discontinued today. His blood pressure has been running low so his Lasix was discontinued and he is going to receive albumin today will trend LFTs. His liver appeared normal
on ultrasound his hepatitis serologies were negative Lyme antibody was also negative. Prior history of EtOH abuse but no cirrhosis noted on imaging.
Original Note:
Consultation
-
Date/Time Consultation Requested: 05/25/24 0830
Date/Time Consultation Performed: 05/25/24 1040
Requesting Provider: Andi Borrego MD
Performing Provider: KWAN You, Nat Bob MD
Reason for Consultation: anemia, elevated LFT's
Medical History
Chief Complaint / HPI
History of Present Illness:
Pt is a 79yo with hx former ETOH use but no significant history on admission but has not seen MD in december years with ER eval 05/14 with LE swelling, fatigue on admission concern for decompensated CHF with noted severe /TR, PAF, bifascicular block
with current TAVR work up. He is noted during admission with drop in hbg 13.5 down to 8.3 with some low iron sat 17 but stable ferritin and borderline iron deficiency per hematology with further work up with normal retic count less likely severe
hemolysis, and SPEP, light chain pending. He has also some drop in platelet to 113 during admission. He is also noted with persistent elevated LFT's with bili 2.6, d jose 0.9, AST 232, ALT 289, alk phos 78 with persistent elevation and further
rise to jose 2.6, AST 1123, ALT 552 and alk phos 64 in setting of diuresis. INR has been elevated up to 1.94 now down to 1.44. Hepatitis and lyme negative. CT prior to TAVR with small to mod right and tiny left effusion, 2 cm right partracheal lymph
node, small to moderae ascites, mild right obstructive uropathy with parapelvic renal cyst, enlarged prostate, US with b/l effusion. small volume ascites around liver, renal cyst.
In reviewing with patient he admits to nausea and decreased appetite with sense of gagging even with taking temperature. He complains of increased thirst. He also reports dark stool that was heme yesterday with some change in bowel pattern.
She denies dysphagia, odynophagia, GERD, or abdominal pain. No hx EGD/colonoscopy in past. No medication prior to admission. Almond Sorter meds or NSAIDs prior to admission. Pt also reports diffuse rash prior to admission.
Past Medical History
Past Medical History: Other (no medical problems prior to admission but admits to no MD care for years )
Social History
Tobacco: Other (second hand exposure for 10-15 year)
Alcohol: Former (admit to ETOH use in young years )
Drug: None
Living: Alone
Employment: Retired
Family History
Family History: Other (denies family hx GI issues )
Allergies / Home Medications
Allergy/AdvReac Type Severity Reaction Status Date / Time
No Known Allergies Allergy Unverified 05/14/24 11:56
�Medication �Instructions �Recorded
No Meds [No Current Medications] 05/14/24
Review of Systems
-
History Source: Patient
Constitutional: Reports Weight Loss (11 kg loss since admission ) and Fatigue
EENT: Reports Other (dry mouth )
Respiratory: Reports Trouble Breathing
Cardiac: Reports Chest Pain (on admission )
Abdomen/GI: Reports Nausea (decreased appetite ), Constipated and Other (change in bowel pattern, dark stools )
: Reports No Symptoms
Musculoskeletal: Reports No Symptoms
Skin: Reports Rash
Neurological: Reports Weakness
Endocrine: Reports No Symptoms
Hematologic/Lymphatic: Reports No Symptoms
Vital Signs
Temp Pulse Resp BP Pulse Ox
98.2 F 98 16 94/59 99
05/25/24 07:55 05/25/24 07:55 05/25/24 07:55 05/25/24 07:55 05/25/24 07:58
Physical Exam
Exam
General: Other (pale with some dyspnea at rest )
HEENT: Normocephalic and Anicteric
Respiratory: Clear
Cardiac: Regular Rhythm and Peripheral Edema (with edema up to lower abdomen in scrotal area )
GI: Soft, Non Tender and Non Distended
Rectal: Other (brown/black per nursing staff )
Musculoskeletal: No Clubbing and No Cyanosis
Skin: Rash
Neuro: Awake, Alert and AO x 3
Psych: Calm
Results
WBC 7.1 10^3/uL (4.8-10.8) 05/24/24 07:36
Hgb 8.6 g/dL (13.0-18.0) L 05/24/24 13:16
Hct 26.0 % (39.0-52.0) L 05/24/24 07:36
MCV 86.7 fL (80.0-94.0) 05/24/24 07:36
Plt Count 113 10^3/uL (130-400) L 05/24/24 07:36
Absolute Neuts (auto) 5.7 10^3/uL (1.4-6.5) 05/24/24 07:36
PT 17.4 Sec (11.4-14.6) H 05/24/24 15:42
INR 1.44 05/24/24 15:42
APTT 34.5 Sec (23.4-35.0) 05/24/24 15:42
Sodium 142 mmol/L (135-145) 05/25/24 04:57
Potassium 3.5 mmol/L (3.5-5.1) 05/25/24 04:57
Chloride 95 mmol/L (98-107) L 05/25/24 04:57
Carbon Dioxide 32 mmol/L (22-30) H 05/25/24 04:57
BUN 81 mg/dl (9-20) H 05/25/24 04:57
Creatinine 1.2 mg/dL (0.7-1.3) 05/25/24 04:57
Calcium 9.0 mg/dl (8.4-10.2) 05/25/24 04:57
Total Bilirubin 2.6 mg/dl (0.2-1.3) H 05/25/24 04:57
AST 1123 U/L (17-59) H* 05/25/24 04:57
ALT 552 U/L (0-50) H* 05/25/24 04:57
Alkaline Phosphatase 64 U/L (38-126) 05/25/24 04:57
Hepatitis A Ab Total Negative (Negative) 05/15/24 13:37
Hep Bs Antibody Negative 05/15/24 13:37
Hep B Core Total Ab Negative (Negative) 05/15/24 13:37
Hepatitis C Antibody Negative (Negative) 05/15/24 13:37
Diagnostic Image Results:
05/21 CT TAVR eval
IMPRESSION: Small to moderate right pleural effusion and tiny left pleural effusion with accompanying right lower lobe subsegmental atelectasis.
Approximate 2 cm right paratracheal mediastinal lymph node and some additional scattered subcentimeter mediastinal lymph nodes, nonspecific.
Coronary artery calcifications.
Small to moderate volume ascites in the abdomen and true pelvis.
Small bilateral simple renal cysts as well as additional subcentimeter low-attenuation right renal lesion too small to characterize.
No findings to suggest left-sided obstructive uropathy.
FINDINGS SUGGESTING MILD RIGHT-SIDED OBSTRUCTIVE UROPATHY at least in part possibly as a result of a large parapelvic right renal cyst.
Enlarged prostate gland impression upon the urinary bladder base.
Measurements for proposed TAVR procedure, to be added as a separate addendum.
05/14/24 US abdomen
1). Bilateral pleural effusions
2). Small volume ascites around the liver
3). Bilateral renal cysts measuring up to 6 cm
04/2024 Echo
Rhythm is sinus with PVC's in bigeminy.
Moderately reduced left ventricular systolic function. Left ventricular
ejection fraction is 30%.
Global hypokinesis.
Mild/moderate mitral regurgitation. Mild mitral stenosis.
Severe aortic stenosis. Peak/mean gradients across the aortic valve are 60/38
mmHg, and increase to 172/102 mmHg post PVC.
Using an LVOT diameter of 2.0 cm the aortic valve by the Continuity equation is
calculated at 0.8 cm2. Mild/moderate eccentric aortic regurgitation.
Mildly enlarged right ventricular size. Normal right ventricular systolic
function.
Severe tricuspid regurgitation. Severely elevated PASP. Estimated pulmonary
artery pressure of 77 mmHg assuming a right atrial pressure of 15 mmHg.
Ectatic proximal ascending aorta measures 3.9 cm.
05/16/24 cath
1. 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
2. Non-obstructive coronary artery disease in a right dominant system.
Prior GI Procedures:
EGD: none
Colonoscopy: none
Assessment / Plan
-
Pt is a 79yo with hx former ETOH use years ago but no significant history on admission but has not seen MD in december years with ER eval 05/14 with LE swelling, fatigue on admission concern for decompensated CHF with noted severe /TR, PAF,
bifascicular block with current TAVR work up. He is noted during admission with drop in hbg 13.5 down to 8.3 with some low iron sat 17 but stable ferritin and borderline iron deficiency per hematology with further work up with normal retic count
less likely severe hemolysis, and SPEP, light chain pending. He has also some drop in platelet to 113 during admission. He is also noted with persistent elevated LFT's with bili 2.6, d jose 0.9, AST 232, ALT 289, alk phos 78 with persistent
elevation and further rise to jose 2.6, AST 1123, ALT 552 and alk phos 64 in setting of diuresis. INR has been elevated up to 1.94 now down to 1.44. Hepatitis and lyme negative. CT prior to TAVR with small to mod right and tiny left effusion, 2 cm
right paratracheal lymph node, small to moderate ascites, mild right obstructive uropathy with parapelvic renal cyst, enlarged prostate, US with b/l effusion. small volume ascites around liver, renal cyst. No prior hx hepatitis or liver problems in
past.
- anemia with heme + stool with bordeline iron deficiency
-marked elevated LFT's with rise over last day
-decresaed appetite
-acute HFrEF with marked LE swelling, DELUCA and decresaed EF
-severe
-severe TR
-b/l effusion
-PAF
-bifascicular block
-ascites
-rash
-obstructive uropathy on imaging
-coagulopathy
-hypoalbuminemia
PLAN:
etiology of elevated LFT's related to hepatic congestion as liver appears normal on US, some minimal hypotension with BP to 70's on 05/19 not sure is shock liver component with acute rise
hepatitis neg, amiodarone gtt added 05/23 now held
cont diuresis per cardiology with Lasix now on hold
pt also concern for heme + stool with drop in hbg
ideally wll need EGD/colon if considering TAVR but will need cardiac optimization prior as still with significant LE edema and dyspnea at rest
appreciate heme input less likely hemolysis further work up pending
Pt anxious about multiple medical issues discussed continued course vs comfort as he did not seek medical care for years but wishes to continue with aggressive approach at this time
I tiger texted Dr. Berg and Dr. Rios with concern for multiple issue -- plan for albumin challenge to optimize BP, Amiodarone/lasix hold with close trend labs
-
-
-
Thank you for consultation and allowing me to participate in the patient's care. Please call the director investor relations GI physician during the after hours with any questions or concerns.
--- NOTE | 2024-05-25 10:53 | W.PN.CD ---
Today's Communication / Plan
-
- Hold Lasix and Amiodarone.
- Work up by Heme/GI
Impression / Plan
-
Impression/Plan: 79 yo male with no recent medical care (approx 16yrs) is admitted with HFrEF and rash/transaminitis concerning for a tick-borne illness.
#Acute, non-ischemic biventricular HFrEF
-Clinically stable but overall fluid overloaded.
-Difficult diuresis due to hypotension and severe aortic stenosis.
-Metoprolol stopped due to episodes of hypotension when combined with diuresis.
-Hold diuretics for now. Creatinine is rising.
-Transition to PO furosemide 40 mg daily, probably tomorrow.
-Monitor BP/renal function and add GDMT as hemodynamics will allow.
-Echo 05/15/2024: Severe LV systolic dysfunction with EF 30%, severe aortic stenosis with mean gradient 38 mmHg and 102 mmHg post PVC. Severe pulmonary hypertension, moderate MR
-Cardiac cath 05/16/2024: Severely elevated biventricular filling pressure. Severe pulmonary hypertension, nonobstructive coronary artery disease. Severely reduced cardiac output
#Severe :
-New diagnosis but chronic.
-Undergoing inpatient TAVR evaluation.
-Dentistry planning for extractions today under local anesthesia.
-Incidental findings on CTA have been investigated (urology, ENT), no further workup indicated.
-Depending on his ability to stabilize, we will continue to evaluate for TAVR (inpatient vs. expedited outpatient).
#Severe TR:
-New diagnosis.
-Associated with elevated filling pressure as well as severe pulmonary hypertension
-RV enlargement likely leading to functional TR.
-Reassess after diuresis.
#Paroxysmal atrial fibrillation
-New diagnosis.
-Currently in NSR.
-Rate/rhythm control with amiodarone gtt as needed.
-CHADS2-Vasc = 3 (CHF, Age x2).
-Therapeutic anticoagulation on hold for dental and liver failure
-Question the need for filler leaf cutter long AC given electrolyte disturbance/diuresis as a mechanism for short lived AF.
#Bifascicular block
-New diagnosis, but stable.
# Acute liver failure / transaminitis
-Patient is jaundiced, anemic and LFTs are rising again.
-Precipitating factors include, alcoholic hepatitis, severe tricuspid regurgitation, amiodarone toxicity,
-Given other factors including severe anemia, thrombocytopenia, frequent myocardial ectopy suggestive of myocarditis, and acute liver injury with elevated bilirubin and transaminitis is all likely accumulation of autoimmune insult. Other factors
are likely precipitating these events
-GI and hematology is on board
Subjective/Interval History:
Off the amiodarone drip. Currently in sinus rhythm with frequent PACs and PVCs.
DATA:
Orthopantogram, 05/21/2024:
FINDINGS and IMPRESSION:
Evaluation is overall limited as a result of some streak artifact.
There are numerous missing mandibular teeth.
There are no gross findings to suggest focal mandibular cortical bony destructive process.
CTA chest/abdomen/pelvis, 05/21/2024:
IMPRESSION:
Small to moderate right pleural effusion and tiny left pleural effusion with accompanying right lower lobe subsegmental atelectasis.
Approximate 2 cm right paratracheal mediastinal lymph node and some additional scattered subcentimeter mediastinal lymph nodes, nonspecific.
Coronary artery calcifications.
Small to moderate volume ascites in the abdomen and true pelvis.
Small bilateral simple renal cysts as well as additional subcentimeter low-attenuation right renal lesion too small to characterize.
No findings to suggest left-sided obstructive uropathy.
FINDINGS SUGGESTING MILD RIGHT-SIDED OBSTRUCTIVE UROPATHY at least in part possibly as a result of a large parapelvic right renal cyst.
Enlarged prostate gland impression upon the urinary bladder base.
Cath: 05/16/24
HEMODYNAMIC DATA
RA 23 mmHg
RV 73/15 (EDP 23) mmHg
PA 72/39 (mean 51) mmHg
PCWP 33 mmHg
CO/CI 3.3/1.7 L/min/m2
SVR 1619 dsc*-5
PVR 5.5 Wood units
LV 208/21 (EDP 40) mmHg
AO 124/63 (mean 89) mmHg
CORONARY ANGIOGRAPHY
Dominance: right
LM: normal
LAD: gives rise to a moderate caliber high rising D1, large D2, and small D3 before wrapping around the apex. There are mild luminal irregularities.
LCx: gives rise to a large OM1 and small OM2. There are mild luminal irregularities.
RCA: gives rise to a large RDPA and two large RPL branches. There are mild luminal irregularities.
CONCLUSIONS:
1. 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
2. Non-obstructive coronary artery disease in a right dominant system.
TTE, 05/15/24:
CONCLUSIONS
Moderately reduced left ventricular systolic function. Left ventricular
ejection fraction is 30%.
Global hypokinesis.
Mild/moderate mitral regurgitation. Mild mitral stenosis.
Severe aortic stenosis. Peak/mean gradients across the aortic valve are 60/38
mmHg, and increase to 172/102 mmHg post PVC.
Using an LVOT diameter of 2.0 cm the aortic valve by the Continuity equation is
calculated at 0.8 cm2. Mild/moderate eccentric aortic regurgitation.
Mildly enlarged right ventricular size. Normal right ventricular systolic
function.
Severe tricuspid regurgitation. Severely elevated PASP. Estimated pulmonary
artery pressure of 77 mmHg assuming a right atrial pressure of 15 mmHg.
Ectatic proximal ascending aorta measures 3.9 cm.
Physical Exam
Vital Signs/Labs
Vital Signs
Temp Pulse Resp BP Pulse Ox
98.2 F 98 16 94/59 99
05/25/24 07:55 05/25/24 07:55 05/25/24 07:55 05/25/24 07:55 05/25/24 07:58
05/24/24 05/25/24 05/26/24
06:59 06:59 06:59
Actual Weight 73.624 kg 72.32 kg
05/24/24 13:16
05/25/24 04:57
PT 17.4 Sec (11.4-14.6) H 05/24/24 15:42
INR 1.44 05/24/24 15:42
APTT 34.5 Sec (23.4-35.0) 05/24/24 15:42
Magnesium 1.6 mg/dl (1.6-2.3) 05/23/24 15:19
Triglycerides 89 mg/dl (10-149) 05/15/24 06:20
LDL Cholesterol, Calc 88 mg/dl 05/15/24 06:20
VLDL Cholesterol, Calc 17 mg/dl (0-30) 05/15/24 06:20
HDL Cholesterol 18 mg/dl 05/15/24 06:20
05/14/24
12:02
Tsk-O-Fwwmrteaxpt Pept > 23131
Physical Exam
Constitutional: No acute distress, Comfortable and Other (Jaundiced. )
EENT: Anicteric and Moist mucous membranes
Cardiovascular: Rhythm/rate is irregular (sinus with PVCs), Pedal edema present, JVD present and Systolic murmur present
Respiratory: Respiratory effort normal and Crackles Present
GI: Soft and Non tender
Neuro/Psych: Alert, Oriented, AO x 3, Motor deficits absent and Other (Confused and forgetful)
Data Reviewed
-
Date of Service: May 25, 2024
Medical Decision Making: Reviewed Test Results, Independent Historian Assessment and Test Interpretation
Labs: Labs Reviewed by me
Old Records: Reviewed
[2024-05-25] MEDS: FLEXBUMIN 100 IV ×2 (12:23→20:01)
[2024-05-25] MEDS: FLUSH (NSS) 1 FLUSH IV ×3 (12:24→16:55)
--- NOTE | 2024-05-25 12:52 | CM ---
CM following for discharge. TAVR being considered at a later date after patient has dental work completed.
Plan: Discharge to home with no needs at this time.
--- NOTE | 2024-05-25 13:00 | W.PN.HOSP.TC ---
Today's Communication/Plan
-
albumin, metolazone for diuresis and medical optimization prior to EGD/[place]
Trend LFTs, CBC, BMP
Assessment / Plan
Assessment / Plan
#Acute decompensated HFrEF
#Severe aortic stenosis
#Severe pulmonary hypertension with TR
#PVCs
-TTE yesterday showed EF 30% with global hypokinesis, severe aortic stenosis with high gradient and JUDSON 0.8
-Suspect NICM with degree of valvular stenosis though cannot rule out ischemic disease, limited history
-Volume status is improving on Lasix regimen; Hold IV lasix; due to lower perfusion levels, and was planning on starting back once dental extractions occurred
--Trial Albumin, metolazone today to possibly medically optimize for EGD/[place]; consider dopapine ggt if suboptimal diuresis
-Started on beta-deion for GDMT, stopping due to bradycardia/hypotension;
-Outpatient TAVR workup: BMP 05/24, CT TAVR 06/03, CT surgery eval 06/11, dental clearance prior to TAVR
-Cardiology is following
-Start dietary restrictions with 2 g sodium, no added salt and 60 ounce fluid restriction
-Plan for TAVR as severe aortic stenosis prohibiting adequate diuresis
-Monitor on telemetry
-Tooth extraction as per dentistry (Holding due to anemia,lfts)
-CT surg consulted
# New onset atrial fibrillation with RVR, currently in NSR
- amiodarone, held due to transaminitis
-holding antiarrythmic at this time due to possibility of electrolytes/stenosis causing afib
� Anticoagulation after confirming timing of teeth extraction - holding now due to anemia
#Anemia, acute v acute on on chronic
#Thrombocytopenia
-iron low - start IV iron
-retic wnl
--LDH High, haptoglobin WNL
-Bilis high - as per heme, no obvious Schistocytes on smear
-folate, b12 wnl
-Stool occult although stool is brown
-will need to monitor hgb once anticoag started
-heme consulted
-Now stool darker - consulted GI for EGD/[place] - suspect angiectasias
##Acute transaminitis
#Elevated T. bili
-suspect 2/2 to hepatic congestion + superimposed hepatic insult - unclear if due to amiodarone v other. doubt shock liver due as BP remains stable albeit lower
-monitor with diuresis, off amiodarone
-GI Consulted
#Ascites around the liver
#Obstructive uropathy on CT
-not seen on US
- ntd as per urology - can continue surgery planning
#Sinus opacity
-ENT consulted
#Severe TR
#Severe
-undergoing TAVR evaluation
--Consider inpatient evaluation/TAVR due to valvular stenosis prohibiting adequate diuresis
-Monitor with diuresis
#Hypokalemia
-monitor and replete
#PVC's, bigeminy, brief SVT
#Bifascicular block
-Continue metoprolol as above.
#Rash -- right sided extremities and torso, no pruritus; no target lesions
-less likely tick borne illness
-dc doxy
-if lyme serologies were positive would interpret as likely previous infection
#CKD 2
--monitor with diuresis
DVT prophylaxis: Heparin
Diet: Sodium and fluid restricted
CODE STATUS: Full code
Total time spent on today's encounter was 53 minutes which included time spent in counseling the patient/family regarding diagnosis and treatment plan as listed above, goals of care, and symptom management. Case was discussed with nursing staff,
specialists, and care coordinators/case management. All labs and imaging personally reviewed by me. Remainder the time spent in detailed review of previous records, lab data, imaging, and other medical provider documentation.
Anticipated Discharge: > 48 hours
Subjective/Interval History
-
Date of Service: May 25, 2024
Patient nauseous although has been constant�unchanged, otherwise hemodynamically stable
Objective Data
-
Labs:
Laboratory Results
05/25/24
04:57
Sodium 142
Potassium 3.5
Chloride 95 L
Carbon Dioxide 32 H
BUN 81 H
Creatinine 1.2
Glucose 114 H
Calcium 9.0
Total Bilirubin 2.6 H
AST 1123 H*
ALT 552 H*
Alkaline Phosphatase 64
Vital Signs:
Vital Signs
Temp Pulse Resp BP Pulse Ox
98.1 F 64 16 90/56 97
05/25/24 12:03 05/25/24 12:03 05/25/24 12:03 05/25/24 12:03 05/25/24 12:03
I&O
05/24/24 05/25/24 05/26/24
06:59 06:59 06:59
Intake Total 240 / 240 1380 / 1380
Output Total 1750 / 1750 1375 / 1375
Balance -1510 / -1510 5 / 5
Review of Systems
-
History Source: Patient
All other systems: Not reviewed unless documented
Physical Exam
-
General: Well Nourished, No Apparent Distress and Comfortable
HEENT: Normocephalic, Atraumatic, Moist Mucous Membranes and Anicteric
Respiratory: Clear to Auscultation and Non Labored Respirations; Negative Wheezes, Rales or Rhonchi
Cardiac: Irregular Rhythm, Murmur and JVD; Negative Rub or Gallop
GI: Soft, Nontender, Nondistended and Normal Bowel Sounds
Musculoskeletal: No Clubbing, No Cyanosis and Other (2+ lower extremity edema bilaterally)
Skin: Warm, Dry and Normal Turgor; Negative Rash or Jaundice
Neuro: AO x 3, Nonfocal/Grossly Intact and Central Nerve's Intact
Psych: Calm
Data Reviewed
-
Diagnostic Radiology: Image personally visualized and interpreted and Report Reviewed by me
Ultrasound: Image personally visualized and interpreted
Labs: Labs Reviewed by me
--- NOTE | 2024-05-25 14:20 | PTCARENOTE ---
Pt voiding small amts; denies urgency/discomfort. Voided 150 ml clear deepika urine; bladder scanned for [address] Borrego notified. Will continue to monitor.
[2024-05-25] MEDS: FERRLECIT 110 MG IV (14:28)
[2024-05-25] MEDS: ZAROXOLYN 5 MG PO (14:28)
[2024-05-25] MEDS: OMNIPAQUE 50 ML PO (14:59)
--- NOTE | 2024-05-25 16:19 | PTCARENOTE ---
Pt AAO x3, forgetful a times. COLLIER; sits on edge of bed; refuses OOB to chair activity- 'too tired'. Pt very weak; tires with minimal activity. VSS. Telemetry; currently NSR/sinus tachy at times with BBC; occ PAC's/PVC's; bigeminy. Pt with +2
pitting edema legs/feet; needs frequent reminders to keep legs elevated; pt stated they are 'too heavy' to lift. On room air- pulse ox 99%, pt with (+) DELUCA; denies SOB. Abd large, soft; javier clear liquids; reinforced 1800 ml fluid restriction; pt
frequently asking for fluids. Pt awaiting CT scan of abd. Voiding small amts clear deepika urine in urinal; denies discomfort; Dr. Borrego notified earlier re: pt voiding and PVR results. Skin pale/ashen; multiple abrasions/reddened area on
trunk/extremities; large ecchymotic areas on abd, Rt arm. Resting in bed at present. Will continue to monitor.
[2024-05-25] MEDS: ATIVAN 0.5 MG IV (16:54)
[2024-05-25] MEDS: NSS (PRESERVATIVE FREE) 0.25 ML IV (16:54)
[2024-05-25 23:07] LABS: Glucose - Point of Care 108 mg/dl (70-99)
[2024-05-25 23:42] LABS: INR 2.46; PT 26.5 Sec (11.4-14.6)
[2024-05-25 23:43] LABS: APTT 42.8 Sec (23.4-35.0)
[2024-05-25 23:44] LABS: Hematocrit 21.9 % (39.0-52.0); Mean Corpuscular Hgb 27.8 pg (27.0-31.0); Mean Corpuscular Volume 86.9 fL (80.0-94.0); Mean Platelet Volume 11.8 fL (7.4-10.4); Platelet Count 143 10^3/uL (130-400); Red Blood Cell Count 2.52 10^6/uL (4.70-6.10); Red Cell Dist. Width 16.9 % (11.5-14.5)
[2024-05-25 23:52] LABS: NT-proBNP > 27000 pg/ml
[2024-05-25 23:55] LABS: Blood Urea Nitrogen 93 mg/dl (9-20); Carbon Dioxide 20 mmol/L (22-30); Chloride 94 mmol/L (98-107); Estimated Creatinine Clearance 34 ml/min; Glucose 89 mg/dl (70-99); eGFR 43.02
[2024-05-26] VITALS (23 sets, daily range): BP systolic 84–107; BP diastolic 28–76; BMI 25.4; BMI 25.2
[2024-05-26 00:05] LABS: Calcium 9.4 mg/dl (8.4-10.2); Potassium 3.8 mmol/L (3.5-5.1); Sodium 143 mmol/L (135-145)
[2024-05-26 00:48] LABS: % Basophils 0.3 % (0-2); % Lymphocytes 5.5 % (20.5-51.1); % Monocytes 5.1 % (1.7-9.3); % Neutrophils 84.1 % (42.2-75.2); Absolute Basophils 0.1 10^3/uL (0-0.2); Absolute Lymphocytes 1.1 10^3/uL (1.2-3.4); Absolute Monocytes 1.1 10^3/uL (0.1-0.6); Absolute Neutrophils 17.3 10^3/uL (1.4-6.5); Hematocrit 21.8 % (39.0-52.0); Mean Corp Hgb Conc. 32.1 g/dL (33.0-37.0); Mean Corpuscular Hgb 28.7 pg (27.0-31.0); Mean Corpuscular Volume 89.3 fL (80.0-94.0); Nucleated Red Blood Cells % 5.1 % (-); Platelet Count 126 10^3/uL (130-400); Red Blood Cell Count 2.44 10^6/uL (4.70-6.10); Red Cell Dist. Width 16.6 % (11.5-14.5); White Blood Cell Count 20.6 10^3/uL (4.8-10.8)
--- NOTE | 2024-05-26 01:54 | W.PN.UPDATE ---
Update Note
Progress Note Update
Rapid Response
Patient was being helped getting OOB then he became flaccid and confused. Patient helped back to bed. VS 97.9 HR 103 RR 24 BP 93/57 96%RA. Upon assessment, patient AAOX3, denies pain, chest pain, and sob. Patient reports feeling weak. Patient noted
being pale and tachypneic. Per nursing patient had explosive diarrhea this evening. STAT CBC noted for Hgb 7.0 (<8.6<8.3<9.9<11.3), declining over days. WBC also elevated at 20.6 - no acute symptoms of infection at this time. Rx 1U PRBC. Nursing to
monitor respiratory status due to his CHF status.
--- NOTE | 2024-05-26 03:15 | PTCARENOTE ---
2244: Pt found trying to get OOB to urinate. Pt seems confused, flaccid, pale, SOB. Pt placed back in bed, very weak, made uncomprehending statements. Pt had a large black stool earlier (around 0467-0965). Pt had Abd/pelvis CT w/contrast
earlier. A rapid response was called. Pt has been tachycardic, HR=747, RR=24, BP=93/57, SpO2=96% on RA. TU=814. EKG w/S. Tachycardia. Pt Hgb came back=7. 1 unit of PRBcs ordered and infusing with no issue. Pt continues to be tachycardic, restless.
Will get a UA w/reflex to cx as per order. Bed alarm in place for pt safety. Will continue to monitor the pt.
--- NOTE | 2024-05-26 03:23 | RR ---
A Rapid Response was called on this patient, please see Rapid Response form.
[2024-05-26] MEDS: FLEXBUMIN 100 IV (06:30)
--- NOTE | 2024-05-26 06:30 | PTCARENOTE ---
Pt unit of blood completed at 0615 with no issues. Pt's TP=517/61, KU=379. Pt was not able to void on his own. Bladder scan =323. Straight cath the pt for 400cc of tea color urine. Urine sample sent.
[2024-05-26 06:49] LABS: Urine Albumin Trace (Neg - Trace); Urine Bilirubin 1+ (Negative); Urine Character Clear (Clear); Urine Color Amber; Urine Glucose Negative (Negative); Urine Ketone Trace (Negative); Urine Leukocyte Negative (Negative); Urine Nitrite Negative (Negative); Urine Occult Blood Trace (Negative); Urine Urobilinogen 2+ (Neg - 1+)
[2024-05-26 06:59] LABS: Urine Hyaline Cast >15 /LPF (0-2)
[2024-05-26 07:02] LABS: Urine Amorphous Seen; Urine Bacteria Moderate (Negative)
[2024-05-26] MEDS: DEXTROSE 50% SYRINGE 12.5 GRAMS IV ×2 (07:30→10:06)
[2024-05-26 07:32] LABS: Glucose - Point of Care 32 mg/dl (70-99)
[2024-05-26 07:32] LABS: Glucose - Point of Care 31 mg/dl (70-99)
[2024-05-26 07:32] LABS: Glucose - Point of Care 32 mg/dl (70-99)
[2024-05-26 07:41] LABS: Glucose - Point of Care 105 mg/dl (70-99)
[2024-05-26] MEDS: LANOXIN 125 MCG IV (07:59)
--- NOTE | 2024-05-26 08:03 | PTCARENOTE ---
Pt HR in the 150s, BP=84/56. Pt lethargic. The unit of blood was just completed at 0615. BD=31 and 32. Dextrose given. Repeat BP=86/56, HP=336P. Pt is transferred to IMU.
--- NOTE | 2024-05-26 08:07 | RR ---
A Rapid Response was called on this patient, please see Rapid Response form.
--- NOTE | 2024-05-26 08:42 | PTCARENOTE ---
07:50 patient transfer from Rapid Response 4th floor room 402/2. Chief complain change of mental status, Hypoglycemia of blood sugar 32; Blood pressure SBP on mid 70's. During Rapid Dextrose 12.5 administered with blood sugar re-check WNL.
patient transfer to ICU level of care per orders of pt's primary provider.
In ICU BP via Rt uppeer arm 99/47 (MAP 86)ST 102; Rectal temp 99.4; POX 100%2L via nasal canula. Patient awake and confused . c/o of lowerback pain unable to grade pain . Abdomen round distended. Have not voided at this time . Bladder scanned 18cc.
ECG done during rapid. Labs coagulants, CMP, Mg phos, amonia level send results pending . Digoxin adm at 07:59. chest XRay done results pending
At this time pt bp 92/81 MAP 86; ST 102; . HOB elevated . call todd within reach. Bed alarm activated for safety
[2024-05-26 08:49] LABS: Hematocrit 23.6 % (39.0-52.0); Hemoglobin 7.5 g/dL (13.0-18.0); Mean Corp Hgb Conc. 31.8 g/dL (33.0-37.0); Mean Corpuscular Hgb 27.9 pg (27.0-31.0); Mean Corpuscular Volume 87.7 fL (80.0-94.0); Mean Platelet Volume 11.8 fL (7.4-10.4); Platelet Count 143 10^3/uL (130-400); Red Blood Cell Count 2.69 10^6/uL (4.70-6.10); Red Cell Dist. Width 17.1 % (11.5-14.5); White Blood Cell Count 28.2 10^3/uL (4.8-10.8)
--- NOTE | 2024-05-26 08:55 | W.PN.CD ---
Today's Communication / Plan
-
- For AFL/AT, can give IV amiodarone if not controlling rates with hypotension.
- With ARF, would avoid any additional Digoxin.
- BP support with pressors as needed. OK to give Phenylephrine to keep mean above 60 mmHg.
Impression / Plan
-
Impression/Plan: 79 yo male with no recent medical care (approx 16yrs) is admitted with HFrEF and rash/transaminitis with progressive multiorgan failure
# Multi organ failure
- Severe systolic dysfunction, Acute liver failure, and renal failure, Anemia, Altered mental status.
- Severe aortic stenosis limiting diuresis with venous congestion.
- Albumin given.
- Lasix and Metolazone held now.
- LFTs are rising.
- Tachycardia with ST and SVT - Digoxin given this AM and improved
- Transferred to ICU
- sinus tachycardia - treat underlying issues.
- For AFL/AT, can give IV amiodarone if not controlling rates with hypotension.
- With ARF, would avoid any additional Digoxin.
- BP support with pressors as needed. OK to give Phenylephrine to keep mean above 60 mmHg.
- Prognosis is guarded.
# Acute liver failure / transaminitis
-Patient is jaundiced, anemic and LFTs are rising again.
-Precipitating factors include, alcoholic hepatitis, severe tricuspid regurgitation. No sign of severe hypotension. Probably not shock liver.
-Given other factors including severe anemia, thrombocytopenia, frequent myocardial ectopy suggestive of myocarditis, and acute liver injury with elevated bilirubin and transaminitis are all likely accumulation of autoimmune insult. Other factors
are likely precipitating these events
-GI and hematology is on board
#Acute, non-ischemic biventricular HFrEF
-Newly identified. Unknown duration.
-LVEF 30%. Mod MR, Severe TR and severe .
-fluid overloaded and clinically deteriorating.
-Difficult diuresis due to hypotension and severe aortic stenosis.
-Metoprolol stopped due to episodes of hypotension when combined with diuresis.
-Hold diuretics for now. Creatinine is rising now.
-Monitor BP/renal function and add GDMT as hemodynamics will allow.
-Echo 05/15/2024: Severe LV systolic dysfunction with EF 30%, severe aortic stenosis with mean gradient 38 mmHg and 102 mmHg post PVC. Severe pulmonary hypertension, moderate MR
-Cardiac cath 05/16/2024: Severely elevated biventricular filling pressure. Severe pulmonary hypertension, nonobstructive coronary artery disease. Severely reduced cardiac output
#Severe :
-New diagnosis but chronic.
-Undergoing inpatient TAVR evaluation.
-Dentistry tried extractions under local anesthesia but pt was too sick for the procedure.
-Incidental findings on CTA have been investigated (urology, ENT), no further workup indicated.
-Depending on his ability to stabilize, we will continue to evaluate for TAVR (inpatient vs. expedited outpatient).
#Severe TR:
-New diagnosis.
-Associated with elevated filling pressure as well as severe pulmonary hypertension
-RV enlargement likely leading to functional TR.
-Reassess after diuresis.
#Paroxysmal atrial fibrillation
-New diagnosis.
-Currently in NSR.
-Rate/rhythm control with amiodarone gtt as needed.
-CHADS2-Vasc = 3 (CHF, Age x2).
-Therapeutic anticoagulation on hold for dental and liver failure
-Question the need for long-term AC given electrolyte disturbance/diuresis as a mechanism for short lived AF.
#Bifascicular block
-New diagnosis, but stable.
Subjective/Interval History:
Atrial tachycardia this AM with possible AF. Multiorgan failure and transferred to ICU.
DATA:
Orthopantogram, 05/21/2024:
FINDINGS and IMPRESSION:
Evaluation is overall limited as a result of some streak artifact.
There are numerous missing mandibular teeth.
There are no gross findings to suggest focal mandibular cortical bony destructive process.
CTA chest/abdomen/pelvis, 05/21/2024:
IMPRESSION:
Small to moderate right pleural effusion and tiny left pleural effusion with accompanying right lower lobe subsegmental atelectasis.
Approximate 2 cm right paratracheal mediastinal lymph node and some additional scattered subcentimeter mediastinal lymph nodes, nonspecific.
Coronary artery calcifications.
Small to moderate volume ascites in the abdomen and true pelvis.
Small bilateral simple renal cysts as well as additional subcentimeter low-attenuation right renal lesion too small to characterize.
No findings to suggest left-sided obstructive uropathy.
FINDINGS SUGGESTING MILD RIGHT-SIDED OBSTRUCTIVE UROPATHY at least in part possibly as a result of a large parapelvic right renal cyst.
Enlarged prostate gland impression upon the urinary bladder base.
Cath: 05/16/24
HEMODYNAMIC DATA
RA 23 mmHg
RV 73/15 (EDP 23) mmHg
PA 72/39 (mean 51) mmHg
PCWP 33 mmHg
CO/CI 3.3/1.7 L/min/m2
SVR 1619 dsc*-5
PVR 5.5 Wood units
LV 208/21 (EDP 40) mmHg
AO 124/63 (mean 89) mmHg
CORONARY ANGIOGRAPHY
Dominance: right
LM: normal
LAD: gives rise to a moderate caliber high rising D1, large D2, and small D3 before wrapping around the apex. There are mild luminal irregularities.
LCx: gives rise to a large OM1 and small OM2. There are mild luminal irregularities.
RCA: gives rise to a large RDPA and two large RPL branches. There are mild luminal irregularities.
CONCLUSIONS:
1. 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
2. Non-obstructive coronary artery disease in a right dominant system.
TTE, 05/15/24:
CONCLUSIONS
Moderately reduced left ventricular systolic function. Left ventricular
ejection fraction is 30%.
Global hypokinesis.
Mild/moderate mitral regurgitation. Mild mitral stenosis.
Severe aortic stenosis. Peak/mean gradients across the aortic valve are 60/38
mmHg, and increase to 172/102 mmHg post PVC.
Using an LVOT diameter of 2.0 cm the aortic valve by the Continuity equation is
calculated at 0.8 cm2. Mild/moderate eccentric aortic regurgitation.
Mildly enlarged right ventricular size. Normal right ventricular systolic
function.
Severe tricuspid regurgitation. Severely elevated PASP. Estimated pulmonary
artery pressure of 77 mmHg assuming a right atrial pressure of 15 mmHg.
Ectatic proximal ascending aorta measures 3.9 cm.
Physical Exam
Vital Signs/Labs
Vital Signs
Temp Pulse Resp BP Pulse Ox
97.9 F 145 20 106/61 98
05/26/24 06:15 05/26/24 07:59 05/26/24 06:15 05/26/24 06:15 05/26/24 06:15
05/25/24 05/26/24 05/27/24
06:59 06:59 06:59
Actual Weight 72.32 kg 73.618 kg
05/26/24 08:24
PT 26.5 Sec (11.4-14.6) H 05/25/24 23:20
INR 2.46 05/25/24 23:20
APTT 42.8 Sec (23.4-35.0) H 05/25/24 23:20
Magnesium 1.6 mg/dl (1.6-2.3) 05/23/24 15:19
Triglycerides 89 mg/dl (10-149) 05/15/24 06:20
LDL Cholesterol, Calc 88 mg/dl 05/15/24 06:20
VLDL Cholesterol, Calc 17 mg/dl (0-30) 05/15/24 06:20
HDL Cholesterol 18 mg/dl 05/15/24 06:20
05/14/24 05/25/24
12:02 23:20
[id number]-Cwfpcdaibqi Pept > 54745 > 74625
Physical Exam
Constitutional: Comfortable and Confusion
EENT: Anicteric and Moist mucous membranes
Cardiovascular: Rhythm & rate is regular, Pedal edema present, JVD present, Systolic murmur present and Diastolic murmur present
Respiratory: Respiratory effort normal and Crackles Present
GI: Soft and Non tender
Neuro/Psych: Alert, Motor deficits absent and Other (confused. )
Other: Skin (Jaundiced. )
Data Reviewed
-
Date of Service: May 26, 2024
Medical Decision Making: Reviewed Test Results, Independent Historian Assessment, Test Interpretation and Review of Case with other Provider
EKG: Tracing Personally Visualized and interpreted
Echo: Report Reviewed by me
X-Ray/CT/US/MRI/NUC/PET: Image Personally Visualized and interpreted
Labs: Labs Reviewed by me
Old Records: Reviewed
Critical Care Time (in minutes): 65
[2024-05-26 08:57] LABS: INR 3.77; PT 37.3 Sec (11.4-14.6)
[2024-05-26 09:07] LABS: Ammonia 12 umol/L (9-30)
[2024-05-26 09:17] LABS: Lactic Acid 20.4 mmol/L (0.7-2.0)
[2024-05-26 09:59] LABS: Alkaline Phosphatase 45 U/L (38-126); Blood Urea Nitrogen 100 mg/dl (9-20); Calcium 9.3 mg/dl (8.4-10.2); Carbon Dioxide 13 mmol/L (22-30); Chloride 94 mmol/L (98-107); Direct Bilirubin 3.6 mg/dl (0.0-0.4); Estimated Creatinine Clearance 25 ml/min; Glucose 50 mg/dl (70-99); Magnesium 2.4 mg/dl (1.6-2.3); Phosphorus 5.7 mg/dl (2.5-4.5); Sodium 143 mmol/L (135-145); Total Bilirubin 5.6 mg/dl (0.2-1.3); Total Protein 6.2 g/dl (6.3-8.2); eGFR 29.36
[2024-05-26 10:04] LABS: ALT (SGPT) 1183 U/L (0-50)
--- NOTE | 2024-05-26 10:09 | PTCARENOTE ---
Glucose on chemistry was 50, accu check was 56, half ampule of Dextrose 50% was adminsitered as ordered. Dr Wyman was present in the room at the time. Dr. Borrego was notified as well.
--- NOTE | 2024-05-26 10:11 | CON.INTV ---
Consultation
Consultation Request
Date/Time Consultation Requested: 05/26/2024 - 934
Date/Time Consultation Performed: 05/26/2024 - 1005
Requesting Provider: Dr. Borrego
Performing Provider: Dr. Najera
Reason for Consultation: Rapid A-fib/NSTEMI/Shock
Medical History
-
Chief Complaint: Lower extremity swelling
History of Present Illness:
79-year-old male with past medical history of below who presented with lower extremity swelling on 05/14/2024. Swelling has been ongoing for about 1.5 weeks. He initially had no shortness of breath or chest pain. He also had abdominal swelling.
Initially in the ER he was afebrile to 98 �F, pulse rate 107, breathing at 18 breaths/min, BP 144/82 and saturating 95% on room air. Initial labs showed leukocytosis to 12.9, Hb 13.5, INR 1.77, T. bili 2.6, elevated LFTs with AST 232, ALT 289,
proBNP elevated at >27,000, and troponin negative at <0.012. Initial CXR showed mild acute pulmonary edema. He was given Lasix 40 mg IVP x 1 and then admitted to telemetry for further management. Cardiology as well as infectious disease were
consulted. Serologies were sent for viral hepatitis and Lyme (both negative). He was started on IV Lasix,, and echo showed LVEF 30% with global hypokinesis, mild�moderate MR, severe aortic stenosis with peak/mean gradient of 60/38, respectively,
with severe pulmonary hypertension with PASP: 77 mmHg assuming an RAP of 15 mmHg. Also mild�moderate AI. Given concern for possible tick bite, doxycycline was started on 05/15 (finished on 05/20). Given his extent of valvular heart disease, CT
surgery was consulted. LHC performed on 05/16/2024 showing nonobstructive CAD with severely elevated biventricular filling pressures with pre + postcapillary pulmonary hypertension with severely reduced cardiac output with CO/CI: 3.3/1.7, with PVR
5.5 Wood units and PCWP 33 mmHg with mean PAP: 51 mmHg. Given his poor dentition, dental clearance was recommended. Orthopantogram was performed on 05/21 showing numerous missing mandibular teeth and no gross findings to suggest a destructive
process. He had been continued to be managed on the floor on IV lasix (40mg BID). He was started on amiodarone on 05/23 due to new onset rapid A-fib -Amio was stopped the next morning on 05/24 due to hypotension with patient NSR in the 80s. Morning
labs on 05/26, patient's Hb was 7 and 1 unit PRBC was given. He then developed hypoglycemia with BG of 31, was in rapid A-fib and hypotensive with SBP in the 70s. He was transferred to the ICU for further care and coater hand services consulted for
additional management/recommendations.
When I saw the patient, he was tachycardic with heart rate labile between the 130�150s, hypotensive with BP 80/60, saturating 99% on room air and he appeared lethargic but still easily arousable and answering questions appropriately. Patient's
brother, Seth, at bedside. All questions were answered. Patient is currently not bleeding with no hematemesis, epistaxis, or rectal bleeding or hematuria seen at bedside. Patient denies shortness of breath although he is tachypneic with rate in
the mid 20s. The patient denies chest pain, NEVES, nausea, fevers or chills.
PMHx: Secondhand tobacco smoke exposure, former alcohol use
PSHx: Non-contributory
Past Medical History
Past Medical History: Other (Above as per HPI)
Past Surgical History: Other (Above as per HPI)
Social History
Tobacco: Other (Secondhand smoke exposure x 10-15 years)
Alcohol: Former
Drug: None
Personal: Single
Living: Alone
Family History
Family History: Hypertension (Mother) and Other (Mother: CHF)
Allergies / Home Medications
Allergies
Allergy/AdvReac Type Severity Reaction Status Date / Time
No Known Allergies Allergy Unverified 05/14/24 11:56
Home Medications
�Medication �Instructions �Recorded �Confirmed �Last Taken �Type
No Meds [No Current Medications] 05/14/24 05/14/24 Unknown History
Review of Systems
-
History Source: Patient
All other systems: Negative unless noted
Vitals / Labs / Diagnostic Testing
Vital Signs
Temp Pulse Resp BP Pulse Ox
97.9 F 145 20 106/61 98
05/26/24 06:15 05/26/24 07:59 05/26/24 06:15 05/26/24 06:15 05/26/24 06:15
Lab Data
05/26/24 08:24
05/26/24 08:24
Laboratory Results
05/25/24 05/26/24
23:20 08:24
PT 26.5 H 37.3 H
INR 2.46 3.77
APTT 42.8 H
Diagnostic Testing:
Physical Exam
-
HEENT: Normocephalic and Anicteric
Cardiovascular: Irregular Rhythm (Irregularly irregular), Peripheral Edema (+2 lower extremity pitting edema bilaterally) and Other (Tachycardic)
Respiratory: Wheeze (negative), Rales (negative), Rhonchi (negative) and Accessory Resp Muscle Use (mild at rest)
GI: Soft, Distended, Non Tender and Normal Bowel Sounds
Neurology: Awake, Alert and Tremors (negative)
Skin: Warm and Dry
General: Respiratory Distress (Positive/tachypneic), Fever (negative), Chills (negative), Sweats (negative) and Other (Ill-appearing)
Assessment
-
Assessment: 79-year-old male with a PMHx of secondhand smoke exposure + former alcohol use who presented with lower extremity swelling on 05/14/2024. Swelling has been ongoing for about 1.5 weeks. He was found to be in acute decompensated heart
failure and was treated with Lasix. Also found to have valvular heart disease with severe aortic stenosis in addition to aortic insufficiency, mitral regurgitation and tricuspid regurgitation. Cardiology, ID + cardiothoracic surgery consulted. He
was being managed on the floor and being worked up for TAVR, although required dental clearance due to poor dentition. On the morning of 05/26, he was anemic and 1 unit PRBC was transfused. He then developed hypoglycemia with rapid A-fib and
hypotension and transferred to the ICU for further care. [employer] Ass[employer] Supervisor Body services now consulted for additional management/recommendations.
Chronic conditions [employer]: Secondhand tobacco smoke exposure, former alcohol use
Impression:
#Cardiogenic shock in the setting of low-flow severe and severe TR with severe pulmonary hypertension + rapid A-fib
#Lactic acidosis with shock liver
#Acute HFrEF
#Rapid A-fib
#Elevated troponin likely due to NSTEMI with lateral ST depressions and reciprocal changes seen in aVR
#Hypoglycemia
#Severe pulmonary hypertension likely due to left-sided heart disease
#Valvular heart disease with severe aortic stenosis, mild-moderate aortic insufficiency, mild/moderate MR, mild MS and severe TR
#Leukocytosis
#Acute anemia
#Thrombocytopenia
#Coagulopathy with elevated INR
#Acute kidney injury
#Metabolic acidosis with increased anion gap
#Mediastinal lymphadenopathy likely due to acute volume overload in the setting of acute HFpEF
#Mild right-sided obstructive uropathy due in part to large parapelvic right renal cyst
Plan:
- Need HR control - start amiodarone but monitor BP
- Start IVF with 500cc bolus w/ NS 0.9% as IVC collapsibility shows 30% respiratory variation on today's bedside PocUS --> A-line predominant lung rubio, hence no current concern for acute pulmonary edema
- May need additional crystalloids depending on his response to bolus as above
- Keep MAP>65, goal HR<110
- Replete K>4, Mg>2
- Hold off on diuresis for now, re-assessing daily
- Cardiology consulted and recommendations appreciated
- If he ends up surviving this hospitalization, eventual reevaluation of TAVR workup with dental clearance; he will likely need surgery via OMFS
- Given his coagulopathy, would not use heparin drip at this time given risks outweigh benefits
- Continue with ASA
- Given his recent [facility], I suspect that this is a nonobstructive NSTEMI due to hypotension in the setting of severe aortic stenosis
- Phenylephrine drip should help increase coronary perfusion
- Continue trending troponin until peaks
- Unable to use statin given his severe transaminitis with shock liver
- In the setting of shock with lactic acidosis and severe aortic stenosis, start Neosynephrine to maintain MAP>65
- Would caution against starting an inotrope given his rapid A-fib and severe aortic stenosis
- Renally dose all medications and trend sCr, UOP; continue Cárdenas
- Follow up SPEP
- Start bicarb gtt and trend sHCO3 and blood gas to assure pH is >7.3 (goal 7.35-7.45)
- Check fibrinogen level to assure he is not going into DIC
- Hematology to review CBC slide to rule out schistocytes as there is possible concern for thrombotic thrombocytopenic purpura
- Trend LDH and check haptoglobin
- Trend LFTs and trend lactate until <2mmol/L
- GI on board - recs appreciated
- Follow-up ceruloplasmin; follow-up immunoglobulin panel
- Follow up HIV and hepatitis A IgM serology
- Maintain SpO2 >90-94% - currently on room air
- Maintain MAP>65
- Replete electrolytes with K>4, Mg>2
- Maintain euglycemia with goal BG 140-180
- Trend H/H and transfuse if needed to keep Hb>7g/dL; kep plt>20k, unless there is concern for bleeding then keep plt>50k
- prn nebulized bronchodilators - not currently bronchospastic
- Incentive spirometer encouraged as tolerated
- Will eventually need repeat CT chest if he survives this hospitalization to follow-up mediastinal lymphadenopathy given he has a 2 cm right paratracheal lymph node
- DVT ppx: SCDs for now; hold off on chemical ppx given her coagulopathy
- Guarded prognosis
IV access: Inadequate IV access; I will insert central line at bedside as he is coagulopathic and PICC team is not comfortable inserting midline or PICC at this time given coagulopathy
Critical care statement: A total of 40 minutes of critical care time was provided for this patient today. This includes management of unstable vital signs, evaluation of the patient at bedside, reviewing the patient's pertinent medical records
including radiographs, microbiology, laboratory evaluations, and discussion with primary team, consultants, pharmacy, nutrition, physical therapy, case management, charge nurse, critical care nursing, and respiratory therapy.
Data:
CXR 05/26/2024: Cardiomegaly without associated pulmonary edema
CT abdomen/pelvis with PO contrast 05/25/2024:
Moderate right pleural effusion, similar to CT of May 21, 2024. Hazy parenchymal opacity within both lower lungs, most likely pulmonary edema.
Increased density within the gallbladder lumen, most likely vicarious excretion of contrast.
Diffuse decreased density of the liver, which could be from fatty infiltration. This could also be on the basis of diffuse edema.
Moderate to severe subcutaneous edema.
Small to moderate amount of free fluid within the pelvis.
Bilateral renal cysts including a right-sided central parapelvic cyst.
Residual contrast density within the kidneys, would be suggestive of ATN.
Moderate to severe calcification of the aorta with changes of chronic dissection, stable.
TTE 05/15/2024:
Moderately reduced left ventricular systolic function. Left ventricular
ejection fraction is 30%.
Global hypokinesis.
Mild/moderate mitral regurgitation. Mild mitral stenosis.
Severe aortic stenosis. Peak/mean gradients across the aortic valve are 60/38
mmHg, and increase to 172/102 mmHg post PVC.
Using an LVOT diameter of 2.0 cm the aortic valve by the Continuity equation is
calculated at 0.8 cm2. Mild/moderate eccentric aortic regurgitation.
Mildly enlarged right ventricular size. Normal right ventricular systolic
function.
Severe tricuspid regurgitation. Severely elevated PASP. Estimated pulmonary
artery pressure of 77 mmHg assuming a right atrial pressure of 15 mmHg.
Ectatic proximal ascending aorta measures 3.9 cm.
[2024-05-26 10:17] LABS: Glucose - Point of Care 56 mg/dl (70-99)
[2024-05-26 10:18] LABS: AST (SGOT) 2593 U/L (17-59)
--- NOTE | 2024-05-26 10:20 | PTCARENOTE ---
Dr. Wyman notified of elevated troponin. We will not trend as ordered.
[2024-05-26 10:37] LABS: Glucose - Point of Care 102 mg/dl (70-99)
[2024-05-26] MEDS: LOW STRENGTH ASPIRIN 81 MG PO (10:37)
[2024-05-26] MEDS: SODIUM BICARBONATE 1150 MEQ IV ×2 (11:33→23:06)
[2024-05-26 11:44] LABS: LDH 3359 U/L (120-246)
[2024-05-26] MEDS: NEO-SYNEPHRINE 250 IV (11:53)
--- NOTE | 2024-05-26 11:55 | W.PN.UPDATE ---
Update Note
Progress Note Update
After patient was transferred to the ICU this morning, discussion held with the patient's brother, Seth, in front of the patient. Patient has multiorgan failure with severe lactic acidosis, shock liver and A-fib with RVR. Given his coagulopathy
and severity of valvular heart disease and now with what appears to be an NSTEMI, he is in a critically ill state. We discussed that if his heart were to stop or if his breathing worsened, that doing CPR in the setting of severe pulmonary
hypertension with valvular heart disease would most likely not lead to a favorable outcome. We concluded that if patient's heart were to stop that we would not do CPR, and that if he had difficulty breathing that we would not put him on a
mechanical ventilator. [facility]. All questions were answered and emotional support was provided.
Of note, the patient's brother had filled out his own advance directive/living will and the patient admitted that he had signed it, and I witnessed this. I still advised to the patient's brother to bring this form to a manga artist to officially enact it.
--- NOTE | 2024-05-26 12:00 | PTCARENOTE ---
PICC LINE ORDER ON HOLD D/T INR 05/26 3.77, SPOKE WITH PRIMARY RN J[place]. VAT AVAILABLE NEEDED
--- NOTE | 2024-05-26 12:08 | W.PN.GI.CBS2 ---
Today's Communication / Plan
-
ASMA
BRONWYN
AMA
supportive care
Assessment / Plan
-
Pt is a 79yo with hx former ETOH use years ago but no significant history on admission but has not seen MD in december years with ER eval 05/14 with LE swelling, fatigue on admission concern for decompensated CHF with noted severe /TR, PAF,
bifascicular block with current TAVR work up. He is noted during admission with drop in hbg 13.5 down to 8.3 with some low iron sat 17 but stable ferritin and borderline iron deficiency per hematology with further work up with normal retic count
less likely severe hemolysis, and SPEP, light chain pending. He has also some drop in platelet to 113 during admission. He is also noted with persistent elevated LFT's with bili 2.6, d jose 0.9, AST 232, ALT 289, alk phos 78 with persistent
elevation and further rise to jose 2.6, AST 1123, ALT 552 and alk phos 64 in setting of diuresis. INR has been elevated up to 1.94 now down to 1.44. Hepatitis and lyme negative. CT prior to TAVR with small to mod right and tiny left effusion, 2 cm
right paratracheal lymph node, small to moderate ascites, mild right obstructive uropathy with parapelvic renal cyst, enlarged prostate, US with b/l effusion. small volume ascites around liver, renal cyst. No prior hx hepatitis or liver problems in
past.
- anemia with heme + stool with bordeline iron deficiency
-marked elevated LFT's with rise over last day
-decresaed appetite
-acute HFrEF with marked LE swelling, DELUCA and decresaed EF
-severe
-severe TR
-b/l effusion
-PAF
-bifascicular block
-ascites
-rash
-obstructive uropathy on imaging
-coagulopathy
-hypoalbuminemia
PLAN:
1 normocytic anemia with a gradual drop in hemoglobin and 1 episode of melena with OB positive stool. Does have a significantly elevated BUN with normal creatinine which could be related to possible upper GI bleed but also has been on diuresis
possible dehydration and has had hypotension so Lasix was discontinued today. most likely etiology of bleed could be peptic ulcer disease versus angioectasias given severe vs less likely neoplasm CT was negative for this. Hold on any invasive
workup for now given how critically ill he is currently.
2 abnormal LFTs with significant transaminitis worsening now with elevated INR and also multiorgan failure with worsening HUE most likely multifactoral from possible congestive hepatopathy and also low flow state with hypotension with probable
component of shock liver and also amiodarone possible Dili( although I think this is less likely) amiodarone was discontinued 05/25 and restarted today. His liver appeared normal on ultrasound his hepatitis serologies were negative Lyme antibody was
also negative. Prior history of EtOH abuse but no cirrhosis noted on imaging. CT shows edema or fatty infiltration of the liver. Now with hypoglycemia and acidosis, worsening INR concerning for worsening acute liver failure. Doubt autoimmune
hepatitis will get serology just to complete workup. Doppler US pending. Overall prognosis is poor given his underlying multiple cardiac issues also
-
Subjective
Subjective
Date of Service: May 26, 2024
Events from last night noted. Rapid response called earlier today and had hypoglycemia and hypotension and is currently in the ICU and has been restarted on amiodarone drip for arrhythmia and tachycardia. Worsening leukocytosis and also with
worsening HUE and LFTs. Also elevated INR
Objective
Data Reviewed
Laboratory Data:
Laboratory Results
05/26/24 08:24
05/26/24 08:24
Laboratory Results
PT 37.3 Sec (11.4-14.6) H 05/26/24 08:24
INR 3.77 05/26/24 08:24
APTT 42.8 Sec (23.4-35.0) H 05/25/24 23:20
Phosphorus 5.7 mg/dl (2.5-4.5) H 05/26/24 08:24
Magnesium 2.4 mg/dl (1.6-2.3) H 05/26/24 08:24
Total Bilirubin 5.6 mg/dl (0.2-1.3) H D 05/26/24 08:24
AST 2593 U/L (17-59) H* 05/26/24 08:24
ALT 1183 U/L (0-50) H* 05/26/24 08:24
Alkaline Phosphatase 45 U/L (38-126) 05/26/24 08:24
Vital Signs and I&O:
Vital Signs
Temp Pulse Resp BP Pulse Ox
98.2 F 145 20 84/56 98
05/26/24 10:29 05/26/24 07:59 05/26/24 06:15 05/26/24 07:15 05/26/24 06:15
I&O
05/25/24 05/26/24 05/27/24
06:59 06:59 06:59
Intake Total 1380 / 1380 1420 / 1420 106 / 106
Output Total 1375 / 1375 750 / 750
Balance 5 / 5 670 / 670 106 / 106
05/25/24 Ct abdomen and Pelvis IMPRESSION:
Moderate right pleural effusion, similar to CT of May 21, 2024. Hazy parenchymal opacity within both lower lungs, most likely pulmonary edema.
Increased density within the gallbladder lumen, most likely vicarious excretion of contrast.
Diffuse decreased density of the liver, which could be from fatty infiltration. This could also be on the basis of diffuse edema.
Moderate to severe subcutaneous edema.
Small to moderate amount of free fluid within the pelvis.
Bilateral renal cysts including a right-sided central parapelvic cyst.
Residual contrast density within the kidneys, would be suggestive of ATN.
Moderate to severe calcification of the aorta with changes of chronic dissection, stable.
Physical Exam
Physical Exam
HEENT: Other (icteric)
Cardiology: Normal Sinus Rhythm and Other (systolic murmur)
Pulmonary: Other (decreased BS at bases)
GI: Soft, Non Distended, Non Tender, Normal Bowel Sounds and Other (ecchymosis on lower abdomen)
[2024-05-26 12:16] LABS: Glucose - Point of Care 70 mg/dl (70-99)
[2024-05-26] MEDS: NSS 500 IV (12:20)
[2024-05-26] MEDS: CORDARONE 103 MG IV (12:30)
--- NOTE | 2024-05-26 12:35 | CM ---
CM consult about living will. Patient's brother, Gerald, gave bedside RN a pack of papers and asked her to sign as the witness. Bedside RN stated that patient was very confused and would need to be more coherent in order that he may understand what was
being witnessed. She also stated that if it was financial information, she would not be able to sign it as well.
CM called brother who stated it was not financial information. It was his brother's dying wishes. LUCAS educated Gerald that if it has any financial information it would need to go to a notary and be notarized. Gerald asked if we had a notary in house or if
there was one around the hospital. LUCAS re-educated Gerald that if it patient's dying wishes, he could bring that information back to the hospital. Gerald thanked LUCAS and hung up.
[2024-05-26] MEDS: ProAmatine 15 MG PO (12:49)
[2024-05-26 14:08] LABS: Lactic Acid 12.5 mmol/L (0.7-2.0)
[2024-05-26 14:19] LABS: Fibrinogen 130 MG/DL (199-459)
--- NOTE | 2024-05-26 14:27 | W.PN.HOSP.TC ---
Today's Communication/Plan
-
Amio load +/- cody
Heme eval
BRONWYN, ASMA, ASA work up although doubt autoimmune
RUQ doppler
holding on diuretics for now
monitor DIC labs
appreciate all specialists input
prognosis poor
Assessment / Plan
Assessment / Plan
#Acute decompensated HFrEF, non ischemic
#Severe aortic stenosis
#Severe pulmonary hypertension with TR
#PVCs
-TTE yesterday showed EF 30% with global hypokinesis, severe aortic stenosis with high gradient and JUDSON 0.8
-Suspect NICM with degree of valvular stenosis though cannot rule out ischemic disease, limited history
-Volume status is improving on Lasix regimen; Hold IV lasix; due to lower perfusion levels, and was planning on starting back once dental extractions occurred
--Trial Albumin, metolazone 05/25 to possibly medically optimize for EGD/[place]
-Started on beta-deion for GDMT, stopping due to bradycardia/hypotension;
-Outpatient TAVR workup: BMP 05/24, CT TAVR 06/03, CT surgery eval 06/11, dental clearance prior to TAVR
-Cardiology is following
-Start dietary restrictions with 2 g sodium, no added salt and 60 ounce fluid restriction
-Plan for TAVR as severe aortic stenosis prohibiting adequate diuresis
-Monitor on telemetry
-Tooth extraction as per dentistry (Holding due to anemia,lfts)
-CT surg consulted
# onset atrial fibrillation with RVR, currently in NSR
-Start amiodarone understanding all of LFTs
� HUE precludes digoxin use
� Hypotension precludes AV go blockade
� Anticoagulation after confirming timing of teeth extraction - holding now due to anemia
#Anemia, acute v acute on on chronic
#Thrombocytopenia
-received 1u prbc 05/26
-iron low - start IV iron although doubt this is the issue at the time
-retic wnl
--LDH High, haptoglobin WNL
-Bilis high - as per heme, no obvious Schistocytes on smear on 05/24 - re-engaged heme again
-folate, b12 wnl
-will need to monitor hgb once anticoag started
-heme consulted
-Now stool darker - consulted GI for EGD/[place] - suspect angiectasias
##Acute transaminitis
#Elevated T. bili
-suspect 2/2 to hepatic congestion + superimposed hepatic insult - unclear if due to amiodarone v other. doubt shock liver due as BP remains stable albeit lower
-F/u RUQ sono with doppler
-ASMA, BRONWYN, AMA f/u
-F/u hep A
-GI Consulted
#Leukocytosis
-no obvious evidence of infection- most likely reactive
-monitor fever curve
-low threshold to start abx if spikes temp
#HUE on CKD2
#Metabolic acidosis
-Hematology evaluation for TTP - possibly 22/ to atrial fib
� Continue to monitor with resuscitation, control of A-fib, hemodynamics
#Lactic Acidosis
-also contributing to metabolic acidosis
-not requring pressors at this time
-worsened excretion with liver and renal failure
-possible portal vein thrombosis? other underlying gut ischemia although cannot undergo CTA abd/pelvis
-holding on anticoag due to acute anemia
#Coagulopathy
� Most likely secondary to synthetic dysfunction
� Continue to monitor with resuscitation
� Follow DIC labs
#Ascites around the liver
# Nonischemic myocardial injury
-no chest pain
-asa for now, hopefully can continue depending on hgb levels
-st depressions on ekg
Cardiac cath 05/16/2024: Severely elevated biventricular filling pressure. Severe pulmonary hypertension, nonobstructive coronary artery disease. Severely reduced cardiac output
##Bifascicular block
-New diagnosis, but stable.
#Obstructive uropathy on CT
-not seen on US
- ntd as per urology - can continue surgery planning
#Sinus opacity
-ENT consulted
#Severe TR
#Severe
-undergoing TAVR evaluation
--Consider inpatient evaluation/TAVR due to valvular stenosis prohibiting adequate diuresis
-Monitor with diuresis
#Hypokalemia
-monitor and replete
#PVC's, bigeminy, brief SVT
#Bifascicular block
-Continue metoprolol as above.
#Rash -- right sided extremities and torso, no pruritus; no target lesions
-less likely tick borne illness
-dc doxy
-if lyme serologies were positive would interpret as likely previous infection
DVT prophylaxis: Heparin
Diet: Sodium and fluid restricted
CODE STATUS: Full code
Prognosis: poor
Total time spent on today's encounter was 85 minutes which included time spent in counseling the patient/family regarding diagnosis and treatment plan as listed above, goals of care, and symptom management. Case was discussed with nursing staff,
specialists, and care coordinators/case management. All labs and imaging personally reviewed by me. Remainder the time spent in detailed review of previous records, lab data, imaging, and other medical provider documentation.
Anticipated Discharge: > 48 hours
Subjective/Interval History
-
Date of Service: May 26, 2024
Patient had rapid, uncontrolled A-fib, lethargy, hypoglycemic
Objective Data
-
Labs:
Laboratory Results
05/26/24
08:24
WBC 28.2 H
Hgb 7.5 L
Hct 23.6 L
Plt Count 143
PT 37.3 H
INR 3.77
Sodium 143
Potassium 4.0
Chloride 94 L
Carbon Dioxide 13 L*
BUN 100 H
Creatinine 2.2 H
Glucose 50 L*
Calcium 9.3
Total Bilirubin 5.6 H D
AST 2593 H*
ALT 1183 H*
Alkaline Phosphatase 45
Vital Signs:
Vital Signs
Temp Pulse Resp BP Pulse Ox
98.1 F 120 20 82/64 98
05/26/24 12:27 05/26/24 12:49 05/26/24 06:15 05/26/24 12:49 05/26/24 06:15
I&O
05/25/24 05/26/24 05/27/24
06:59 06:59 06:59
Intake Total 1380 / 1380 1420 / 1420 106 / 106
Output Total 1375 / 1375 750 / 750
Balance 5 / 5 670 / 670 106 / 106
Review of Systems
-
History Source: Patient
All other systems: Not reviewed unless documented
Physical Exam
-
General: Well Nourished, No Apparent Distress, Appears in Distress and Other (Lethargic)
HEENT: Normocephalic, Atraumatic, Moist Mucous Membranes and Anicteric
Respiratory: Clear to Auscultation and Non Labored Respirations; Negative Wheezes, Rales or Rhonchi
Cardiac: Irregular Rhythm, Murmur and JVD; Negative Rub or Gallop
GI: Soft, Nontender, Nondistended and Normal Bowel Sounds
Musculoskeletal: No Clubbing, No Cyanosis and Other (2+ lower extremity edema bilaterally)
Skin: Warm, Dry and Normal Turgor; Negative Rash or Jaundice
Neuro: AO x 3, Nonfocal/Grossly Intact and Central Nerve's Intact
Psych: Calm and Other (Lethargic)
Data Reviewed
-
Diagnostic Radiology: Image personally visualized and interpreted and Report Reviewed by me
Ultrasound: Image personally visualized and interpreted
Labs: Labs Reviewed by me
[2024-05-26 14:44] LABS: Osmolality Urine 358 mOsm/kg (300-900)
[2024-05-26] MEDS: SUBLIMAZE 25 MCG IV (14:45)
[2024-05-26] MEDS: VERSED 0.5 MG IV (14:46)
[2024-05-26 15:00] LABS: Urine Sodium 10 mmol/L (30-90)
--- NOTE | 2024-05-26 16:16 | W.SUR.POST ---
Surgical Immediate Post Op
Note
Bedside Central Line Insertion Procedure
Date of Procedure: 05/26/2024
Pre Op Diagnosis: Inadequate IV access; circulatory shock
Post Op Diagnosis: Same as above
Procedure Performed: Central line insertion procedure
Primary Surgeon/proceduralist: Dr. Najera
Secondary Surgeons: N/A
Anesthesia: N/A
Estimated Blood Loss: 5cc
Fluids: N/A
Drains/Shunts: N/A
Specimens/Cultures: N/A
Doppler/Duplex/Angio (Y/N): N/A
Complications: No immediate complications
Operative Findings: After informed verbal consent obtained, patient placed into Trendelenburg position. Pre-procedure ultrasound identified right internal jugular vein which was patent with apical�posterior diana touching indicating no thrombus
seen. Full sterile technique employed including handwashing, sterile gown, cap, mask, and sterile gloves. Patient draped in usual fashion. First the R�IJ site was anesthetized with 1% lidocaine instillation using about 10 cc. Trocar inserted
into right IJ vein with blood return seen entering syringe. Syringe removed and guidewire inserted into trocar without resistance. Trocar removed. Dilator was inserted without resistance. Dilator removed and then triple-lumen catheter inserted
over the wire to the hub and guidewire was removed entirely. Blood return from all 3 ports seen and 10 cc of NS 0.9% instilled into each port without resistance. Central line was sutured in place. Central line hub covered with Biopatch and then
Tegaderm. There were no immediate complications.
[2024-05-26] MEDS: SUBLIMAZE 50 MCG IV (17:18)
[2024-05-26 17:23] LABS: Hematocrit 23.2 % (39.0-52.0); Hemoglobin 7.3 g/dL (13.0-18.0); Mean Corp Hgb Conc. 31.5 g/dL (33.0-37.0); Mean Corpuscular Hgb 28.3 pg (27.0-31.0); Mean Corpuscular Volume 89.9 fL (80.0-94.0); Mean Platelet Volume 11.8 fL (7.4-10.4); Platelet Count 135 10^3/uL (130-400); Red Blood Cell Count 2.58 10^6/uL (4.70-6.10); Red Cell Dist. Width 17.5 % (11.5-14.5)
[2024-05-26] MEDS: FERRLECIT 110 MG IV (17:24)
[2024-05-26 17:30] LABS: Lactic Acid 17.9 mmol/L (0.7-2.0)
[2024-05-26 17:47] LABS: Glucose - Point of Care 95 mg/dl (70-99)
[2024-05-26] MEDS: ACETADOTE 254.8 MG IV (18:03)
[2024-05-26] MEDS: ACETADOTE 518.3 MG IV (19:15)
--- NOTE | 2024-05-26 19:50 | PTCARENOTE ---
Patient in bed. BP via RT upper arm : 98.0(rectal )-BP via RT upper arm 92/51 (MAP 65) SR 90 RT BBB; 98%RA. RR 25; Patient awake and oriented to him self and place. Non-Verbal pain assessment 5 or 10 pain scale level. pt reports of lower back
discomfort. 17:00 CBC and LA resulted. Rt IJ inserted at bedside. Biopatch and dressing intact. Sebas at 20/6ml infusing , D5 Sodium Bicarb 150meq at 1000/hr infusing. 1/2 unti of FFP infused. Acetadote st back at 129.5 initiated. Indwelling Cárdenas
draining dark deepika urine, pt continue with low urinal output. Skin not change since admission. Rt elbow and up dark blue bruise. Across lower abdominal dark blue bruise. diffuse petechia arms legs back and abdomen . Abdominal US pending .
--- NOTE | 2024-05-26 20:00 | PTCARENOTE ---
Assumed care of the patient at 1900. Patient confused, forgetful, able to say his name but couldn't provide year of , oriented to place, disoriented to time, and restless; turning and moving in bed frequently. HRR, murmur auscultated. Some
crackles in the bases of his lungs, initially on RA then 2LNC for SpO2 88%. Abdomen SNT, rounded. Patient had an episode of fecal incontinence, stool dark and loose, cleaned and repositioned. Temperature sensing Cárdenas catheter present, low output of
concentrated, deepika urine. Generalized purpura and petechial rash on axillae and trunk, some diffuse scabbing throughout, no drainage from sites. RIJ triple lumen central line present infusing cody, FFP, and sodium bicarb. Additional FFP pending.
Patient reoriented to place, explained POC and provided reassurance. Restraints applied for protective intervention, call todd within reach, reinforcement provided to the patient. Assessment of needs ongoing, see worklist for titration I/O details.
[2024-05-26 21:33] LABS: Hematocrit 21.8 % (39.0-52.0)
[2024-05-26 22:06] LABS: Blood Urea Nitrogen 106 mg/dl (9-20); Calcium 8.7 mg/dl (8.4-10.2); Carbon Dioxide 17 mmol/L (22-30); Chloride 92 mmol/L (98-107); Estimated Creatinine Clearance 22 ml/min; Glucose 74 mg/dl (70-99); Potassium 3.9 mmol/L (3.5-5.1); Sodium 143 mmol/L (135-145); eGFR 25.18
[2024-05-26 22:15] LABS: Lactic Acid 17.9 mmol/L (0.7-2.0)
--- NOTE | 2024-05-26 22:21 | W.PN.ONC2 ---
Today's Communication / Plan
-
Upon careful review, I do not find evidence of primary hematologic process such as hemolysis.
Liver failure, acute renal failure attributable to low BP.
Consider non-contrast CT abd to exclude internal bleeding such as retroperitoneal hematoma.
Consider repeat ECHO given change in BP.
Impression
Impression
CHF
severe
anemia
thrombocytopenia
Plan
Plan
Smear reviewed, a few fragments and margo cells but normal platelet count and normal-appearing WBC's.
Clinical picture most consistent with shock liver which can case marked LDH elevation as well as the coagulopathy we are seeing.
Normal platelet count not consistent with microangiopathic hemolytic process.
CBC near-normal on admission.
BP consistently low since late on 05/17, hemoglobin also began dropping around that time.
Subjective/Objective
Chief Complaint
Heme/Onc follow up of anemia
Subjective
Critically ill pt with anemia, marked LDH elevation, leukocytosis. Not doing well.
Vital Signs:
Vital Signs
Temp Pulse Resp BP Pulse Ox
97 F 98 19 95/53 99
05/26/24 22:02 05/26/24 22:02 05/26/24 22:02 05/26/24 22:02 05/26/24 20:57
Lab Results:
Laboratory Data
WBC 32.0 10^3/uL (4.8-10.8) H 05/26/24 16:53
Hgb 7.0 g/dL (13.0-18.0) L 05/26/24 21:23
Plt Count 135 10^3/uL (130-400) 05/26/24 16:53
PT 37.3 Sec (11.4-14.6) H 05/26/24 08:24
INR 3.77 05/26/24 08:24
APTT 42.8 Sec (23.4-35.0) H 05/25/24 23:20
eGFR 25.18 05/26/24 21:23
[2024-05-26] MEDS: ACETADOTE 1051.1 MG IV (23:07)
--- NOTE | 2024-05-26 23:13 | PTCARENOTE ---
Urine output ~5ml/hr. Discussed with KWAN Rivera. Currently on 2L NC, getting slightly more tachypneic, RR 25-30. Spo2 99%. Lungs with crackles bibasilar. Remains on bicarb gtt at 100ml/hr. Pt. resting at this time. No new orders at this time,
monitor closely.
--- NOTE | 2024-05-26 23:30 | PTCARENOTE ---
Patient's R arm noted to be significantly bruised/discolored. [employer] made aware of increasing edema around the site. Sebas discontinued for adequate pressures. Patient remains in restraints. VSS, tolerated FFP and cryo. RIJ dressing changed d/t drainage.
BG assessment WNL at 95. Assessment of needs ongoing.
[2024-05-27] VITALS (35 sets, daily range): BP systolic 67–104; BP diastolic 17–70; BMI 26.8
[2024-05-27 00:08] LABS: IgA 326 mg/dl (70-400); IgG 1618 mg/dl (700-1600); IgM 64 mg/dl (40-230)
[2024-05-27 00:15] LABS: Glucose - Point of Care 95 mg/dl (70-99)
[2024-05-27 03:37] LABS: Hematocrit 22.9 % (39.0-52.0); Hemoglobin 7.1 g/dL (13.0-18.0); Mean Corpuscular Hgb 28.2 pg (27.0-31.0); Mean Corpuscular Volume 90.9 fL (80.0-94.0); Mean Platelet Volume 11.6 fL (7.4-10.4); Platelet Count 134 10^3/uL (130-400); Red Blood Cell Count 2.52 10^6/uL (4.70-6.10); Red Cell Dist. Width 18.4 % (11.5-14.5); White Blood Cell Count 29.5 10^3/uL (4.8-10.8)
[2024-05-27 03:48] LABS: INR 4.15; PT 40.3 Sec (11.4-14.6)
[2024-05-27 03:53] LABS: Albumin 3.6 g/dl (3.5-5.0); Alkaline Phosphatase 22 U/L (38-126); Blood Urea Nitrogen 108 mg/dl (9-20); Calcium 8.7 mg/dl (8.4-10.2); Carbon Dioxide 16 mmol/L (22-30); Chloride 91 mmol/L (98-107); Direct Bilirubin 4.7 mg/dl (0.0-0.4); Estimated Creatinine Clearance 19 ml/min; Glucose 68 mg/dl (70-99); Magnesium 2.3 mg/dl (1.6-2.3); Phosphorus 6.2 mg/dl (2.5-4.5); Sodium 144 mmol/L (135-145); Total Bilirubin 6.6 mg/dl (0.2-1.3); Total Protein 5.8 g/dl (6.3-8.2); eGFR 21.07
[2024-05-27 03:57] LABS: NT-proBNP > 27000 pg/ml
[2024-05-27 03:59] LABS: ALT (SGPT) 1848 U/L (0-50); Lactic Acid 19.9 mmol/L (0.7-2.0)
[2024-05-27 04:16] LABS: AST (SGOT) 4190 U/L (17-59)
[2024-05-27 04:17] LABS: % Basophils 0.3 % (0-2); % Immature Granulocytes 5.8 % (0-0.5); % Lymphocytes 4.4 % (20.5-51.1); % Monocytes 3.7 % (1.7-9.3); % Neutrophils 85.8 % (42.2-75.2); Absolute Basophils 0.1 10^3/uL (0-0.2); Absolute Immature Granulocytes 1.7 10^3/uL (0-0.05); Absolute Lymphocytes 1.3 10^3/uL (1.2-3.4); Absolute Monocytes 1.1 10^3/uL (0.1-0.6); Absolute Neutrophils 25.3 10^3/uL (1.4-6.5); Nucleated Red Blood Cells % 10.7 % (-)
[2024-05-27] MEDS: DEXTROSE 50% SYRINGE 12.5 GRAMS IV (06:07)
[2024-05-27] MEDS: PITRESSIN 100 IV (06:17)
[2024-05-27 06:18] LABS: Glucose - Point of Care 62 mg/dl (70-99)
--- NOTE | 2024-05-27 06:22 | PTCARENOTE ---
Patient unstable. Sebas maxed and vasopressin added per [employer]. Hypoglycemic on AM labs. Dextrose IV administered. Mentation cantu, patient is increasingly altered/more difficult to reorient, [employer] at bedside to assess. Patient's brother contacted via
phone.
--- NOTE | 2024-05-27 06:55 | PTCARENOTE ---
Patient became bradycardic. Grunting respirations noted, patient no longer responding to verbal stimulus, [employer] at bedside, became asystolic. Report given to paz. Patient's brother at bedside.
--- NOTE | 2024-05-27 07:00 | W.PN.DEATH ---
Pronouncement of
-
Called to see patient to pronounce.
No spontaneous heart tones or respirations noted.
Patient not responsive to verbal stimuli.
Patient is pronounced .
Time of : 06:55
Date of : 05/27/24
Cause of : multisystem organ failure, cardiogenic shock, severe aortic stenosis,severe pulmonary hypertension
Family Notified: Yes (brother at bedside)
--- NOTE | 2024-05-27 07:09 | PTCARENOTE ---
MINERVA called...paperwork completed and on chart.
--- NOTE | 2024-05-27 07:34 | PTCARENOTE ---
Spoke w/ pt's brother, Gerald, at length. Emotional support provided and all questions answered. Gerald took all of pt's belongings home w/ him.
[2024-05-27 08:21] LABS: Free Lambda Light Chains,Quant 45.51 mg/L (5.71-26.30); Kappa/Lambda Fr Light Ratio 2.44 (0.26-1.65)
[2024-05-27 22:54] LABS: Hepatitis A IgM Antibody Negative (Negative)
[2024-05-28 01:56] LABS: Haptoglobin 48 mg/dL (30-200)
== END 2024-05-27 06:55 | disposition expired ==
LOC: ICU 18:15
PROVIDERS: Clinical Nurse Specialist Family Health; Emergency Medicine; Internal Medicine; Internal Medicine Cardiovascular Disease; Nurse Practitioner Adult Health; Nurse Practitioner Family; Nurse Practitioner Gerontology; Physician Assistant; Specialist; Student in an Organized Health Care Education/Training Program; Urology; ADMITTING PHYSICIAN Internal Medicine; ATTENDING PHYSICIAN Student in an Organized Health Care Education/Training Program; CONSULT PHYSICIAN Internal Medicine; CONSULT PHYSICIAN Internal Medicine Hematology & Oncology; CONSULT PHYSICIAN Otolaryngology Facial Plastic Surgery; CONSULT PHYSICIAN Student in an Organized Health Care Education/Training Program; EMERGENCY PHYSICIAN Emergency Medicine; OTHER PHYSICIAN Internal Medicine Critical Care Medicine; OTHER PHYSICIAN Internal Medicine Gastroenterology
PROC: 02HV33Z Insertion of Infusion Device into Superior Vena Cava, Percutaneous Approach (ICD-10-PCS; 2024-05-26)
PROC: 30233N1 Transfusion of Nonautologous Red Blood Cells into Peripheral Vein, Percutaneous Approach (ICD-10-PCS; 2024-05-26)
PROC: B2111ZZ Fluoroscopy of Multiple Coronary Arteries using Low Osmolar Contrast (ICD-10-PCS; 2024-05-26)
PROC: B2151ZZ Fluoroscopy of Left Heart using Low Osmolar Contrast (ICD-10-PCS; 2024-05-26)
PROC: 4A023N8 Measurement of Cardiac Sampling and Pressure, Bilateral, Percutaneous Approach (ICD-10-PCS; 2024-05-26)
PROC: 30233K1 Transfusion of Nonautologous Frozen Plasma into Peripheral Vein, Percutaneous Approach (ICD-10-PCS; 2024-05-26)
DX: I50.41 Acute combined systolic (congestive) and diastolic (congestive) heart failure (principal); K72.00 Acute and subacute hepatic failure without coma; I21.4 Non-ST elevation (NSTEMI) myocardial infarction; I45.2 Bifascicular block; R18.8 Other ascites; E87.20 Acidosis, unspecified; N17.9 Acute kidney failure, unspecified; D68.8 Other specified coagulation defects; I08.3 Combined rheumatic disorders of mitral, aortic and tricuspid valves; Z66 Do not resuscitate; R57.0 Cardiogenic shock; R21 Rash and other nonspecific skin eruption; E87.5 Hyperkalemia; K02.9 Dental caries, unspecified; S02.5XXA Fracture of tooth (traumatic), initial encounter for closed fracture; X58.XXXA Exposure to other specified factors, initial encounter; I48.0 Paroxysmal atrial fibrillation; D50.9 Iron deficiency anemia, unspecified; I25.10 Atherosclerotic heart disease of native coronary artery without angina pectoris; I27.29 Other secondary pulmonary hypertension; D69.59 Other secondary thrombocytopenia; R59.0 Localized enlarged lymph nodes; N28.1 Cyst of kidney, acquired; E16.2 Hypoglycemia, unspecified; E88.09 Other disorders of plasma-protein metabolism, not elsewhere classified; Z77.22 Contact with and (suspected) exposure to environmental tobacco smoke (acute) (chronic); N18.2 Chronic kidney disease, stage 2 (mild); E87.6 Hypokalemia; Z82.49 Family history of ischemic heart disease and other diseases of the circulatory system
CPT/HCPCS: 70355; 71045; 71046; 74174; 74176; 75572; 76700; 80048; 80053; 80061; 80076; 81003; 81015; 82140; 82248; 82390; 82436; 82550; 82570; 82607; 82728; 82746; 82784; 82962; 83010; 83521; 83540; 83550; 83605; 83615; 83735; 83880; 83935; 84100; 84155; 84165; 84300; 84484; 85014; 85018; 85025; 85027; 85045; 85379; 85384; 85610; 85730; 86015; 86022; 86038; 86381; 86618; 86694; 86704; 86706; 86708; 86709; 86803; 86850; 86880; 86900; 86901; 86920; 87015; 87086; 87207; 87340; 93005; 93306; 93460; 93975; 96374; 97110; 97116; 97162; 97166; 97530; 97535; 99285; C1894; J0132; J1160; J2916; J7030; P9012; P9016; P9047; P9059; Q9967